=== PATIENT | male | born 1970 | race African-American/Black ===

== ENCOUNTER 2019-09-05 06:41 | Outpatient (CLI) | payer BC, SELFPAY ==
--- NOTE | 2019-09-05 | ECHO_ITS ---
Patient Info Name: Clifton Sanchez Age: 49 years : 1970 Gender: Male Ht: 70 in Wt: 343 lbs BSA: 2.86 m2 HR: 91 bpm BP: 179 / 98 mmHg Technical Quality: Good Exam Date: 09/05/2019 7:15 AM Exam Location: [facility] Patient Status: Outpatient Admit Date: 09/05/2019 Staff Ordering Physician: PHYSICIAN NOT ON STAFF, NONSTAFF Water Plant Maintenance Mechanic: Clint Hernandez RDCS, RT Attending Provider: PHYSICIAN NOT ON STAFF, NONSTAFF Exam Type: CA echo doppler color flow Study Info Indications R60.0 - Localized edema Complete two-dimensional, color flow and Doppler transthoracic echocardiogram is performed. Summary 1. Left ventricular chamber dimension is normal. 2. Left ventricular systolic function is normal, estimated at 55-60%. 3. There is mildly increased left ventricular wall thickness. 4. The left ventricular diastolic function is normal. 5. E/e' 9 is minimally elevated. 6. Dilated inferior vena cava with >50% collapse upon inspiration consistent with elevated right atrial pressure, 10 mmHg. Left Ventricle E/e' 9 is minimally elevated. Left ventricular chamber dimension is normal. Left ventricular systolic function is normal, estimated at 55-60%. There is mildly increased left ventricular wall thickness. The left ventricular diastolic function is normal. Right Ventricle Right ventricular chamber dimension is not well visualized. Left Atria Left atrial chamber dimension is normal. Right Atria Right atrial chamber dimension is normal. Aortic Valve The aortic valve is trileaflet. There is no aortic valve stenosis. There is no aortic valve regurgitation. Pulmonic Valve There is no pulmonic regurgitation. Mitral Valve There is no mitral valve stenosis. There is no mitral valve regurgitation. Tricuspid Valve There is no tricuspid valve regurgitation. Pericardium/Pleural There is no pericardial effusion. Inferior Vena Cava Dilated inferior vena cava with >50% collapse upon inspiration consistent with elevated right atrial pressure, 10 mmHg. Aorta The aortic root size at the sinus of Valsalva is normal. Left Ventricular Outflow Tract Name Value Normal LVOT 2D LVOT Diameter 2.1 cm LVOT Doppler LVOT Peak Gradient 3 mmHg LVOT Mean Gradient 2 mmHg LVOT VTI 19 cm LVOT VTI/AV VTI Ratio 0.9 LVOT Stroke Volume 65 ml LVOT CO 6.0 l/min LVOT CI 2.1 l/min/m2 Pulmonic Valve Name Value Normal PV Doppler PV Peak Gradient 3 mmHg Mitral Valve Name Value Normal
== END 2019-09-05 06:42 | disposition home or self-care (01) ==
LOC: ANHCARD 06:45
PROVIDERS: PCP Family Medicine
DX: R60.1 Generalized edema (principal)
CPT/HCPCS: 93306

== ENCOUNTER 2020-02-25 10:00 | Inpatient (IN) | payer BC, SELFPAY ==
[2020-02-25] VITALS (10 sets, daily range): BP systolic 116–136; BP diastolic 59–85; PULSE 99–118; RESP 16–25; TEMP 36.8–38.9; O2SAT 90–100; BMI 51.7
--- NOTE | ~2020-02-25 | XR_ITS ---
EXAMINATION: XR lumbar spine 2-3V EXAM DATE: 02/26/2020 17:11 INDICATION: Fall, left leg pain and tingling. Urinary retention. TECHNIQUE: Lumber spine frontal, lateral, lateral L5-S1 projections for interpretation. There is no prior study for comparison. FINDINGS: Mild to moderate loss of the L5-S1 disc height, mild disc disease at the other lumbar leve ls. The vertebral body heights are maintained. Mild to moderate lower lumbar spondylosis. There are n o acute fractures identified. There is no spondylolysis. Sacrum, sacroiliac joints, sacral arcuate li omar are intact. Calcifications in the pelvis are believed to be phleboliths. The vertebral bodies are aligned in the AP dimension. IMPRESSION: Mild to moderate lumbar spondylosis. Reviewed, dictated and finalized at location A.
--- NOTE | ~2020-02-25 | CT_ITS ---
EXAMINATION:CT chest wo con DATE: 02/29/2020 09:17 INDICATION: Fever. Atelectasis. TECHNIQUE: Computed tomography (CT) of the chest was performed without intravenous contrast. Automate d exposure control and iterative reconstruction technique were employed. The dose-length product (DLP ) was 1005.90 mGy-cm. COMPARISON: Chest CT 02/20/2008, chest single view 02/25/2020 FINDINGS: There is minimal atelectasis in the lungs. No pleural effusion. The heart size is normal. T here are coronary artery calcifications. No pericardial effusion. There are no pathologically enlarge d lymph nodes. There is diffuse hepatic steatosis. There are bridging endplate osteophytes at multipl e levels in the spine, consistent with diffuse idiopathic skeletal hyperostosis (DISH). There is mild thoracic spondylosis. IMPRESSION: 1. Minimal atelectasis in the lungs. Reviewed, dictated and finalized at location A.
--- NOTE | ~2020-02-25 | US_ITS ---
EXAMINATION: US knee asp inj w image LT DATE: 02/28/2020 16:03 INDICATION: Fever, sepsis and left knee pain and effusion. TECHNIQUE: A time-out was performed to verify the patient's name, date of , and procedure to be performed . The procedure and its benefits and risks were discussed with the patient. Risks specifically discus sed included bleeding and infection. The patient understood the risks and agreed to proceed. Shearing Machine Feeder im ages demonstrated a small amount of fluid in the medial and lateral gutters of the suprapatellar pouc h. An anterior approach targeting the lateral side of the suprapatellar pouch was chosen. The left kn ee was prepped and draped in the usual sterile manner. 3 mL 1% lidocaine was used for local anesthes ia. An 18-gauge trocar needle was advanced into the fluid collection with continuous sonographic guid ance. 9 mm of viscus relatively clear dark yellow-colored fluid was aspirated and sent to the lab for studies as ordered by the referring physician. The needle was removed and a sterile bandage was appl ied. There were no immediate complications. FINDINGS: Grayscale ultrasound images demonstrate the aspiration needle advanced into the small left knee joint effusion located at the lateral aspect of the suprapatellar pouch along side the patella. IMPRESSION: 1. Successful ultrasound-guided fine left knee arthrocentesis. Reviewed, dictated and finalized at location A.
--- NOTE | ~2020-02-25 | XR_ITS ---
EXAMINATION: XR hip LT min 3V w AP pelvis EXAM DATE: 02/26/2020 17:11 INDICATION: Initial encounter following injury, with pain of the pelvis, left hip. TECHNIQUE: Left hip frontal, crosstable lateral and 'frog-leg' projections for interpretation. Fronta l projection pelvis. There is no prior study for comparison. FINDINGS: There is mild to moderate symmetric bilateral hip primary osteoarthritis. There are no acut e pelvic or left hip fractures or dislocations identified. There is no subcutaneous gas. The soft t issue is unremarkable. There are no radiopaque foreign bodies. IMPRESSION: 1. Pelvis, left hip exam without acute osseous findings. Reviewed, dictated and finalized at location A.
--- NOTE | ~2020-02-25 | XR_ITS ---
EXAMINATION: XR chest 1V portable DATE: 02/25/2020 10:27 INDICATION: Fever. TECHNIQUE: A single frontal view of the chest was obtained. COMPARISON: Chest single view 01/27/2008, chest CT 02/20/2008 FINDINGS: Sensitivity and specificity are decreased by obesity. There are airspace opacities in the l ower lung zones. No pleural effusion or pneumothorax. The heart size is normal. IMPRESSION: 1. Airspace opacities in the lower lung zones, consistent with atelectasis versus pneumonia. Reviewed, dictated and finalized at location B. IMPRESSION: 1. Airspace opacities in the lower lung zones, consistent with atelectasis vers us pneumonia.
--- NOTE | ~2020-02-25 | CT_ITS ---
EXAMINATION: CT abdomen pelvis wo con DATE: 02/25/2020 11:41 INDICATION: Flank pain. Fever. TECHNIQUE: Computed tomography (CT) of the abdomen and pelvis was performed without intravenous contr ast. Automated exposure control and iterative reconstruction technique were employed. The dose-length product was 1589.92 mGy-cm. COMPARISON: None. FINDINGS: The visualized portions of the lung bases demonstrate mild atelectasis. No pleural effusion . The heart size is normal. No pericardial effusion. There is diffuse hepatic steatosis. The gallblad jorge, spleen, pancreas, adrenal glands, and kidneys are normal. There is no urolithiasis. The prostate is mildly enlarged. There are no dilated loops of bowel. The appendix is normal. There are no pathol ogically enlarged lymph nodes. There is no free intraperitoneal fluid. There is mild lumbar spondylos is. IMPRESSION: 1. No urolithiasis. Reviewed, dictated and finalized at location B. IMPRESSION: 1. No urolithiasis.
--- NOTE | ~2020-02-25 | US_ITS ---
EXAMINATION: US venous doppler [facility] DATE: 02/26/2020 08:59 INDICATION: Lower limb edema. TECHNIQUE: Grayscale ultrasound images without and with compression and Doppler ultrasound images of the bilateral lower extremity veins were obtained. COMPARISON: Ultrasound 05/26/2019 FINDINGS: The visualized portions of right common femoral vein, profunda (deep) femoral vein, femoral vein, pop liteal vein, peroneal veins, posterior tibial veins, and greater saphenous vein outflow are patent. The visualized portions of left common femoral vein, profunda femoral vein, femoral vein, popliteal v ein, peroneal veins, posterior tibial veins, and greater saphenous vein outflow are patent. IMPRESSION: 1. No deep venous thrombosis. Reviewed, dictated and finalized at location B.
--- NOTE | ~2020-02-25 | XR_ITS ---
EXAMINATION: XR knee LT 3V EXAM DATE: 02/26/2020 17:11 INDICATION: Initial encounter following injury, with pain of the left knee. TECHNIQUE: Three projections of the left knee. Comparison is made to prior examination from 9. FINDINGS: There are no acute left knee fractures or dislocations identified. There is no subcutaneou s gas. No sizable pleural effusion. There is mild edema in the fat pads. There are no radiopaque fo reign bodies. Along the left medial femoral condyle there is approximately 1 cm subchondral lucency which has devel oped. Given the moderate loss of joint space could be subchondral cyst from osteoarthritis. Also cons ider osteochondritis desiccans. There is also development of some bony hypertrophy at the joint space medially, and along the proximal medial tibial plateau. Findings have developed rather rapidly given that these were not evident in May. IMPRESSION: 1. No acute fracture. 2. Interval progression of degenerative changes medial tibiofemoral compartment. Reviewed, dictated and finalized at location A. IMPRESSION: 1. No acute fracture. 2. Interval progression of degenerative changes medial tibiofemoral compartmen t.
--- NOTE | 2020-02-25 10:03 | ECG_ITS ---
Measurements Intervals [place] Rate: 113 P: 51 NJ: 138 QRS: -7 QRSD: 94 T: 62 QT: 316 QTc: 434 Interpretive Statements SINUS TACHYCARDIA LOW QRS VOLTAGE IN PRECORDIAL LEADS BASELINE WANDER- V1 ABNORMAL ECG Electronically Signed On 02-25-2020 10:14:50 CDT by Mervin Ely D.O.
--- NOTE | 2020-02-25 10:03 | ED.FEVER ---
HPI - Fever General Chief Complaint: Fever Stated Complaint: FEVER/UTI Time Seen by Provider: 02/25/20 10:02 Source: patient Mode of arrival: EMS Limitations: no limitations History of Present Illness HPI Narrative: Patient is a 49-year-old diabetic male with chronic kidney disease who presents for evaluation of fever and dysuria. Patient has a history of urinary tract infection, has had urgency, urinary retention, and urinary frequency over the past 48 hours. Patient with a history of type 2 diabetes, glucose in route was 251. Patient states he has been febrile over the past 4 days, patient's states highest temperature was 103 Fahrenheit at home. Not much response with Tylenol. Patient denies any nausea or vomiting. No cough or shortness of breath. Patient and family have been quarantining at home, no COVID type exposures. Related Data Allergies Allergy/AdvReac Type Severity Reaction Status Date / Time NSAIDS (Non-Steroidal Allergy Mild Itching Verified 05/15/17 21:56 Anti-Inflamma cetirizine [From Zyrtec] Allergy Unknown Verified 02/25/20 10:05 levofloxacin [From Levaquin] Allergy Unknown Verified 02/25/20 10:30 Review of Systems Review of Systems: Narrative: CONSTITUTIONAL: Reports fever and chills CARDIOVASCULAR: Denies chest pain RESPIRATORY: Denies cough or dyspnea. GASTROINTESTINAL: Denies abdominal pain : Reports dysuria, hematuria, hesitancy SKIN: Denies rash MUSCULOSKELETAL: Denies back pain NEUROLOGIC: Denies headache PMFSH Past Medical History Medical History Closed right ankle fracture Hyperlipidemia Hypertension Osteomyelitis Sleep apnea Type 2 diabetes mellitus Surgical History Surgical History History of tonsillectomy Social History Social History (Updated 02/25/20 @ 10:07 by Christina Seo MD) Smoking status: Current some day smoker Tobacco type: pipe Alcohol intake: current Substance use: never Gender identity (if verbalized by the patient): Male Exam Narrative: Exam Narrative: GENERAL: Awake, alert, conversant HEAD: Normocephalic, atraumatic. EYES: PERRLA and EOMI. ENT: Nares clear, no rhinorrhea or epistaxis. Mucous membranes moist. NECK: Supple. CHEST: No respiratory distress, breathing even and non labored HEART: Tachycardic rate, sinus rhythm ABDOMEN: Obese, non distended, mild suprapubic tenderness EXTREMITIES: Normal range of motion. Bilateral pitting edema 1+ to the mid shins. SKIN: Warm, dry, no rash. NEURO:No focal deficits. Alert and oriented x3 Course Vital Signs Vital signs: Vital Signs Temperature 38.9 C H 02/25/20 09:58 Pulse Rate 118 H 02/25/20 09:58 Respiratory Rate 22 H 02/25/20 09:58 Blood Pressure 122/85 02/25/20 09:58 Pulse Oximetry 90 02/25/20 09:58 Temperature 38.9 C H 02/25/20 09:58 Pulse Rate 101 H 02/25/20 12:46 Respiratory Rate 20 02/25/20 12:46 Blood Pressure 116/59 L 02/25/20 12:46 Pulse Oximetry 97 02/25/20 12:46 MDM - Fever MDM Narrative Medical decision making narrative: Patient is a 49-year-old male with a history of chronic kidney disease, congestive heart failure, who presents for evaluation of fever and urinary type symptoms. At the time of initial assessment, ABCs are intact, vital signs are notable for tachycardia, tachypnea, patient is febrile. Borderline hypoxemic, patient is not on any home oxygen. Patient is not hypotensive. Given concern for sepsis, IV access was obtained and labs are drawn. Blood cultures were obtained. I initially withheld a 30 mL/kg fluid bolus based on the patient's weight that would be almost 5 L of fluid, given his history of CHF and pitting edema on physical exam I felt that that amount of fluids would be detrimental to the patient. He was given 2 L of fluids. Patient's laboratory results consistent with severe sepsis with elevated lactate, l
[2020-02-25 10:18] LABS: Basophils Percent Auto 0.2 % (0.2-1.2); Eosinophils Percent Auto 0.1 % (0-4.4); Hematocrit 26.5 % (42.0-52.0); Hemoglobin 8.4 g/dL (14.0-18.0); Immature Granulocyte Absolute 0.13 K/mm3 (0.00-0.031); Immature Granulocyte Percent A 0.8 % (0-0.5); Lymphocytes Absolute Auto 1.41 K/mm3 (0.9-3.2); Lymphocytes Percent Auto 8.3 % (18.3-44.2); Mean Corpuscular HGB Conc 31.7 g/dl (32-36); Mean Corpuscular Hemoglobin 28.8 pg (26-34); Mean Corpuscular Volume 90.8 fl (80-100); Mean Platelet Volume 11.8 fl (7.4-10.4); Monocytes Absolute Auto 2.1 K/mm3 (0.1-0.6); Monocytes Percent Auto 12.2 % (2.6-8.5); Neutrophils Absolute Auto 13.3 K/mm3 (1.3-6.7); Neutrophils Percent Auto 78.4 % (45.5-73.1); Platelet Count Result 204 k/mm3 (150-375); Red Blood Count 2.92 M/mm3 (4.6-6.20); Red Cell Distribution Width 15.4 % (11.5-14.5)
[2020-02-25 10:28] LABS: INR 1.2; Prothrombin Time 15.3 Seconds (11.1-14.7)
[2020-02-25 10:29] LABS: Partial Thromboplastin Time 31.8 SECONDS (22.3-36.8)
[2020-02-25 10:30] LABS: Lactic Acid Reflex 3.7 mmol/L (0.7-2.1)
[2020-02-25 10:38] LABS: Alanine Aminotransferase 24 U/L (4-50); Albumin Level 3.9 g/dL (3.5-5.1); Alkaline Phosphatase 100 U/L (38-126); Anion Gap 12 mmol/L (8-16); Aspartate Amino Transferase 28 U/L (17-59); Bilirubin,Total 0.9 mg/dL (0.2-1.3); Blood Urea Nitrogen 39 mg/dL (9-20); Calcium 8.6 mg/dL (8.4-10.2); Carbon Dioxide 25 mmol/L (22-30); Chloride 99 mmol/L (98-107); Estimated CRCL calculation 57 ml/min; Estimated Glomerular Filt Rate 39; Glucose 252 mg/dL (75-110); Potassium 4.2 mmol/L (3.4-5.0); Sodium 136 mmol/L (137-145)
--- NOTE | 2020-02-25 10:48 | PC.NURSE ---
per erp bertels pt to have 2L NS bolus, not the original order due to pt having hx of chf.
[2020-02-25 10:58] LABS: NT Pro B Type Natriuretic Pept 731 PG/ML (5-100)
[2020-02-25 11:00] LABS: Add Urine Microscopic? YES; Appearance Urine Cloudy (Clear); Bilirubin Urine Negative (Negative); Blood Urine Negative (Negative); Color Urine Yellow (Yellow); Glucose Urine UA Negative (Negative); Ketones Urine Negative (Negative); Leukocyte Esterase Ur 3+ LEU/UL (Negative); Mucus Urine Rare /lpf; Nitrate Urine Negative (Negative); Protein Urine 1+ mg/dL (Negative); Specific Grav Ur 1.012 (1.001-1.035); Squamous Epithelial Cell Urine Rare /hpf (Few); Urobilinogen Urine Negative mg/dL (<2.0); WBC Clumps Urine Present /HPF; WBC Urine >75 /hpf
--- NOTE | 2020-02-25 11:02 | PC.NURSE ---
bedside report to keren aponte at this time, she has assumed pt care.
[2020-02-25 11:18] LABS: CRP 21.6 mg/dL (<1.0)
[2020-02-25 13:16] LABS: Reflex Lactic Acid Yes or No Add Lactic
--- NOTE | 2020-02-25 13:27 | PC.NURSE ---
[address] Seo pt is only to receive 2L of NS on the sepsis protocol 2L have infused at this time
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
[2020-02-25] MEDS: SODIUM CHLORIDE 0.9% IV 1,000 ML 125 ML IV CONT (15:14)
--- NOTE | 2020-02-25 15:42 | ADMGEN ---
This patient, Clifton Valladares, was admitted to 2 Medical Room 249-01. Patient/family oriented to hospital policies and general routines including ID bracelet, bed and alarms, visiting hours, pain management, procedures, bathroom and other care routines, personal items, smoking policy, room service/diet, and visiting hours. Valuables list has been completed. Information on how to activate the Rapid Response Team has been discussed. Patient/Family are encouraged to report perceived risks to care and to ask questions if they do not understand what they are told or what they should do.
[2020-02-25 19:06] LABS: Glucose Point of Care 249 (65-105)
[2020-02-25 19:51] LABS: Lactic Acid 1.1 mmol/L (0.7-2.1)
[2020-02-25 20:33] LABS: Hemoglobin A1C 6.7 % (<5.7)
[2020-02-25] MEDS: [UNRECOGNIZED DRUG - OTHER] XX (21:14)
[2020-02-25] MEDS: hydrALAZINE HCL 50 MG TABLET 100 MG PO (21:14)
[2020-02-25] MEDS: ISOSORBIDE DINITRATE 20 MG TABLET PO (21:14)
[2020-02-25] MEDS: PREGABALIN 50 MG CAPSULE 100 MG PO (21:14)
[2020-02-25 21:34] LABS: Glucose Point of Care 220 (65-105)
[2020-02-26] VITALS (12 sets, daily range): BP systolic 111–132; BP diastolic 53–69; PULSE 101–111; RESP 16–22; TEMP 36.4–37.4; O2SAT 92–96; BMI 53.1
[2020-02-26] MEDS: ISOSORBIDE DINITRATE 20 MG TABLET PO ×3 (06:15→21:40)
[2020-02-26] MEDS: hydrALAZINE HCL 50 MG TABLET 100 MG PO ×3 (06:15→21:40)
[2020-02-26 06:29] LABS: Glucose Point of Care 137 (65-105)
[2020-02-26 07:58] LABS: Glucose Point of Care 143 (65-105)
[2020-02-26] MEDS: CHOLECALCIFEROL 1,000 UNIT TABLET 5000 UNITS PO (09:08)
[2020-02-26] MEDS: EZETIMIBE 10 MG TABLET PO (09:08)
[2020-02-26] MEDS: ENOXAPARIN 40 MG/0.4 ML SYRINGE SUB-Q (09:08)
[2020-02-26] MEDS: PREGABALIN 50 MG CAPSULE 100 MG PO ×4 (09:08→21:39)
[2020-02-26] MEDS: carvediloL 25 MG TABLET PO (09:09)
[2020-02-26] MEDS: TORSEMIDE 20 MG TABLET 40 MG PO ×2 (09:09→17:52)
[2020-02-26] MEDS: ATORVASTATIN 40 MG TABLET 80 MG PO (09:09)
[2020-02-26] MEDS: LORATADINE 10 MG TABLET PO (09:09)
[2020-02-26] MEDS: ACETAMINOPHEN 325 MG TABLET 650 MG PO (10:06)
[2020-02-26 11:46] LABS: Glucose Point of Care 223 (65-105)
[2020-02-26] MEDS: polyethylene glycoL 3350 17 GM POWD.PACK PO (12:34)
[2020-02-26] MEDS: ACIDOPHILUS/BULGARICUS CHEWABLE TABLET 1 TABLET PO (12:35)
[2020-02-26] MEDS: FAMOTIDINE 20 MG TABLET PO ×2 (13:18→21:40)
--- NOTE | 2020-02-26 16:15 | P.PNIM_ITS ---
Progress Note: A&P Assessment and Plan (1) UTI (urinary tract infection): Qualifiers: Hematuria presence: without hematuria Urinary tract infection type: acute cystitis Qualified Code(s): N30.00 - Acute cystitis without hematuria Code(s): N39.0 - Urinary tract infection, site not specified Status: Acute Assessment and Plan: * Patient presented due to fever and urinary hesitancy, urgency, and frequency. He noted he has seen urologist, Dr Jamil, in the past. * Urinary catheter was placed due to urinary retention. * Continue IV ceftriaxone with urine culture pending. Blood cultures pending with no growth to date. (2) Sepsis: Qualifiers: Sepsis acute organ dysfunction status: unspecified Sepsis type: sepsis due to unspecified organism Qualified Code(s): A41.9 - Sepsis, unspecified organism Code(s): A41.9 - Sepsis, unspecified organism Status: Acute Assessment and Plan: * Present on admission and supported by fever, tachycardia, leukocytosis, and elevated lactic acid level; suspected source is urinary. * Monitor urine output and vital signs. He is stable today. (3) Insulin dependent diabetes mellitus: Status: Acute Assessment and Plan: * Continue insulin pump; patient will be filling out an insulin pump agreement. * Initiate Accu-Cheks and hypoglycemic protocol. (4) Obstructive sleep apnea on CPAP: Code(s): G47.33 - Obstructive sleep apnea (adult) (pediatric); Z99.89 - Dependence on other enabling machines and devices Status: Acute Assessment and Plan: * CPAP. (5) Chronic obstructive pulmonary disease: Qualifiers: COPD type: unspecified COPD Qualified Code(s): J44.9 - Chronic obstructive pulmonary disease, unspecified Code(s): J44.9 - Chronic obstructive pulmonary disease, unspecified Status: Acute Assessment and Plan: * Continue inhalers. No respiratory distress. Will monitor. (6) Chronic kidney disease: Qualifiers: Chronic kidney disease stage: stage 3 (moderate) Qualified Code(s): N18.3 - Chronic kidney disease, stage 3 (moderate) Code(s): N18.9 - Chronic kidney disease, unspecified Status: Acute Assessment and Plan: * His creatinine varies as well as his fluid status. He received IV fluid rehydration emergency department due to lactic acidosis. * Discontinue further IV fluid and resume torsemide given significant swelling. * His looper operator is Dr Annette Loco at [facility]. (7) Congestive heart failure: Qualifiers: Heart failure type: unspecified Heart failure chronicity: unspecified Qualified Code(s): I50.9 - Heart failure, unspecified Code(s): I50.9 - Heart failure, unspecified Status: Chronic Assessment and Plan: * Chest x-ray showed atelectasis versus pneumonia, however the visualized portions of the lung bases demonstrated only mild atelectasis without pleural effusions. * Appears he was recently diagnosed and was hospitalized at [facility] December 2019 for acute CHF. Will review records from [facility] once available. * His credit card associate is at [facility]. * Continue to monitor volume status closely with I/ O and daily weights. Subjective Date/time seen: 02/26/20 1200 Interval history: Mr. Sanchez is a 49yo M admitted for UTI. He reports
--- NOTE | 2020-02-26 16:15 | PM.IMPN ---
Progress Note: A&P Assessment and Plan (1) UTI (urinary tract infection): Qualifiers: Hematuria presence: without hematuria Urinary tract infection type: acute cystitis Qualified Code(s): N30.00 - Acute cystitis without hematuria Code(s): N39.0 - Urinary tract infection, site not specified Status: Acute Assessment and Plan: Patient presented due to fever and urinary hesitancy, urgency, and frequency. He noted he has seen urologist, Dr Jamil, in the past. Urinary catheter was placed due to urinary retention. Continue IV ceftriaxone with urine culture pending. Blood cultures pending with no growth to date. (2) Sepsis: Qualifiers: Sepsis acute organ dysfunction status: unspecified Sepsis type: sepsis due to unspecified organism Qualified Code(s): A41.9 - Sepsis, unspecified organism Code(s): A41.9 - Sepsis, unspecified organism Status: Acute Assessment and Plan: Present on admission and supported by fever, tachycardia, leukocytosis, and elevated lactic acid level; suspected source is urinary. Monitor urine output and vital signs. He is stable today. (3) Insulin dependent diabetes mellitus: Status: Acute Assessment and Plan: Continue insulin pump; patient will be filling out an insulin pump agreement. Initiate Accu-Cheks and hypoglycemic protocol. (4) Obstructive sleep apnea on CPAP: Code(s): G47.33 - Obstructive sleep apnea (adult) (pediatric); Z99.89 - Dependence on other enabling machines and devices Status: Acute Assessment and Plan: CPAP. (5) Chronic obstructive pulmonary disease: Qualifiers: COPD type: unspecified COPD Qualified Code(s): J44.9 - Chronic obstructive pulmonary disease, unspecified Code(s): J44.9 - Chronic obstructive pulmonary disease, unspecified Status: Acute Assessment and Plan: Continue inhalers. No respiratory distress. Will monitor. (6) Chronic kidney disease: Qualifiers: Chronic kidney disease stage: stage 3 (moderate) Qualified Code(s): N18.3 - Chronic kidney disease, stage 3 (moderate) Code(s): N18.9 - Chronic kidney disease, unspecified Status: Acute Assessment and Plan: His creatinine varies as well as his fluid status. He received IV fluid rehydration emergency department due to lactic acidosis. Discontinue further IV fluid and resume torsemide given significant swelling. His crusher loader equipment operator is Dr Annette Loco at [facility]. (7) Congestive heart failure: Qualifiers: Heart failure type: unspecified Heart failure chronicity: unspecified Qualified Code(s): I50.9 - Heart failure, unspecified Code(s): I50.9 - Heart failure, unspecified Status: Chronic Assessment and Plan: Chest x-ray showed atelectasis versus pneumonia, however the visualized portions of the lung bases demonstrated only mild atelectasis without pleural effusions. Appears he was recently diagnosed and was hospitalized at [facility] December 2019 for acute CHF. Will review records from [facility] once available. His stonecutter is at [facility]. Continue to monitor volume status closely with I/ O and daily weights. Subjective Date/time seen: 02/26/20 1200 Interval history: Mr. Sanchez is a 49yo M admitted for UTI. He reports feeling pretty poorly overall. He mentions some stomach upset which he has a hard time describing but notes he is not nauseous or vomiting, more indigestion . Denies abdominal pain per se. No diarrhea. Tolerating oral intake. No chest pain or shortness of breath. He describes left knee pain which is acute on chronic as he has arthritis, but mentions numbness and tingling down his lef
[2020-02-26 17:11] LABS: Glucose Point of Care 187 (65-105)
[2020-02-26] MEDS: [UNRECOGNIZED DRUG - OTHER] XX (21:00)
[2020-02-26] MEDS: NEOMYCIN/POLYMYXIN/DEXAMETH OP SUSP 5 ML BTL 1 DROP EACH EYE (21:46)
[2020-02-27] VITALS (9 sets, daily range): BP systolic 118–120; BP diastolic 51–63; PULSE 98–112; RESP 20–23; TEMP 37.2–38.1; O2SAT 90–94
[2020-02-27] MEDS: NEOMYCIN/POLYMYXIN/DEXAMETH OP SUSP 5 ML BTL 1 DROP EACH EYE ×6 (01:28→20:47)
[2020-02-27] MEDS: ACETAMINOPHEN 325 MG TABLET 650 MG PO ×3 (02:56→18:37)
[2020-02-27 06:01] LABS: Basophils Percent Auto 0.1 % (0.2-1.2); Eosinophils Absolute Auto 0.1 K/mm3 (0-0.3); Eosinophils Percent Auto 0.9 % (0-4.4); Hematocrit 22.3 % (42.0-52.0); Hemoglobin 7.1 g/dL (14.0-18.0); Immature Granulocyte Absolute 0.04 K/mm3 (0.00-0.031); Immature Granulocyte Percent A 0.4 % (0-0.5); Lymphocytes Absolute Auto 1.48 K/mm3 (0.9-3.2); Mean Corpuscular HGB Conc 31.8 g/dl (32-36); Mean Corpuscular Hemoglobin 28.3 pg (26-34); Mean Corpuscular Volume 88.8 fl (80-100); Mean Platelet Volume 12.8 fl (7.4-10.4); Monocytes Absolute Auto 1.2 K/mm3 (0.1-0.6); Monocytes Percent Auto 10.3 % (2.6-8.5); Neutrophils Absolute Auto 8.6 K/mm3 (1.3-6.7); Neutrophils Percent Auto 75.3 % (45.5-73.1); Platelet Count Result 197 k/mm3 (150-375); Red Blood Count 2.51 M/mm3 (4.6-6.20); Red Cell Distribution Width 15.5 % (11.5-14.5); White Blood Count 11.4 K/mm3 (4.5-10.0)
[2020-02-27 06:07] LABS: Anion Gap 9 mmol/L (8-16); Blood Urea Nitrogen 43 mg/dL (9-20); Calcium 8.4 mg/dL (8.4-10.2); Carbon Dioxide 26 mmol/L (22-30); Chloride 101 mmol/L (98-107); Estimated CRCL calculation 70 ml/min; Estimated Glomerular Filt Rate 49; Glucose 134 mg/dL (75-110); Magnesium 1.5 mg/dL (1.6-2.3); Potassium 3.9 mmol/L (3.4-5.0); Sodium 136 mmol/L (137-145)
[2020-02-27] MEDS: ISOSORBIDE DINITRATE 20 MG TABLET PO ×3 (06:33→20:47)
[2020-02-27] MEDS: hydrALAZINE HCL 50 MG TABLET 100 MG PO ×3 (06:34→20:47)
[2020-02-27] MEDS: [UNRECOGNIZED DRUG - OTHER] XX ×2 (06:36→14:46)
[2020-02-27 07:34] LABS: Glucose Point of Care 134 (65-105)
[2020-02-27] MEDS: polyethylene glycoL 3350 17 GM POWD.PACK PO (08:37)
[2020-02-27] MEDS: ENOXAPARIN 40 MG/0.4 ML SYRINGE SUB-Q (08:37)
[2020-02-27] MEDS: PREGABALIN 50 MG CAPSULE 100 MG PO ×4 (08:38→20:50)
[2020-02-27] MEDS: LORATADINE 10 MG TABLET PO (08:38)
[2020-02-27] MEDS: MAGNESIUM SULF 2 GM/WATER 50ML 2 GM/50 ML BAG IVPB (08:38)
[2020-02-27] MEDS: ATORVASTATIN 40 MG TABLET 80 MG PO (08:38)
[2020-02-27] MEDS: TORSEMIDE 20 MG TABLET 40 MG PO ×2 (08:39→16:36)
[2020-02-27] MEDS: ACIDOPHILUS/BULGARICUS CHEWABLE TABLET 1 TABLET PO (08:39)
[2020-02-27] MEDS: TAMSULOSIN HCL 0.4 MG CAPSULE PO (08:39)
[2020-02-27] MEDS: CHOLECALCIFEROL 1,000 UNIT TABLET 5000 UNITS PO (08:39)
[2020-02-27] MEDS: FAMOTIDINE 20 MG TABLET PO ×2 (08:39→20:47)
[2020-02-27] MEDS: carvediloL 25 MG TABLET PO (08:39)
[2020-02-27] MEDS: EZETIMIBE 10 MG TABLET PO (08:39)
[2020-02-27] MEDS: ONDANSETRON INJ 4 MG/2 ML VIAL IV PUSH (10:36)
[2020-02-27 11:21] LABS: Glucose Point of Care 215 (65-105)
[2020-02-27] MEDS: [UNRECOGNIZED DRUG - OTHER] SUB-Q (11:22)
--- NOTE | 2020-02-27 12:47 | PM.IMPN ---
Progress Note: A&P Assessment and Plan (1) UTI (urinary tract infection): Qualifiers: Hematuria presence: without hematuria Urinary tract infection type: acute cystitis Qualified Code(s): N30.00 - Acute cystitis without hematuria Code(s): N39.0 - Urinary tract infection, site not specified Status: Acute Assessment and Plan: Patient presented due to fever and urinary hesitancy, urgency, and frequency. He noted he has seen urologist, Dr Jamil, in the past. Urinary catheter was placed due to urinary retention. Flomax started. Voiding trial this afternoon. Continue IV ceftriaxone (day 3); urine culture growing Klebsiella, blood cultures are pending with no growth to date. (2) Sepsis: Qualifiers: Sepsis acute organ dysfunction status: unspecified Sepsis type: sepsis due to unspecified organism Qualified Code(s): A41.9 - Sepsis, unspecified organism Code(s): A41.9 - Sepsis, unspecified organism Status: Acute Assessment and Plan: Present on admission and supported by fever, tachycardia, leukocytosis, and elevated lactic acid level; suspected source is urinary. Monitor urine output and vital signs. He is stable today. (3) Insulin dependent diabetes mellitus: Status: Chronic Assessment and Plan: Continue insulin pump; monitor with accu-cheks and adjust treatment as needed. (4) Obstructive sleep apnea on CPAP: Code(s): G47.33 - Obstructive sleep apnea (adult) (pediatric); Z99.89 - Dependence on other enabling machines and devices Status: Chronic Assessment and Plan: CPAP. (5) Chronic obstructive pulmonary disease: Qualifiers: COPD type: unspecified COPD Qualified Code(s): J44.9 - Chronic obstructive pulmonary disease, unspecified Code(s): J44.9 - Chronic obstructive pulmonary disease, unspecified Status: Chronic Assessment and Plan: Continue inhalers. No respiratory distress. Will monitor. (6) Chronic kidney disease: Qualifiers: Chronic kidney disease stage: stage 3 (moderate) Qualified Code(s): N18.3 - Chronic kidney disease, stage 3 (moderate) Code(s): N18.9 - Chronic kidney disease, unspecified Status: Chronic Assessment and Plan: His creatinine varies as well as his fluid status. He received IV fluid rehydration emergency department due to lactic acidosis. Discontinue further IV fluid and resume torsemide given significant swelling. His extension service agent is Dr Annette Loco at [facility]. (7) Congestive heart failure: Qualifiers: Heart failure type: unspecified Heart failure chronicity: unspecified Qualified Code(s): I50.9 - Heart failure, unspecified Code(s): I50.9 - Heart failure, unspecified Status: Chronic Assessment and Plan: Chest x-ray showed atelectasis versus pneumonia, however the visualized portions of the lung bases demonstrated only mild atelectasis without pleural effusions. Appears he was recently diagnosed and was hospitalized at [facility] December 2019 for acute CHF. Will review records from [facility] once available. His county extension agent is at [facility]. Continue to monitor volume status closely with I/ O and daily weights. (8) Degenerative joint disease: Code(s): M19.90 - Unspecified osteoarthritis, unspecified site Status: Chronic Assessment and Plan: Patient reports left knee pain. XR shows Interval progression of degenerative changes medial tibiofemoral compartment compared to imaging 05/2019. Patient notes he has seen Dr Reyna in the past. I suggested to patient and his that he will benefit from following up with Dr Lopez
[2020-02-27 16:35] LABS: Glucose Point of Care 155 (65-105)
[2020-02-27 21:01] LABS: Glucose Point of Care 141 (65-105)
[2020-02-28] VITALS (20 sets, daily range): BP systolic 117–178; BP diastolic 53–84; PULSE 87–110; RESP 18–22; TEMP 36.3–38.8; O2SAT 91–99
[2020-02-28] MEDS: ACETAMINOPHEN 325 MG TABLET 650 MG PO ×3 (04:01→17:11)
[2020-02-28] MEDS: NEOMYCIN/POLYMYXIN/DEXAMETH OP SUSP 5 ML BTL 1 DROP EACH EYE ×5 (04:02→21:14)
--- NOTE | 2020-02-28 04:03 | PC.NURSE ---
patient unable to void. dr. eng informed and orders recieved.
[2020-02-28] MEDS: hydrALAZINE HCL 50 MG TABLET 100 MG PO ×3 (06:06→21:14)
[2020-02-28] MEDS: ISOSORBIDE DINITRATE 20 MG TABLET PO ×3 (06:06→21:14)
[2020-02-28 06:32] LABS: Basophils Percent Auto 0.3 % (0.2-1.2); Eosinophils Absolute Auto 0.2 K/mm3 (0-0.3); Eosinophils Percent Auto 2.1 % (0-4.4); Hematocrit 21.4 % (42.0-52.0); Immature Granulocyte Absolute 0.06 K/mm3 (0.00-0.031); Immature Granulocyte Percent A 0.8 % (0-0.5); Lymphocytes Absolute Auto 1.26 K/mm3 (0.9-3.2); Lymphocytes Percent Auto 16.4 % (18.3-44.2); Mean Corpuscular HGB Conc 31.8 g/dl (32-36); Mean Corpuscular Hemoglobin 28.2 pg (26-34); Mean Corpuscular Volume 88.8 fl (80-100); Mean Platelet Volume 11.8 fl (7.4-10.4); Monocytes Absolute Auto 0.9 K/mm3 (0.1-0.6); Monocytes Percent Auto 12.2 % (2.6-8.5); Neutrophils Absolute Auto 5.2 K/mm3 (1.3-6.7); Neutrophils Percent Auto 68.2 % (45.5-73.1); Platelet Count Result 205 k/mm3 (150-375); Red Blood Count 2.41 M/mm3 (4.6-6.20); Red Cell Distribution Width 15.6 % (11.5-14.5); White Blood Count 7.7 K/mm3 (4.5-10.0)
[2020-02-28 06:36] LABS: Hemoglobin 6.8 g/dL (14.0-18.0)
[2020-02-28 07:01] LABS: Anion Gap 9 mmol/L (8-16); Blood Urea Nitrogen 49 mg/dL (9-20); Calcium 8.3 mg/dL (8.4-10.2); Carbon Dioxide 26 mmol/L (22-30); Chloride 99 mmol/L (98-107); Estimated CRCL calculation 90 ml/min; Estimated Glomerular Filt Rate 46; Glucose 100 mg/dL (75-110); Magnesium 1.7 mg/dL (1.6-2.3); Sodium 134 mmol/L (137-145)
[2020-02-28 07:03] LABS: Erythrocyte Sedimentation Rate > 140 mm/hr (0-20)
[2020-02-28 07:52] LABS: Glucose Point of Care 95 (65-105)
[2020-02-28] MEDS: ACIDOPHILUS/BULGARICUS CHEWABLE TABLET 1 TABLET PO (09:12)
[2020-02-28] MEDS: MAGNESIUM OXIDE 200 MG TABLET PO ×2 (09:12→21:13)
[2020-02-28] MEDS: ATORVASTATIN 40 MG TABLET 80 MG PO (09:13)
[2020-02-28] MEDS: carvediloL 25 MG TABLET PO (09:14)
[2020-02-28] MEDS: CHOLECALCIFEROL 1,000 UNIT TABLET 5000 UNITS PO (09:14)
[2020-02-28] MEDS: FAMOTIDINE 20 MG TABLET PO ×2 (09:15→21:13)
[2020-02-28] MEDS: EZETIMIBE 10 MG TABLET PO (09:15)
[2020-02-28] MEDS: LORATADINE 10 MG TABLET PO (09:15)
[2020-02-28] MEDS: TAMSULOSIN HCL 0.4 MG CAPSULE PO (09:16)
[2020-02-28] MEDS: polyethylene glycoL 3350 17 GM POWD.PACK PO (09:16)
[2020-02-28] MEDS: TORSEMIDE 20 MG TABLET 40 MG PO ×2 (09:16→21:14)
[2020-02-28] MEDS: PREGABALIN 50 MG CAPSULE 100 MG PO ×4 (09:28→21:16)
--- NOTE | 2020-02-28 11:00 | PM.IMPN ---
Progress Note: A&P Assessment and Plan (1) Anemia: Qualifiers: Anemia type: iron deficiency Iron deficiency anemia type: unspecified iron deficiency Qualified Code(s): D50.9 - Iron deficiency anemia, unspecified Code(s): D64.9 - Anemia, unspecified Status: Acute Assessment and Plan: Acute on chronic. May be related to acute infection in the setting of known chronic iron deficiency anemia. Iron panel and stool occult blood are pending. Hgb 6.8 this morning; plan to transfuse 2 units packed RBC and gentle diuresis following. No evidence of acute bleeding. Monitor H&H. (2) UTI (urinary tract infection): Qualifiers: Hematuria presence: without hematuria Urinary tract infection type: acute cystitis Qualified Code(s): N30.00 - Acute cystitis without hematuria Code(s): N39.0 - Urinary tract infection, site not specified Status: Acute Assessment and Plan: Patient presented due to fever and urinary hesitancy, urgency, and frequency. He noted he has seen urologist, Dr Jamil, in the past. Continue IV ceftriaxone (day 4); urine culture growing Klebsiella, blood cultures are pending with no growth to date. (3) Urinary retention: Code(s): R33.9 - Retention of urine, unspecified Status: Acute Assessment and Plan: May be related to acute UTI vs. BPH vs. both. Started flomax. Failed voiding trials. He has a urologist at [facility], Dr Jamil. I feel it is most appropriate to have him follow up with his established urologist after discharge with whom he has an appointment scheduled for 03/05. Likely will have to discharge with Reynolds catheter. (4) Sepsis: Qualifiers: Sepsis acute organ dysfunction status: unspecified Sepsis type: sepsis due to unspecified organism Qualified Code(s): A41.9 - Sepsis, unspecified organism Code(s): A41.9 - Sepsis, unspecified organism Status: Acute Assessment and Plan: Present on admission and supported by fever, tachycardia, leukocytosis, and elevated lactic acid level; suspected source is urinary. Chest XR showed airspace opacities in lower lungs/ abd ct shows visualized portions of lung bases with mild atelectasis. Dr Reyna ordered left knee aspiration this afternoon. Monitor urine output and vital signs. Febrile this morning. (5) Insulin dependent diabetes mellitus: Status: Chronic Assessment and Plan: Continue insulin pump; monitor with accu-cheks and adjust treatment as needed. (6) Chronic obstructive pulmonary disease: Qualifiers: COPD type: unspecified COPD Qualified Code(s): J44.9 - Chronic obstructive pulmonary disease, unspecified Code(s): J44.9 - Chronic obstructive pulmonary disease, unspecified Status: Chronic Assessment and Plan: Continue inhalers. No respiratory distress. Will monitor. Add incentive spirometer given the atelectasis. (7) Chronic kidney disease: Qualifiers: Chronic kidney disease stage: stage 3 (moderate) Qualified Code(s): N18.3 - Chronic kidney disease, stage 3 (moderate) Code(s): N18.9 - Chronic kidney disease, unspecified Status: Chronic Assessment and Plan: His creatinine varies as well as his fluid status. He received IV fluid rehydration emergency department due to lactic acidosis. His torsemide has been resumed given significant swelling. His field service analyst is Dr Annette Loco at [facility]. (8) Congestive heart failure: Qualifiers: Heart failure chronicity: unspecified Heart failure type: unspecified Qualified Code(s): I50.9 - Heart failure, unspecified Code(s): I50.9 - H
[2020-02-28 11:50] LABS: Glucose Point of Care 211 (65-105)
[2020-02-28] MEDS: oxyCODONE/ACETAMINOPHEN 5-325 MG TABLET 1 TABLET PO (12:18)
[2020-02-28] MEDS: FERROUS SULFATE 324 MG TABLET PO (12:23)
--- NOTE | 2020-02-28 13:10 | PCPTNOTE ---
Clifton Sanchez was evaluated for a bariatric wheeled walker on 02/28/2020 by this physical therapist (266.4 kg). The bariatric wheeled walker will resolve patient's mobility limitations and will be used for ADL's within the home. The patient can safely use the bariatric wheeled walker. ?The bariatric wheeled walker will resolve the patient?s mobility deficits, including impaired balance and endurance.
--- NOTE | 2020-02-28 15:14 | PM.CNOR ---
Assessment and Plan Additional Plan Patient is a 49-year-old gentleman who has severe medial compartment osteoarthritis in the left knee. His symptoms have been more severe during the past year. He has previously been evaluated and he had a cortisone shot in the knee approximately 1 year ago. He was told that he was too heavy to have knee replacement surgery and that he needed to lose weight. He has not lost weight. The chart says he weighs over 500 lb but that is an error in the bed has been recalcitrant braided. His weight had been running 368 lb consistently. He has become progressively more sedentary. He uses a cane at home but here is been using a walker. He had asked that we evaluate him for his knee arthritis in follow-up since he is here. He has noticed no change in his knee symptoms over the past 8-10 months. They have been severe and remains severe with weight-bearing is comfortable at rest. He is currently receiving ceftriaxone for antibiotics. His C-reactive protein was 22 and the sedimentation rate greater than 140. On admission he had evidence of severe UTI with greater than 75 white cells and white cell clumping and clean catch urine culture grew Klebsiella pneumonia. He had blood cultures drawn on 02/25/2020 which are negative so far. He has significant comorbidities including chronic anemia chronic kidney disease COPD congestive heart failure diabetic peripheral neuropathy hypertension hyperlipidemia. His hemoglobin dropped 1 g each day for the past 3 days was 6.8 this morning and he is being transfused. His source of blood loss is not clear. He was admitted to the hospital On 02/25/2020 and at that time his white count was 17 1000. His white count today is 7000. He has admitting diagnosis of sepsis which was thought to be of urinary origin. He has been running a fever intermittently. He has been getting up to walk around the room with his walker. Has a history of rash with nonsteroidal anti-inflammatory medications history of angioedema with levofloxacin. On exam today there is no erythema warmth or soft tissue swelling around the left knee. He has range of motion from 5? to 90? with mild soreness at full flexion. He has a mild effusion. There is no significant superficial tenderness about the left knee today. There is no instability. He was able to do a straight leg raise and had range of motion of the left hip passively without discomfort. X-rays of the left knee demonstrated [id number] medial compartment osteoarthritis. There is a 1 cm subchondral lucency medial aspect of medial femoral condyle there sclerotic changes and hypertrophic changes consistent with progressive medial compartment osteoarthritis severe. Of course, chronic septic arthritis with secondary osteomyelitis could have this appearance. Patient has chronic Severe osteoarthritis in his left knee and extreme morbid obesity. He has comorbidities in part related to his extreme obesity and he has been advised to lose weight before considering knee replacement. I have explained to him that he is going to have to do this by decreasing his daily Evens intake and I would recommend he seek the advice of a dietitian so that this is done carefully and appropriately and successfully. Bariatric surgery might be a consideration however is multiple comorbidities would put him at higher risk for bariatric surgery as well. I spoke with the patient as well as his who was on the phone on speaker phone. I would not recommend cortisone injections for this gentleman any longer because I think he is at too high risk for having complications such as infection from the cortisone shot itself. Currently with urosepsis that would be contraindicated. I have recommended aspirating the knee just to make sure that he does not have a septic arthritis currently. His clinical picture is not consistent with that but in a diabetic with neuropathy the inflammatory and pain manifestations respectively can
[2020-02-28 16:36] LABS: Glucose Point of Care 196 (65-105)
[2020-02-28] MEDS: SODIUM CHLORIDE 0.9% IV 250 ML 30 ML IV CONT (17:13)
[2020-02-28 17:51] LABS: Crystals Synovial Fluid None Seen (None Seen)
[2020-02-28 18:20] LABS: Source Synovial Fluid Synovial fluid
[2020-02-28 18:21] LABS: Appearance Synovial Fluid Hazy (Clear); Color Synovial Fluid Yellow (Colorless)
[2020-02-28 18:22] LABS: Lymphocytes Synovial Fluid 34 %; Macrophages Synovial Fluid 8 %; Monocytes Synovial Fluid 40 %; Neutrophils Synovial Fluid 18 % (0-25)
[2020-02-28 21:34] LABS: Hematocrit 27.2 % (42.0-52.0)
[2020-02-28 22:14] LABS: Iron 71 ug/dL (49-181)
[2020-02-28 22:23] LABS: Percent Iron Saturation 35 % (20-50)
[2020-02-28 23:45] LABS: Glucose Point of Care 188 (65-105)
[2020-02-29] VITALS (11 sets, daily range): BP systolic 122–141; BP diastolic 61–76; PULSE 90–104; RESP 18–21; TEMP 36.6–38.8; O2SAT 94–97
[2020-02-29] MEDS: ACETAMINOPHEN 325 MG TABLET 650 MG PO ×2 (01:12→05:24)
[2020-02-29] MEDS: NEOMYCIN/POLYMYXIN/DEXAMETH OP SUSP 5 ML BTL 1 DROP EACH EYE ×6 (01:13→20:56)
[2020-02-29] MEDS: hydrALAZINE HCL 50 MG TABLET 100 MG PO ×3 (05:26→21:00)
[2020-02-29] MEDS: ISOSORBIDE DINITRATE 20 MG TABLET PO ×3 (05:26→21:00)
[2020-02-29 06:16] LABS: Anion Gap 10 mmol/L (8-16); Blood Urea Nitrogen 45 mg/dL (9-20); Calcium 8.7 mg/dL (8.4-10.2); Carbon Dioxide 29 mmol/L (22-30); Chloride 98 mmol/L (98-107); Estimated CRCL calculation 74 ml/min; Estimated Glomerular Filt Rate 52; Glucose 82 mg/dL (75-110); Magnesium 1.7 mg/dL (1.6-2.3); Potassium 3.8 mmol/L (3.4-5.0); Sodium 137 mmol/L (137-145)
[2020-02-29 06:19] LABS: Basophils Percent Auto 0.4 % (0.2-1.2); Eosinophils Absolute Auto 0.3 K/mm3 (0-0.3); Hematocrit 26.6 % (42.0-52.0); Hemoglobin 8.7 g/dL (14.0-18.0); Immature Granulocyte Absolute 0.13 K/mm3 (0.00-0.031); Immature Granulocyte Percent A 1.5 % (0-0.5); Lymphocytes Absolute Auto 1.13 K/mm3 (0.9-3.2); Lymphocytes Percent Auto 13.3 % (18.3-44.2); Mean Corpuscular HGB Conc 32.7 g/dl (32-36); Mean Corpuscular Hemoglobin 28.5 pg (26-34); Mean Corpuscular Volume 87.2 fl (80-100); Mean Platelet Volume 11.8 fl (7.4-10.4); Monocytes Absolute Auto 1.1 K/mm3 (0.1-0.6); Monocytes Percent Auto 12.6 % (2.6-8.5); Neutrophils Absolute Auto 5.8 K/mm3 (1.3-6.7); Neutrophils Percent Auto 68.2 % (45.5-73.1); Nucleated Red Blood Cells Perc 0.2 % (0.0-0.2); Platelet Count Result 243 k/mm3 (150-375); Red Blood Count 3.05 M/mm3 (4.6-6.20); Red Cell Distribution Width 15.2 % (11.5-14.5); White Blood Count 8.5 K/mm3 (4.5-10.0)
[2020-02-29 07:32] LABS: Folic Acid 8.2 ng/mL (2.76->20)
[2020-02-29] MEDS: CHOLECALCIFEROL 1,000 UNIT TABLET 5000 UNITS PO (08:31)
[2020-02-29] MEDS: ATORVASTATIN 40 MG TABLET 80 MG PO (08:32)
[2020-02-29] MEDS: LORATADINE 10 MG TABLET PO (08:32)
[2020-02-29] MEDS: ACIDOPHILUS/BULGARICUS CHEWABLE TABLET 1 TABLET PO (08:32)
[2020-02-29] MEDS: FAMOTIDINE 20 MG TABLET PO ×2 (08:32→20:57)
[2020-02-29] MEDS: TORSEMIDE 20 MG TABLET 40 MG PO ×2 (08:32→18:05)
[2020-02-29] MEDS: MAGNESIUM OXIDE 200 MG TABLET PO ×2 (08:32→20:56)
[2020-02-29] MEDS: EZETIMIBE 10 MG TABLET PO (08:32)
[2020-02-29] MEDS: carvediloL 25 MG TABLET PO (08:33)
[2020-02-29] MEDS: TAMSULOSIN HCL 0.4 MG CAPSULE PO (08:33)
[2020-02-29] MEDS: FERROUS SULFATE 324 MG TABLET PO (08:33)
[2020-02-29] MEDS: ENOXAPARIN 40 MG/0.4 ML SYRINGE SUB-Q (08:33)
[2020-02-29] MEDS: polyethylene glycoL 3350 17 GM POWD.PACK PO (08:33)
[2020-02-29] MEDS: PREGABALIN 50 MG CAPSULE 100 MG PO ×2 (08:45→13:08)
[2020-02-29 08:59] LABS: Glucose Point of Care 77 (65-105)
--- NOTE | 2020-02-29 10:55 | PM.PNORT ---
Progress Note: A&P Additional Plan Unfortunately lab did not do cell with diff or cyrstals, cx have been done. knee is feeling much better today, overall pt is feeling better, will wait untill cx results are done on knee, will cont to follow Subjective Subjective Date/Time Seen: 02/29/20 10:55 Objective Data Vital Signs Vital Signs: Vital Signs - 24 hr 02/28/20 11:20 02/28/20 11:36 02/28/20 12:20 Temperature 38.1 C H 38.1 C H 36.9 C Pulse Rate 97 102 H Respiratory Rate 18 18 Blood Pressure 147/84 H 121/56 L Pulse Oximetry 96 95 02/28/20 12:36 02/28/20 12:45 02/28/20 17:09 Temperature 36.8 C 36.4 C L 37.0 C Pulse Rate 100 100 Respiratory Rate 20 20 Blood Pressure 144/64 H 117/53 L Pulse Oximetry 93 95 02/28/20 17:25 02/28/20 18:11 02/28/20 18:25 Temperature 36.5 C 36.5 C 36.3 C L Pulse Rate 94 92 Respiratory Rate 20 20 Blood Pressure 123/66 124/59 L Pulse Oximetry 94 95 02/28/20 19:25 02/28/20 20:25 02/28/20 22:00 Temperature 36.8 C 36.7 C 36.7 C Pulse Rate 87 90 90 Respiratory Rate 18 20 20 Blood Pressure 123/73 124/67 124/67 Pulse Oximetry 96 99 99 02/28/20 23:01 02/29/20 01:10 02/29/20 01:12 Temperature 38.8 C H 38.4 C H Pulse Rate 101 H Respiratory Rate 21 H Blood Pressure Pulse Oximetry 92 02/29/20 02:10 02/29/20 05:01 02/29/20 06:00 Temperature 37.9 C H 36.6 C Pulse Rate 104 H 99 Respiratory Rate 18 18 Blood Pressure 141/74 H Pulse Oximetry 94 96 02/29/20 08:33 02/29/20 10:00 Temperature 37.1 C Pulse Rate 99 Respiratory Rate Blood Pressure Pulse Oximetry Intake/Output Intake/Output: Intake & Output 02/26/20 02/27/20 02/28/20 02/29/20 23:59 23:59 23:59 23:59 Intake Total 2100 3040 3168 1310 Output Total 2049 7424 3056 2500 Balance 50 1090 109 -1190 Meds/Results Medications: Active Medications Generic Name Dose Route Start Last Admin Trade Name Freq PRN Reason Stop Dose Admin Acetaminophen 650 mg 02/25/20 11:59 02/29/20 05:24 Tylenol Tablet PO 650 mg Q4H PRN Administration Mild Pain (1-3) or Fever Atorvastatin Calcium 80 mg 02/26/20 09:00 02/29/20 08:32 Lipitor PO 80 mg DAILY VERONICA Administration Carvedilol 25 mg 02/26/20 09:00 02/29/20 08:33 Coreg PO 25 mg DAILY VERONICA Administration Dextrose 12.5 gm 02/25/20 18:42 Dextrose 50% Syringe IV PUSH PRN PRN Hypoglycemia Protocol Ezetimibe 10 mg 02/26/20 09:00 02/29/20 08:32 Zetia PO 10 mg DAILY VERONICA Administration Enoxaparin Sodium 40 mg 02/26/20 09:00 02/29/20 08:33 Lovenox SUB-Q 40 mg DAILY VERONICA Administration Famotidine 20 mg 02/26/20 11:40 02/29/20 08:32 Pepcid PO 20 mg Q12HR VERONICA Administration Ferrous Sulfate 324 mg 02/28/20 11:05 02/29/20 08:33 Ferrous Sulfate PO 324 mg DAILY VERONICA Administration Glucagon 1 mg 02/25/20 18:42 Glucagon For Inj IM PRN PRN Hypoglycemia Protocol Glucose 15 gm 02/25/20 18:42 Glutose 15 PO PRN PRN Hypoglycemia Protocol Hydralazine HCl 100 mg 02/25/20 22:00 02/29/20 05:26 Apresoline Tablet PO 100 mg Q8HR VERONICA Administration Hydralazine HCl 10 mg 02/28/20 07:39 Apresoline Hcl Inj IV PUSH Q8H PRN Blood Pressure - High Ceftriaxone Sodium/Dextrose 1 gm in 50 mls @ 100 mls/hr 02/25/20 12:00 02/28/20 12:59 Rocephin 1 Gm/D5w 50 Ml IVPB 100 mls/hr Q24H VERONICA Administration Dextrose 1,000 mls @ 100 mls/hr 02/25/20 18:42 Dextrose 5% 1,000 Ml IVPB PRN PRN Hypoglycemia Protocol Insulin Human Regular 0 each 02/25/20 16:33 02/27/20 11:22 Home Medication Insulin SUB-Q 1.2 each PRN PRN Administration per home instructions Insulin Human Regular 0 each 02/25/20 22:00 02/27/20 20:51 Home Medication Insulin XX Not Given Q8HR [facility] Isosorbide Dinitrate 20 mg 02/25/20 22:00 02/29/20 05:26 Isordil PO 20 mg Q8HR VERONICA A
--- NOTE | 2020-02-29 13:43 | PM.IMPN ---
Progress Note: A&P Assessment and Plan (1) Anemia: Qualifiers: Anemia type: iron deficiency Iron deficiency anemia type: unspecified iron deficiency Qualified Code(s): D50.9 - Iron deficiency anemia, unspecified Code(s): D64.9 - Anemia, unspecified Status: Acute Assessment and Plan: Acute on chronic. May be related to acute infection in the setting of known chronic iron deficiency anemia. Hgb 6.8 yesterday and received 2 units packed RBC; impved to 8.5 today. No evidence of acute bleeding. Monitor H&H. (2) UTI (urinary tract infection): Qualifiers: Hematuria presence: without hematuria Urinary tract infection type: acute cystitis Qualified Code(s): N30.00 - Acute cystitis without hematuria Code(s): N39.0 - Urinary tract infection, site not specified Status: Acute Assessment and Plan: Patient presented due to fever and urinary hesitancy, urgency, and frequency. He noted he has seen urologist, Dr Jamil, in the past. Continue IV ceftriaxone (day 5); urine culture growing Klebsiella, blood cultures are pending with no growth to date. (3) Urinary retention: Code(s): R33.9 - Retention of urine, unspecified Status: Acute Assessment and Plan: May be related to acute UTI vs. BPH vs. both. Started flomax. Failed voiding trials. He has a urologist at [place], Dr Jamil. I feel it is most appropriate to have him follow up with his established urologist after discharge with whom he has an appointment scheduled for 03/05. Anticipate discharge with Reynolds catheter. (4) Sepsis: Qualifiers: Sepsis acute organ dysfunction status: unspecified Sepsis type: sepsis due to unspecified organism Qualified Code(s): A41.9 - Sepsis, unspecified organism Code(s): A41.9 - Sepsis, unspecified organism Status: Acute Assessment and Plan: Present on admission and supported by fever, tachycardia, leukocytosis, and elevated lactic acid level; suspected source is urinary. Chest CT shows mild atelectasis. Dr Reyna has evaluated his left knee and it was aspirated yesterday; awaiting fluid culture prior to discharge. Monitor urine output and vital signs. Febrile this morning. (5) Insulin dependent diabetes mellitus: Status: Chronic Assessment and Plan: Continue insulin pump; monitor with accu-cheks and adjust treatment as needed. (6) Chronic obstructive pulmonary disease: Qualifiers: COPD type: unspecified COPD Qualified Code(s): J44.9 - Chronic obstructive pulmonary disease, unspecified Code(s): J44.9 - Chronic obstructive pulmonary disease, unspecified Status: Chronic Assessment and Plan: Continue inhalers. No respiratory distress. Will monitor. Add incentive spirometer given the atelectasis. (7) Chronic kidney disease: Qualifiers: Chronic kidney disease stage: stage 3 (moderate) Qualified Code(s): N18.3 - Chronic kidney disease, stage 3 (moderate) Code(s): N18.9 - Chronic kidney disease, unspecified Status: Chronic Assessment and Plan: His creatinine varies as well as his fluid status. He received IV fluid rehydration emergency department due to lactic acidosis. His torsemide has been resumed given significant swelling. His benefits sales consultant is Dr Annette Loco at [facility]. (8) Congestive heart failure: Qualifiers: Heart failure type: unspecified Heart failure chronicity: unspecified Qualified Code(s): I50.9 - Heart failure, unspecified Code(s): I50.9 - Heart failure, unspecified Status: Chronic Assessment and Plan: Chest x-ray showed ate
[2020-02-29] MEDS: oxyCODONE/ACETAMINOPHEN 5-325 MG TABLET 1 TABLET PO ×2 (14:43→23:24)
--- NOTE | 2020-02-29 15:28 | PCPTNOTE ---
RN notified of patient experiencing pain this AM during Physical Therapy.
[2020-02-29 16:26] LABS: Glucose Point of Care 178 (65-105)
[2020-02-29 16:38] LABS: Glucose Point of Care 114 (65-105)
--- NOTE | 2020-02-29 19:19 | PC.NURSE ---
Patient managed own blood sugar via his personal insulin pump. Patient monitors own blood sugar with home monitor and we also check his blood sugar with our meter. Patient has signed the agreement and fills out the patient insulin pump worksheet.
[2020-02-29] MEDS: PREGABALIN 50 MG CAPSULE 200 MG PO (20:57)
[2020-02-29 21:35] LABS: Glucose Point of Care 162 (65-105)
[2020-03-01] MEDS: NEOMYCIN/POLYMYXIN/DEXAMETH OP SUSP 5 ML BTL 1 DROP EACH EYE ×4 (00:28→12:23)
[2020-03-01 04:35] VITALS: PULSE 87; RESP 14; O2SAT 95
[2020-03-01] MEDS: ISOSORBIDE DINITRATE 20 MG TABLET PO ×2 (05:40→13:43)
[2020-03-01] MEDS: hydrALAZINE HCL 50 MG TABLET 100 MG PO ×2 (05:40→13:43)
[2020-03-01 05:42] LABS: Hematocrit 26.8 % (42.0-52.0); Hemoglobin 8.8 g/dL (14.0-18.0); Mean Corpuscular HGB Conc 32.8 g/dl (32-36); Mean Corpuscular Hemoglobin 28.9 pg (26-34); Mean Corpuscular Volume 88.2 fl (80-100); Mean Platelet Volume 11.4 fl (7.4-10.4); Platelet Count Result 267 k/mm3 (150-375); Red Blood Count 3.04 M/mm3 (4.6-6.20); Red Cell Distribution Width 15.7 % (11.5-14.5); White Blood Count 8.7 K/mm3 (4.5-10.0)
[2020-03-01 06:00] VITALS: BP 117/69; PULSE 87; RESP 20; TEMP 36.2; O2SAT 98
[2020-03-01 06:07] LABS: Anion Gap 8 mmol/L (8-16); Blood Urea Nitrogen 44 mg/dL (9-20); Calcium 8.7 mg/dL (8.4-10.2); Carbon Dioxide 31 mmol/L (22-30); Chloride 99 mmol/L (98-107); Estimated CRCL calculation 78 ml/min; Estimated Glomerular Filt Rate 56; Glucose 80 mg/dL (75-110); Magnesium 1.9 mg/dL (1.6-2.3); Potassium 3.6 mmol/L (3.4-5.0); Sodium 138 mmol/L (137-145)
[2020-03-01] MEDS: MAGNESIUM OXIDE 200 MG TABLET PO (08:01)
[2020-03-01] MEDS: EZETIMIBE 10 MG TABLET PO (08:01)
[2020-03-01] MEDS: FAMOTIDINE 20 MG TABLET PO (08:01)
[2020-03-01] MEDS: TORSEMIDE 20 MG TABLET 40 MG PO (08:02)
[2020-03-01] MEDS: ACIDOPHILUS/BULGARICUS CHEWABLE TABLET 1 TABLET PO (08:02)
[2020-03-01] MEDS: CHOLECALCIFEROL 1,000 UNIT TABLET 5000 UNITS PO (08:02)
[2020-03-01 08:03] VITALS: PULSE 87
[2020-03-01] MEDS: LORATADINE 10 MG TABLET PO (08:03)
[2020-03-01] MEDS: TAMSULOSIN HCL 0.4 MG CAPSULE PO (08:03)
[2020-03-01] MEDS: polyethylene glycoL 3350 17 GM POWD.PACK PO (08:03)
[2020-03-01] MEDS: FERROUS SULFATE 324 MG TABLET PO (08:03)
[2020-03-01] MEDS: ENOXAPARIN 40 MG/0.4 ML SYRINGE SUB-Q (08:03)
[2020-03-01] MEDS: carvediloL 25 MG TABLET PO (08:03)
[2020-03-01] MEDS: ATORVASTATIN 40 MG TABLET 80 MG PO (08:03)
[2020-03-01] MEDS: PREGABALIN 50 MG CAPSULE 100 MG PO ×2 (08:19→12:29)
[2020-03-01 09:40] LABS: Glucose Point of Care 81 (65-105)
--- NOTE | 2020-03-01 10:11 | PM.PNORT ---
Progress Note: A&P Additional Plan Cultures No Growth thus far. Subjective Subjective Date/Time Seen: 03/01/20 10:11 Objective Data Vital Signs Vital Signs: Vital Signs - 24 hr 02/29/20 13:07 02/29/20 14:00 02/29/20 22:00 Temperature 37.1 C 37.0 C Pulse Rate 95 93 94 Respiratory Rate 18 18 Blood Pressure 125/76 131/76 122/61 Pulse Oximetry 97 97 96 02/29/20 23:08 03/01/20 04:35 03/01/20 06:00 Temperature 36.2 C L Pulse Rate 90 87 87 Respiratory Rate 21 H 14 20 Blood Pressure 117/69 Pulse Oximetry 97 95 98 03/01/20 08:03 Temperature Pulse Rate 87 Respiratory Rate Blood Pressure Pulse Oximetry Intake/Output Intake/Output: Intake & Output 02/27/20 02/28/20 02/29/20 03/01/20 23:59 23:59 23:59 23:59 Intake Total 3040 3568 2240 1090 Output Total 1950 3059 4500 1400 Balance 1090 225 -2260 -310 Meds/Results Medications: Active Medications Generic Name Dose Route Start Last Admin Trade Name Freq PRN Reason Stop Dose Admin Acetaminophen 650 mg 02/25/20 11:59 02/29/20 05:24 Tylenol Tablet PO 650 mg Q4H PRN Administration Mild Pain (1-3) or Fever Atorvastatin Calcium 80 mg 02/26/20 09:00 03/01/20 08:03 Lipitor PO 80 mg DAILY VERONICA Administration Carvedilol 25 mg 02/26/20 09:00 03/01/20 08:03 Coreg PO 25 mg DAILY VERONICA Administration Dextrose 12.5 gm 02/25/20 18:42 Dextrose 50% Syringe IV PUSH PRN PRN Hypoglycemia Protocol Ezetimibe 10 mg 02/26/20 09:00 03/01/20 08:01 Zetia PO 10 mg DAILY VERONICA Administration Enoxaparin Sodium 40 mg 02/26/20 09:00 03/01/20 08:03 Lovenox SUB-Q 40 mg DAILY VERONICA Administration Famotidine 20 mg 02/26/20 11:40 03/01/20 08:01 Pepcid PO 20 mg Q12HR VERONICA Administration Ferrous Sulfate 324 mg 02/28/20 11:05 03/01/20 08:03 Ferrous Sulfate PO 324 mg DAILY VERONICA Administration Glucagon 1 mg 02/25/20 18:42 Glucagon For Inj IM PRN PRN Hypoglycemia Protocol Glucose 15 gm 02/25/20 18:42 Glutose 15 PO PRN PRN Hypoglycemia Protocol Hydralazine HCl 100 mg 02/25/20 22:00 03/01/20 05:40 Apresoline Tablet PO 100 mg Q8HR VERONICA Administration Hydralazine HCl 10 mg 02/28/20 07:39 Apresoline Hcl Inj IV PUSH Q8H PRN Blood Pressure - High Ceftriaxone Sodium/Dextrose 1 gm in 50 mls @ 100 mls/hr 02/25/20 12:00 02/29/20 12:48 Rocephin 1 Gm/D5w 50 Ml IVPB Infused Q24H VERONICA Infusion Dextrose 1,000 mls @ 100 mls/hr 02/25/20 18:42 Dextrose 5% 1,000 Ml IVPB PRN PRN Hypoglycemia Protocol Insulin Human Regular 0 each 02/25/20 16:33 02/27/20 11:22 Home Medication Insulin SUB-Q 1.2 each PRN PRN Administration per home instructions Isosorbide Dinitrate 20 mg 02/25/20 22:00 03/01/20 05:40 Isordil PO 20 mg Q8HR VERONICA Administration Lactobacillus Acidophilus 1 tablet 02/26/20 09:00 03/01/20 08:02 Lactinex Chewable Tablet PO 1 tablet DAILY VERONICA Administration Loratadine 10 mg 02/26/20 09:00 03/01/20 08:03 Claritin PO 10 mg DAILY VERONICA Administration Magnesium Oxide 200 mg 02/28/20 09:00 03/01/20 08:01 Mag-Ox PO 200 mg Q12HR VERONICA Administration Neomycin/Polymyxin/Dexamethasone 1 drop 02/26/20 18:30 03/01/20 08:03 Maxitrol EACH EYE 1 drop Q4HR VERONICA Administration Ondansetron HCl 4 mg 02/25/20 11:59 02/27/20 10:36 Zofran Inj IV PUSH 4 mg Q4H PRN Administration Nausea Oxycodone/Acetaminophen 1 tablet 02/27/20 18:44 02/29/20 23:24 Percocet 5-325 Mg PO 1 tablet Q6H PRN Administration Pain Rated 6 or Greater Polyethylene Glycol 17 gm 02/26/20 11:45 03/01/20 08:03 Miralax PO 17 gm QAM VERONICA Administration Pregabalin 100 mg 03/01/20 08:00 03/01/20 08:19 Lyrica PO 100 mg 0800,1200 VERONICA Administration Pregabalin 200 mg 02/29/20 21:00 02/29/20 20:57 Lyrica PO 200 mg
[2020-03-01 11:50] LABS: Glucose Point of Care 221 (65-105)
[2020-03-01 13:45] VITALS: BP 147/75; PULSE 95
[2020-03-01 14:00] VITALS: BP 108/68; PULSE 95; RESP 16; TEMP 36.4; O2SAT 99
--- NOTE | 2020-03-01 14:33 | PM.DS ---
DS: Admitting Diagnosis Admitting Diagnosis Admitting Diagnosis: Fever, urinary symptoms. DS: Discharge Diagnosis Discharge Diagnosis (1) Anemia: Qualifiers: Anemia type: iron deficiency Iron deficiency anemia type: unspecified iron deficiency Qualified Code(s): D50.9 - Iron deficiency anemia, unspecified Code(s): D64.9 - Anemia, unspecified Status: Acute Assessment and Plan: Date of Service 03/01/20: Mr. Sanchez is a pleasant 49yo M with history of hypertension, insulin-dependent type 2 diabetes mellitus, combined systolic and diastolic congestive heart failure, chronic kidney disease, COPD, obesity and obstructive sleep apnea who presented to the ER from home for evaluation of fever and urinary symptoms that included retention, hesitancy, and frequency. He noted having a history of urinary tract infections. Urine retention was noted and Reynolds catheter was placed. Urine culture grew Klebsiella pneumoniae and he was treated with IV ceftriaxone, discharged with oral cefdinir to complete the course based on sensitivity report and allergies. He was noted to have acute on chronic iron deficiency anemia in the setting of acute infection. Hgb was as low as 6.8 on 02/27 at which time he received 2 units packed RBC transfusion. Hgb was low but stable at 8.8 on day of discharge. No evidence of acute bleeding. He was instructed to continue taking his oral iron supplementation and repeat blood work in 1 week. He was noted to have lower extremity swelling. He was recently diagnosed with CHF during a hospitalization at [place] December 2019 and has been dealing with swelling since then. He was maintained on his oral torsemide; some days during this admission his dose was doubled due to swelling and he tolerated this well. His fluid status is labile and difficult to control given his concomitant renal failure. Cr was 2.2 on arrival and 1.6 day of discharge. His airplane electrical repairer and quality assurance advisor are at [place]. Voiding trial was attempted prior to discharge and he continued to experience retention, thus he was discharged with Reynolds catheter intact. His urologist is also at [place] and his has scheduled him a follow up appointment with him 03/05 for follow up of UTI and retention. He was started on Flomax here. Prostate mildly enlarged by evidence of CT. He is noted to have degenerative joint disease of PETE knees for which he has seen Dr Reyna in the past. Mr Sanchez was experiencing left knee pain during this stay. XR showed severe arthritic changes of left knee. Dr Reyna was able to see him while hospitalized and he underwent aspiration of small effusion of this left knee. Preliminary culture of this aspirated fluid shows no organisms, no crystals. He has been educated that he will benefit from weight loss. He worked with PT/OT and walked 80' contact guard assist on day of discharge; home health was arranged to continue therapy. He uses an insulin pump. Blood sugars were stable here aside from one low blood sugar in the morning before breakfast which corrected after he ate. He was hemodynamically stable for discharge 03/01/20 with instructions to follow up with his PCP, and his specialists at [place] to include his airplane electrical repairer, quality assurance advisor, and urologist; as well as Dr Reyna. (2) UTI (urinary tract infection): Qualifiers: Hematuria presence: without hematuria Urinary tract infection type: acute cystitis Qualified Code(s): N30.00 - Acute cystitis without hematuria Code(s): N39.0 - Urinary tract infection, site not specified Status: Acute Assessment and Plan: Treated with IV ceftriaxone, discharged with oral cefdinir. Follow up with his established urologist. (3) Urinary retention: Code(s): R33.9 - Retention of urine, unspecified Status: Acute Assessment and Plan: May be related to acute UTI vs. BPH
--- NOTE | 2020-03-17 10:54 | PC.NURSE ---
Knee culture with no growth.
== END 2020-03-01 15:48 | disposition home health service (06) | DRG 872 ==
LOC: ANHED 12:03 → ANH2MED 13:51
PROVIDERS: Physician Assistant; Physician Assistant Surgical; Admitting Provider Family Medicine; Emergency Provider Emergency Medicine; PCP Family Medicine; Visit Provider Physician Assistant
DX: A41.9 Sepsis, unspecified organism (principal); N39.0 Urinary tract infection, site not specified; I13.0 Hypertensive heart and chronic kidney disease with heart failure and stage 1 through stage 4 chronic kidney disease, or unspecified chronic kidney disease; I50.42 Chronic combined systolic (congestive) and diastolic (congestive) heart failure; Z68.43 Body mass index [BMI] 50.0-59.9, adult; D50.8 Other iron deficiency anemias; N18.3 Chronic kidney disease, stage 3 (moderate); B96.1 Klebsiella pneumoniae [K. pneumoniae] as the cause of diseases classified elsewhere; M17.12 Unilateral primary osteoarthritis, left knee; J44.9 Chronic obstructive pulmonary disease, unspecified; G47.33 Obstructive sleep apnea (adult) (pediatric); E11.22 Type 2 diabetes mellitus with diabetic chronic kidney disease; M17.0 Bilateral primary osteoarthritis of knee; N40.1 Benign prostatic hyperplasia with lower urinary tract symptoms; R33.9 Retention of urine, unspecified; E66.01 Morbid (severe) obesity due to excess calories; E78.5 Hyperlipidemia, unspecified; E11.42 Type 2 diabetes mellitus with diabetic polyneuropathy; D50.9 Iron deficiency anemia, unspecified
CPT/HCPCS: 20611; 36415; 36430; 51701; 71045; 71250; 72100; 73502; 73562; 74176; 80048; 80053; 81001; 82607; 82728; 82746; 83036; 83540; 83550; 83605; 83735; 83880; 85014; 85018; 85025; 85027; 85610; 85652; 85730; 86140; 86850; 86900; 86901; 86923; 87040; 87070; 87075; 87077; 87086; 87088; 87186; 87205; 89051; 89060; 93005; 93970; 96365; 96375; 97110; 97116; 97161; 97165; 97530; 99285; A9270; J0131; J0692; J0696; J1650; J2405; J3370; J3475; J7030; J7050; P9016

== ENCOUNTER 2020-05-18 07:44 | Outpatient (CLI) | payer BC, SELFPAY ==
--- NOTE | ~2020-05-18 | NM_ITS ---
EXAM: NM gastric emptying study DATE: 05/18/2020 13:29 INDICATION: Gastrointestinal pain. Belching. TECHNIQUE: A gastric emptying study was performed using the methodology of David LEYVA, et al. J Nucl Med 2007; 48:568-572. The patient was given a meal consisting of 2 scrambled eggs labeled with 1 mCi Tc-99m sulfur colloid, 2 slices of toast, two packages of jam, and approximately 120 mL of water. Si multaneous anterior and posterior 1-min images of the abdomen were obtained with the patient supine a t multiple time points over a total period of 4 hours. The geometric mean of anterior and posterior v iews was determined, and the percentage retention was calculated for each time point. COMPARISON: None. FINDINGS: Gastric retention of the radiotracer-labeled meal was 46%, 35%, and 4% at the 1-hour, 2-hour, and 4-h our time points, respectively. With this technique, apparent rapid gastric emptying is suggested by < 30% gastric retention at 1 hour. Delayed gastric emptying is defined by gastric retention of >90% at 1 hour, >60% retention at 2 hours, or >10% retention at 4 hours. IMPRESSION: 1. Normal gastric emptying. Reviewed, dictated and finalized at location A. ING SUPERVISOR IMPRESSION: 1. Normal gastric emptying.
== END 2020-05-18 07:45 | disposition home or self-care (01) ==
PROVIDERS: PCP Family Medicine; Visit Provider Internal Medicine Gastroenterology
DX: R14.2 Eructation (principal)
CPT/HCPCS: 78264; A9541

== ENCOUNTER 2020-06-01 02:25 | Outpatient (CLI) | payer BC, SELFPAY ==
[2020-06-01 21:22] LABS: SARS-CoV-2 RNA PCR Positive
== END 2020-06-01 02:26 | disposition home or self-care (01) ==
LOC: ANHCOVIDDT 02:26
PROVIDERS: PCP Family Medicine; Visit Provider Internal Medicine Gastroenterology
DX: U07.1 COVID-19 (principal)
CPT/HCPCS: 87635; C9803; U0003

== ENCOUNTER 2020-06-20 00:52 | Outpatient (CLI) | payer BC, SELFPAY ==
[2020-06-20 19:14] LABS: SARS-CoV-2 RNA PCR Positive
== END 2020-06-20 00:53 | disposition home or self-care (01) ==
LOC: ANHCOVIDDT 00:52
PROVIDERS: PCP Family Medicine; Visit Provider Internal Medicine Gastroenterology
DX: U07.1 COVID-19 (principal)
CPT/HCPCS: 87635; C9803; U0003

== ENCOUNTER 2020-06-24 00:52 | Day surgery (SDC) | payer BC, SELFPAY ==
[2020-05-28 12:09] VITALS: BMI 51.2
--- NOTE | 2020-06-03 07:07 | SUR.PREOP ---
0705 Spoke with patient's Tegan regarding patient's Covid test. Tegan called and left a message on my phone last night regarding several family members in his house testing positive and them wanting to know what Clifton's Covid test result was. Discussed with Tegan Lazo's Covid test results which were positive. An attempt was made to reach Clifton on his cell, unable to reach him due to him still being asleep per his . Discussed with spouse to have Clifton call me if he had any questions. Discussed the patient following up with his primary landcare officer if symptoms persisted or worsened. stated he just has a cough and they thought it was his bronchitis that he gets this time of year. Also discussed him following up with Dr. Vasques's office in a couple of weeks when he was symptom free to get his procedure rescheduled. Spouse voiced understanding. I enforced the spouse to have the patient call if he had any further questions.
--- NOTE | 2020-06-16 09:21 | PC.NURSE ---
TESTED POSITIVE FOR COVID ON 06/02/2020. STATES NOW NOT HAVING ANY SYMPTOMS. SOLANGE SANTOS
[2020-06-24 09:57] VITALS: BP 159/76; PULSE 88; RESP 18; TEMP 36.3; O2SAT 100
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
[2020-06-24 10:29] LABS: Glucose Point of Care 82 (65-105)
[2020-06-24] MEDS: LACTATED RINGERS 1,000 ML 150 ML IV CONT (10:38)
[2020-06-24] MEDS: BENZOCAINE (*SP) 60 ML SPRAY CAN (HURRICAINE) 1 SPRAY MUCOUS MEM (10:49)
[2020-06-24 11:15] VITALS: BP 134/79; PULSE 86; RESP 21; O2SAT 100
[2020-06-24 11:25] VITALS: BP 155/99; PULSE 87; RESP 20; O2SAT 100
[2020-06-24 11:25] LABS: Glucose Point of Care 85 (65-105)
[2020-06-24 11:35] VITALS: BP 155/74; PULSE 86; RESP 17; O2SAT 100
== END 2020-06-24 12:03 | disposition home or self-care (01) ==
PROVIDERS: PCP Family Medicine; Visit Provider Internal Medicine Gastroenterology
PROC: 0DJ08ZZ Inspection of Upper Intestinal Tract, Via Natural or Artificial Opening Endoscopic (ICD-10-PCS; CPT 43235; principal; 2020-06-24 11:30)
DX: Z12.11 Encounter for screening for malignant neoplasm of colon (principal); K64.8 Other hemorrhoids; Z83.71 Family history of colonic polyps; R14.2 Eructation; J44.9 Chronic obstructive pulmonary disease, unspecified; I13.0 Hypertensive heart and chronic kidney disease with heart failure and stage 1 through stage 4 chronic kidney disease, or unspecified chronic kidney disease; I50.9 Heart failure, unspecified; N18.30 Chronic kidney disease, stage 3 unspecified; E11.22 Type 2 diabetes mellitus with diabetic chronic kidney disease; E78.5 Hyperlipidemia, unspecified; E11.42 Type 2 diabetes mellitus with diabetic polyneuropathy; E66.01 Morbid (severe) obesity due to excess calories; Z68.43 Body mass index [BMI] 50.0-59.9, adult; Z79.4 Long term (current) use of insulin; G47.33 Obstructive sleep apnea (adult) (pediatric)
CPT/HCPCS: 45378; 43235; J2704; J7120

== ENCOUNTER → 2021-02-23 02:33 | Outpatient (CLI) | payer BC, SELFPAY ==
[2021-02-24 15:33] LABS: SARS-CoV-2 RNA PCR Negative
== END ==
PROVIDERS: PCP Family Medicine; Visit Provider Nurse Practitioner Adult Health
DX: R09.81 Nasal congestion (principal)
CPT/HCPCS: C9803; U0003; U0005

== ENCOUNTER → 2021-04-26 04:16 | Outpatient (CLI) | payer BC, SELFPAY ==
[2021-04-26 20:20] LABS: SARS-CoV-2 RNA PCR Negative
== END ==
PROVIDERS: PCP Family Medicine; Visit Provider Family Medicine
DX: R68.89 Other general symptoms and signs (principal); Z20.822 Contact with and (suspected) exposure to COVID-19
CPT/HCPCS: C9803; U0003; U0005

== ENCOUNTER → 2021-06-28 03:04 | Outpatient (CLI) | payer BC, SELFPAY ==
[2021-06-28 19:25] LABS: SARS-CoV-2 RNA PCR Negative
== END ==
PROVIDERS: PCP Family Medicine; Visit Provider Family Medicine
DX: Z01.89 Encounter for other specified special examinations (principal); Z20.822 Contact with and (suspected) exposure to COVID-19
CPT/HCPCS: C9803; U0003; U0005

== ENCOUNTER 2021-12-08 09:56 | Emergency (ER) | payer BC, SELFPAY ==
[2021-12-08] VITALS (17 sets, daily range): BP systolic 109–194; BP diastolic 85–100; PULSE 84–97; RESP 13–31; TEMP 35.7–36.6; O2SAT 97–100
[2021-12-08 10:06] LABS: Glucose Point of Care 142 mg/dl (65-105)
[2021-12-08 10:38] LABS: Basophils Percent Auto 0.2 % (0.2-1.2); Eosinophils Absolute Auto 0.1 K/mm3 (0-0.3); Eosinophils Percent Auto 0.9 % (0-4.4); Hematocrit 34.7 % (42.0-52.0); Hemoglobin 10.6 g/dL (14.0-18.0); Immature Granulocyte Absolute 0.05 K/mm3 (0.00-0.031); Immature Granulocyte Percent A 0.4 % (0-0.5); Lymphocytes Absolute Auto 1.51 K/mm3 (0.9-3.2); Lymphocytes Percent Auto 12.5 % (18.3-44.2); Mean Corpuscular HGB Conc 30.5 g/dl (32-36); Mean Corpuscular Hemoglobin 28.7 pg (26-34); Mean Platelet Volume 10.9 fl (7.4-10.4); Monocytes Absolute Auto 0.6 K/mm3 (0.1-0.6); Neutrophils Absolute Auto 9.8 K/mm3 (1.3-6.7); Platelet Count Result 301 k/mm3 (150-375); Red Blood Count 3.69 M/mm3 (4.6-6.20); Red Cell Distribution Width 17.2 % (11.5-14.5); White Blood Count 12.1 K/mm3 (4.5-10.0)
--- NOTE | 2021-12-08 10:39 | ED.RECABL ---
HPI - Recheck/Abnormal Lab/Rx General Chief Complaint: Recheck/Abnormal Lab/Rx Stated Complaint: low blood sugar Time Seen by Provider: 12/08/21 10:09 Source: patient Mode of arrival: ambulatory History of Present Illness HPI narrative: 51-year-old male with history of diabetes who is insulin dependent and on Ozempic presents today from home with blood sugar in the 30s. Patient states he set his alarm for 6 AM and never woke up. Patient states he had supper last night which consisted of fried chicken and mashed potatoes took 12 units of insulin and did not eat after that. His aunt was at his house and tried to wake him up at 730 but just assumed he was tired. Now looking back she realized that sugar was low then. 911 was called blood sugar 38 at the time. Patient given glucagon and D10 hanging. Upon arrival blood sugar 142. Patient does have an insulin pump which is on a 2-hour hold. Patient states she ate supper last night which was fried chicken and mashed potatoes gave himself a bolus of 12 units of insulin and did not eat after that. Patient is not on any oral medications. Patient does see endocrinology and had a kidney panel done last week. Patient currently alert and oriented x4 sitting up and eating in bed without difficulty. Related Data Home Medications Medication Instructions Recorded Confirmed atorvastatin 80 mg tablet 80 mg PO DAILY 02/25/20 06/16/20 cholecalciferol (vitamin D3) 125 5,000 unit PO DAILY 02/25/20 06/16/20 mcg (5,000 unit) tablet (Vitamin D3) ezetimibe 10 mg tablet (Zetia) 10 mg PO DAILY 02/25/20 06/16/20 hydralazine 100 mg tablet 100 mg PO TID 02/25/20 06/16/20 insulin regular hum U-500 conc 500 See Rx Instructions .Route .COMPLEX 02/25/20 06/16/20 unit/mL subcutaneous soln (Humulin R U-500 (Concentrated) Insulin) lactobacillus combination no.8 3 3,000 mmu cells PO DAILY 02/25/20 06/16/20 billion cell capsule (Adult Probiotic) loratadine 10 mg tablet (Claritin) 10 mg PO DAILY 02/25/20 06/16/20 oxycodone-acetaminophen 5 mg-325 1 tablet PO Q6H PRN Pain 02/25/20 06/16/20 mg tablet pregabalin 100 mg capsule 100 mg PO QID 02/25/20 06/16/20 torsemide 20 mg tablet 40 mg PO DAILY 02/25/20 06/16/20 Glucosamine 1,875 mg PO DAILY 02/28/20 06/16/20 alpha lipoic acid 600 mg capsule 600 mg PO BID 02/28/20 06/16/20 carvedilol 25 mg tablet (Coreg) 25 mg PO DAILY 02/28/20 06/16/20 coQ10 (ubiquinol) 200 mg capsule 400 mg PO DAILY 02/28/20 06/16/20 ferrous sulfate 325 mg (65 mg 325 mg PO DAILY 02/28/20 06/16/20 iron) tablet isosorbide dinitrate 20 mg tablet 20 mg PO TID 02/28/20 06/16/20 polyethylene glycol 3350 17 17 g PO BID 05/28/20 06/16/20 gram/dose oral powder (Miralax) tamsulosin 0.4 mg capsule 0.8 mg PO HS 05/28/20 06/16/20 Allergies Allergy/AdvReac Type Severity Reaction Status Date / Time cetirizine [From Zyrtec] Allergy Mild Rash Verified 12/08/21 10:02 levofloxacin [From Levaquin] Allergy Mild Swelling Verified 12/08/21 10:02 of Lip/Tongue/Throat lisinopril Allergy Mild Cough Verified 12/08/21 10:02 NSAIDS (Non-Steroidal Allergy Mild Rash Verified 12/08/21 10:02 Anti-Inflamma Review of Systems Review of Systems: CONSTITUTIONAL: Low blood sugar at house. Denies fever, chills, or sweats. EYES: Denies visual changes, redness, or discharge. ENT: Denies rhinorrhea, congestion, sore throat, or otalgia. CARDIOVASCULAR: Denies chest pain, palpitations, or edema. RESPIRATORY: Denies cough or dyspnea. GASTROINTESTINAL: Denies abdominal pain, nausea, vomiting, or diarrhea. GENITOURINARY: Denies dysuria or hematuria. SKIN: Denies rash or itching. MUSCULOSKELETAL: Denies back pain, joint pain, or myalgia. NEUROLOGIC: Denies headache, numbness, dizziness, or weakness. PSYCHIATRIC: Denies anxiety or depression. [facility] Past Medical History Medical History (Updated 12/08/21 @ 12:09 by Sophie Wisdom APRN) Chronic anemia Chronic kidney disease Chronic knee pain On Percoc
[2021-12-08 10:55] LABS: Alanine Aminotransferase 20 U/L (6-50); Albumin Level 4.4 g/dL (3.5-5.1); Alkaline Phosphatase 110 U/L (38-126); Anion Gap 6 mmol/L (8-16); Aspartate Amino Transferase 27 U/L (17-59); Bilirubin,Total 0.4 mg/dL (0.2-1.3); Blood Urea Nitrogen 23 mg/dL (9-20); Calcium 8.7 mg/dL (8.4-10.2); Carbon Dioxide 32 mmol/L (22-30); Chloride 101 mmol/L (98-107); Estimated CRCL calculation 104 ml/min; Estimated Glomerular Filt Rate > 60; Glucose 110 mg/dL (65-110); Sodium 139 mmol/L (137-145)
[2021-12-08 11:51] LABS: Glucose Point of Care 170 mg/dl (65-105)
== END 2021-12-08 12:33 | disposition home or self-care (01) ==
PROVIDERS: Emergency Provider Nurse Practitioner Family; PCP Family Medicine
DX: E11.649 Type 2 diabetes mellitus with hypoglycemia without coma (principal); E11.22 Type 2 diabetes mellitus with diabetic chronic kidney disease; I13.0 Hypertensive heart and chronic kidney disease with heart failure and stage 1 through stage 4 chronic kidney disease, or unspecified chronic kidney disease; N18.9 Chronic kidney disease, unspecified; I50.9 Heart failure, unspecified; J44.9 Chronic obstructive pulmonary disease, unspecified; D64.9 Anemia, unspecified; E11.42 Type 2 diabetes mellitus with diabetic polyneuropathy; E11.69 Type 2 diabetes mellitus with other specified complication; M86.9 Osteomyelitis, unspecified; E78.5 Hyperlipidemia, unspecified; G47.33 Obstructive sleep apnea (adult) (pediatric); Z79.4 Long term (current) use of insulin; Z79.899 Other long term (current) drug therapy; Z96.41 Presence of insulin pump (external) (internal); Z87.891 Personal history of nicotine dependence
CPT/HCPCS: 36415; 80053; 82948; 85025; 99283

== ENCOUNTER 2025-04-14 14:07 | Outpatient (CLI) | payer MEDICARE, SELFPAY ==
--- NOTE | ~2025-04-14 | XR_ITS ---
EXAMINATION: XR finger 4th RT min 2V, 04/14/2025 14:35 CDT HISTORY: S69.90XA - Unspecified injury of unspecified wrist, hand ... COMPARISON: No comparisons available. Findings: No acute fracture or malalignment. No significant degenerative changes. Soft tissues unremarkable. Impression: No acute fracture or malalignment. Reviewed, dictated and finalized at location P. Impression: No acute fracture or malalignment.
--- OUTSIDE RECORDS SUMMARY | 2025-04-14 14:58 | XMS_ITS | Encounter Summary ---
Author Organization [employer] Address [address] [place] [address] Care Team Providers Care Fruit Buyer Name Role Phone Magdy Guzman MD Primary Care Provider [phone] Encounter Details Date Type Department Care Team (Late st Contact Info) Description 09/18/2005 Outpatient [facility] [address] 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
--- OUTSIDE RECORDS SUMMARY | 2025-04-14 14:58 | XMS_ITS | Encounter Summary ---
Author Organization [facility] Address [address] [place] [address] Care Team Providers Care Fisheries Officer Name Role Phone Derrick Saeed MD Unavailable [phone] Partha Miles MD Unavailable Danna Rollins Primary Care Provider Unavailabl e Magdy Guzman MD Primary Care Provider [phone] Encounter Details Date Type Department Care Team (Late st Contact Info) Description 11/23/2020 Lab Requisition [facility] [address] [place] [id number] Leno Smith Jr., MD [address] [place] [address] Social History Tobacco Use Types Packs/Day Years Used Date Smoking Tobacco: Former Pipe Q uit: 02/14/2015 Smokeless Tobacco: Never Comments:smoked pipe 2-3 garry es per year Alcohol Use Standard Drinks/Week Comments Yes 15 (1 standard drink = 0.6 oz pu re alcohol) Sex and Gender Information Value Date Recorded Sex Assigned at Not on file Legal Sex Male 6:21 AM DEFENSE ANALYST Gender Identity Not on file Sexual Orientation Not on file 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 - Endocrinology [address] [place] [address] Michael Membreno MD [address] [place] [address] documented as of this encounter Procedures Procedure Name Priority Date/Time Associated Diagnosis Comments DERMATOPATHOLOGY Routine 11/20/2020 12:0 0 AM CDT documented in this encounter Results * DERMATOPATHOLOGY (11/20/2020 12:00 AM CDT) Case Report Dermatopathology Report Case: [id number] Authorizing Provider: Leno Smith Jr., MD Collected: 11/20/2020 12:00 AM Ordering Location: [facility] Received: 11/23/2020 12:56 PM Pathologist: Adela Brandt MD Specimen: Skin, left central eyebrow 5:26 PM CDT DERMATOPATHOLOGY LABORATORY Final Diagnosis Specimen A. SKIN, left central eyebrow: VERRUCA VULGARIS, INFLAMED (B07.8) 5:26 PM CDT DERMATOPATHOLOGY LABORATORY at 1726 CDT Clinical History Wart vs irritated seborrheic keratosis. 5:26 PM CDT DERMATOPATHOLOGY LABORATORY Gross Description Specimen A: Received is one formalin filled container labeled with the patient's name and designated left central eyebrow. The specimen consists of a shave biopsy measuring [id number]. Jar 0. 1 5:26 PM CDT DERMATOPATHOLOGY LABORATORY Microscopic Description Specimen A. SKIN, left central eyebrow: Sections show papillomatosis. Some of the cells within the granular layer show coarsened keratohyalin granules. Within the dermis, dilated vessels and a patchy lymphocytic infiltrate are present. 05/11/202 1 5:26 PM CDT DERMATOPATHOLOGY LABORATORY Disclaimer An external and internal positive and negative controls are appropriate for the histochemical, immunohistochemical and immunofluorescence stain(s) in this case (if any), except where stated explicitly. The performance characteristics of the stain(s) cited in this report were developed and its performance characteristic determined by the Dermatopathology Laboratory at [facility], directed by Dr. Leonarda Brandt. These tests need not be, and therefore are not, approved by the [place] Food and Drug Administration. The tests are used for clinical purposes. Billing Codes Specimen Charges Stain Charges 82994 1 1 5:26 PM CDT DERMATOPATHOLOGY LABORATORY Embedded Images 1 5:26 PM CDT DERMATOPATHOLOGY LABORATORY Pathology/Cytolog y TISSUE SPECIMEN FROM SKIN / Unknown 11/20/2020 11/23/2020 12:56 PM CDT Leno Smith Jr., MD LAB - PATHOLOGY/CYTOLOG Y ORDERABLES Final Result DERMATOPATHOLOGY LABORATORY [facility] - Department of Dermatology [facility] [address] [place] [address], [address] [phone] documented in this encounter Visit Diagnoses Not on filedocumented in this encounter Care Teams Fisheries Officer Relationship Specialty Start Date End Date Danna Rollins Update Information PCP - General 11/23/20 03/16/[address] [facility] [place] [address] PCP - General Family Medicine 03/17/21 Derrick Saeed MD Referring Physician Plastic and Reconstructive Surgery 05/26/15 Partha Miles MD Radiation Oncologist Radiation Oncology 05/26/15 documented as of this encounter
--- OUTSIDE RECORDS SUMMARY | 2025-04-14 14:58 | XMS_ITS | Data Portability ---
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 Available metformin 1,000 mg tablet 06/04 completed Not Available Not Available Not Available neomycin-po lymyxin-dex ameth 3.5 mg/mL-10,00 0 unit/mL-0.1 % eye drops INSTILL 1 DROP INTO AFFECTED EYE(S) BY OPHTHALMI C ROUTE EVERY 3-4 HOURS active Not Available Not Available No t Available triamcinolo ne acetonide 0.1 % topical ointment APPLY TO RED INFLAMED OR SYMPTOMAT IC SKIN ON LEGS TWICE DAILY WHEN NEEDED active Not Available Not Available No t Available Viagra 25 mg tablet Take 1 tablet every day by oral route. active Not Available Not Available No t Available lisinopril 10 mg tablet TAKE ONE TABLET BY MOUTH ONCE DAILY active Not Available Not Available No t Available valsartan 320 mg tablet TAKE 1 TABLET BY MOUTH ONCE DAILY active Not Available Not Available No t Available losartan 25 mg tablet TAKE 1/2 (ONE-HALF ) TABLET BY MOUTH ONCE DAILY active Not Available Not Available No t Available isosorbide dinitrate 40 mg tablet TAKE 1 TABLET BY MOUTH THREE TIMES DAILY 04/23 completed Not Available Not Available Not Available betamethaso ne, augmented 0.05 % topical ointment APPLY OINTMENT TOPICALLY ONCE DAILY FOR 30 DAYS active Not Available Not Available No t Available aspirin 81 mg chewable tablet active Not Available Not Available Not Available diclofenac sodium 75 mg tablet,zhao yed release TAKE 1 TABLET BY MOUTH TWICE DAILY 04/24 completed Not Available Not Available Not Available insulin syringe U-100 with needle 1 mL 31 gauge x 11/29 completed Not Available Not Available Not Available montelukast 10 mg tablet TAKE 1 TABLET BY MOUTH ONCE DAILY active Not Available Not Available No t Available hydroxyzine HCl 25 mg tablet TAKE ONE TABLET BY MOUTH EVERY 6 HOURS NEEDED active Not Available Not Available No t Available ammonium lactate 12 % topical cream APPLY CREAM TOPICALLY TWICE DAILY TO THICK ROUGH SKIN ON LEGS, NECK AND ARM PITS. 04/23 completed Not Available Not Available Not Available mupirocin 2 % topical ointment active Not Available Not Available Not Available furosemide 20 mg tablet TAKE 1 TABLET BY MOUTH ONCE DAILY 09/16 completed Not Available Not Available Not Available clobetasol 0.05 % topical ointment active Not Available Not Available Not Available Viagra 100 mg tablet 04/24 completed Not Available Not Available Not Available Cheratussin AC 10 mg-100 mg/5 mL oral liquid 05/15 completed Not Available Not Available Not Available ibuprofen 600 mg tablet active Not Available Not Available Not Available levofloxaci n 500 mg tablet Take 1 tablet every 24 hours by oral route. active Not Available Not Available No t Available oxycodone-a cetaminophe n 7.5 mg-325 mg tablet TAKE 1 TABLET BY MOUTH EVERY 6 HOURS NEEDED 04/23 completed Not Available Not Available Not Available methylpredn isolone 4 mg tablets in a dose pack Use as directed 06/04 completed Not Available Not Available Not Available albuterol sulfate HFA 90 mcg/actuati on aerosol inhaler 2 puffs 4 times a day as needed active Not Available Not Available No t Available ketoconazol e 2 % topical cream Apply in between toes daily until resolutio n active Not Available Not Available No t Available hydroxyzine HCl 10 mg tablet 05/15 completed Not Available Not Available Not Available lisinopril 40 mg tablet 04/14 completed Not Available Not Available Not Available cefdinir 300 mg capsule TAKE 1 CAPSULE BY MOUTH EVERY 12 HOURS active Not Available Not Available No t Available doxycycline hyclate 100 mg tablet Take 1 tablet twice a day by oral route. active Not Available Not Available No t Available amoxicillin 875 mg-potassiu m clavulanate 125 mg tablet Take 1 tablet every 12 hours by oral route for 10 days. 04/23 completed Not Available Not Available Not Available ezetimibe 10 mg tablet TAKE 1 TABLET BY MOUTH ONCE DAILY active Not Available Not Available No t Available Ciprodex 0.3 %-0.1 % ear drops,suspe nsion active Not Available Not Available Not Available Cialis 5 mg tablet Take 1 tablet every day by oral route. active Not Available Not Available No t Available Cialis 20 mg tablet Take 1 tablet as needed by oral route. active Not Available Not Available No t Available No Sting Skin Prep Wipes active Not Available Not Available Not Available metformin ER 1,000 mg tablet,exte nded release 24hr (osmotic) active Not Available Not Available No t Available pregabalin 100 mg capsule 1 cap 4 times a day 12/11 completed Not Available Not Available Not Available pregabalin 200 mg capsule Take 1 capsule by mouth 4 times daily active Not Available Not Available No t Available Fish Oil 04/14 completed Not Available Not Available Not Available glucosamin- chond-msm-c al-115HC 04/14 completed Not Available Not Available Not Available lidocaine (PF) 10 mg/mL (1 %) injection solution In office injection administe red by the provider 08/28 completed [facility]: [phone] Not Available Not Available Not Available Apidra U-100 Insulin 100 unit/mL subcutaneou s solution INJECT 3.5 UNITS SUBCUTANE OUSLY EVERY HOUR AND 20 UNITS WITH EACH MEAL VIA POD active Not Available Not Available No t Available FreeStyle Lite Strips USE 1 STRIP TO CHECK GLUCOSE THREE TIMES DAILY 04/23 completed Not Available Not Available Not Available FeroSul 325 mg (65 mg iron) tablet TAKE 1 TABLET BY MOUTH ONCE DAILY active Not Available Not Available No t Available Cialis 2.5 mg tablet TAKE ONE TABLET BY MOUTH ONCE DAILY 06/04 completed Not Available Not Available Not Available Omnipod Classic Pods (Gen 3) subcutaneou s cartridge active Not Available Not Available Not Available Omnipod Classic PDM Kit(Gen 3) 05/01 completed Not Available Not Available Not Available Suprep Bowel Prep Kit 17.5 gram-3.13 gram-1.6 gram oral solution active Not Available Not Available Not Available Vascepa 1 gram capsule Take 2 capsules twice a day by oral route after meal(s) for 30 days, for high triglycer ides. 03/19 completed Not Available Not Available Not Available Humalog KwikPen U-200 Insulin 200 unit/mL (3 mL) subcutaneou s active Not Available Not Available Not Available Fluvirin 3974-5791 (PF) 45 mcg (15 mcg x 3)/0.5 mL IM syringe active Not Available Not Available N ot Available Sernivo 0.05 % topical spray with pump 05/01 completed Not Available Not Available Not Available TRUEplus Glucose 3.75 gram chewable tablet active Not Available Not Available Not Available Ozempic 0.25 mg or 0.5 mg (2 mg/1.5 mL) subcutaneou s pen injector INJECT 0.25 (ONE-QUAR TER) MG SUB-Q EVERY 7 DAYS 04/23 completed Not Available Not Available Not Available Dexcom G6 Sensor device active Not Available Not Available Not Available FreeStyle Johanny 14 Day [place] 04/14 completed Not Available Not Available Not Available FreeStyle Johanny 14 Day Sensor kit 04/24 completed Not Available Not Available Not Available Gvoke HypoPen 2-Pack 0.5 mg/0.1 mL subcutaneou s auto-inject or INJECT 0.1ML SUBCUTANE OUSLY DIRECTED 04/23 completed Not Available Not Available Not Available Ozempic 1 mg/dose (4 mg/3 mL) subcutaneou s pen injector INJECT 1MG SUBCUTANE OUSLY ONCE EVERY 7 DAYS 04/24 completed Not Available Not Available Not Available Ozempic 2 mg/dose (8 mg/3 mL) subcutaneou s pen injector active Not Available Not Available Not Available Ozempic 0.25 mg or 0.5 mg (2 mg/3 mL) subcutaneou s pen injector 04/24 completed Not Available Not Available Not Available Vitals Date Recorded Body height Body mass index (BMI) Body weight Body temperature Heart rate Oxygen saturation Oxygen saturation in Arterial blood by Pulse oximetry Systolic And Diastolic Provider Name and Address Organization Details Last Updated DateTime 5 177.8 cm 52 kg/m2 060161. 59 g 97.5 [degF] 100 /min 96 % 96 % 134/88 mm[Hg] Amanda Cobian RN [facility] [employer] [facility] 5 10:13:14 Date Recorded Body height Body mass index (BMI) Body weight Body temperature Heart rate Oxygen saturation Oxygen saturation in Arterial blood by Pulse oximetry Systolic And Diastolic Provider Name and Address Organization Details Last Updated DateTime 5 177.8 cm 37.6 kg/m2 209090. 2 g 98.4 [degF] 106 /min 97 % 97 % 168/78 mm[Hg] Becki Yi [facility] [employer] [facility] 5 15:54:48 Date Recorded Body height Body mass index (BMI) Body weight Body temperature Heart rate Oxygen saturation Oxygen saturation in Arterial blood by Pulse oximetry Systolic And Diastolic Provider Name and Address Organization Details Last Updated DateTime 5 177.8 cm 51.2 kg/m2 028594. 48 g 97.2 [degF] 106 /min 94 % 94 % 162/76 mm[Hg] Becki Yi [facility] [employer] [facility] 5 11:37:48 Date Recorded Body height Body mass index (BMI) Body weight Provider Name and Address Organization Details Last Updated DateTime 04/24/2024 177.8 cm 50.2 kg/m2 642474.33 g Carla Barrientos [employer] [facility] [employer] [facility] 04/24/2024 09:24:29 Date Recorded Body mass index (BMI) Body height Oxygen saturation Oxygen saturation in Arterial blood by Pulse oximetry Heart rate Body temperature Body weight Systolic And Diastolic Provider Name and Address Organization Details Last Updated DateTime 2 48.2 kg/m2 177.8 cm 95 % 95 % 104 /min 97.5 [degF] 546765. 04 g 160/70 mm[Hg] Not Available [facility] 3 06:03:15 Social History Question Answer Notes LastModified by Organizat ion Details LastModified Time Tobacco Smoking Status Former Smoker stop in november of last yr Not Available [facility] 09/14/2022 05:56:46 What Is Your Level Of Caffeine Consumption? Moderate Information not available 09/12/2024 How Much Tobacco Do You Chew? None [id number] Information not available 09/14/2022 In The 14 Days Before Symptom Onset, Have You Had Close Contact With A Laboratory-confir med COVID-19 While That Case Was Ill? No [id number] Information not available 09/14/2022 In The 14 Days Before Symptom Onset, Have You Had Close Contact With A Person Who Is Under Investigation For COVID-19 While That Person Was Ill? No [id number] Information not available 09/14/2022 Are You Passively Exposed To Smoke? No [id number] Information not available 09/14/2022 Sex: Unknown Functional Status Question Answer Note LastModified by Organization D etails LastModified Time What is your level of alcohol consumption? None [email or web address] Information not available 04/24/2024 Mental Status None recorded. Family History Relationship Description Onset Age of this Age Resolved Age Notes LastModified by Organization Details LastModified Time Mother Heart disease [email or web address] Not available 2023 09:26:25 Mother Hypertensive disorder [email or web address] Not available 2023 09:26:37 Mother Diabetes mellitus [email or web address] Not available 2023 09:26:49 Maternal Grandmother Heart disease [email or web address] Not available 2023 09:26:25 Father Hypertensive disorder [email or web address] Not available 2023 09:26:37 Father Diabetes mellitus [email or web address] Not available 2023 09:26:49 Notes:no family history of m icroscopic hematuria, urolithiasis or prostate cancer. Medical History Condition Response ARTHRITIS Y VASCULAR DISEASE Y HEART DISEASE/HEART PROBLEMS Y SKIN PROBLEMS Y DIABETES, TYPE Y OBESITY Y ANEMIA/BLOOD DISORDER Y URINARY/BLADDER/KIDNEY PROBLEMS Y FOOT PROBLEM Y Immunizations Vaccine Type Date Status Note Provider Nam e and Address Organization Details Recorded Time Influenza, recombinant, trivalent, PF 4 completed Margo villalba [facility] [employer] 04/19/2024 08:43:18 COVID-19, mRNA, LNP-S, PF, zahida-sucrose, 30 mcg/0.3 mL 4 completed Margo villalba [facility] [employer] 04/19/2024 08:43:55 influenza, unspecified formulation 5 completed NADEEM Foote null, [place] - [facility] 03/19/2025 11:42:05 COVID-19 vaccine, vector-nr, rS-Ad26, PF, 0.5 mL 1 completed Not Available [facility] 09/14/2022 06:17:46 Influenza, split virus, quadrivalent, PF 0 completed Not Available [facility] 09/14/2022 06:17:47 Past Encounters Encounter ID Performer Location Encounter Start Date Encounter Closed Date Diagnosis/Indication Diagnosis SNOMED-CT Code Diagnosis ICD10 Code Diagnosis IMO Codes Diagnosis Note [id number] Magdy Guzman MD [facility] [place] [address] [place] [address] [place] [address] 09/23/2020 00:00:00 09/24/2020 06:28:40 [id number] Magdy Guzman MD [facility] Don [place] [address] [place] [address] [place] [address] 11/20/2020 00:00:00 11/20/2020 10:30:41 [id number] Magdy Guzman MD [facility] [place] [address] [place] [address] [place] [address] 01/07/2021 00:00:00 02/09/2021 15:08:50 [id number] Magdy Guzman MD [facility] [place] [address] [place] [address] [place] [address] 02/05/2021 00:00:00 02/07/2021 10:55:41 [id number] Magdy Guzman MD [facility] [place] [address] [place] [address] [place] [address] 03/01/2021 00:00:00 03/01/2021 22:21:02 [id number] Clint Leung DPM [facility] [address] [place] [address] 04/07/2021 00:00:00 04/07/2021 11:11:28 [id number] [facility] [place] [address] [place] [address] 05/10/2021 00:00:00 05/11/2021 20:44:30 [id number] [facility] [place] [address] [place] [address] 11/08/2021 00:00:00 11/08/2021 11:10:02 [id number] Magdy Guzman MD [address] [place] [address] 01/20/2022 00:00:00 01/20/2022 19:44:56 [id number] Magdy Guzman MD [address] [place] [address] 05/26/2022 00:00:00 05/27/2022 05:55:25 [id number] Matt Horner MD [facility] [place] [address] [place] [address] 04/24/2024 09:08:16 04/24/2024 10:11:18 Pain of bilateral hands 2671522071 4901293 M79.641 M79.642 Carpal karen bebo syndrome of right wrist 3633744446 65153 G56.01 [id number] Nkio Arrieta MD [address] [address] 09/12/2024 10:02:15 09/12/2024 15:02:32 Screening for malignant neoplasm of prostate 234830796 Z12.5 Hyperlipidemia 34708341 E78.5 Ankylosing spondylitis 0716170 M45.9 Benign pro static hyperplasia 480286199 N40.1 Diabetes mellitus 145820 09 E11.40 Z86.31 L60.0 Z74.1 Diabetic p eripheral neuropathy 011601818 E11.40 Hidradenit is suppurativa 72720755 L73.2 Low back pain 602174068 M54.50 Osteoarthritis 673499288 M19.90 Venous ins ufficiency of leg 555845560 I87.2 [id number] Niko Arrieta MD [facility] [address] 11/11/2024 15:42:55 11/11/2024 16:29:22 Acute urticaria 944053929 L50.9 Pruritic disorder 763916 002 L29.9 Paronychia 82673085 L03. 032 Anemia 105180114 D64.9 Diabetes mellitus 784270 09 E11.40 Z86.31 L60.0 Z74.1 [id number] Niko Arrieta MD [address] [address] 03/19/2025 10:50:17 03/19/2025 12:50:39 Bilateral carpal tunnel syndrome 6709817485 2977037 G56.03 [id number] Painful, completed OT without reliefCurr ently wearing wrist supports Coffee roya und vomiting 86705757 K92.0 982597 regurgitat ion that he describes as coffee groundsNot es a fullness in his abdomen, not eating much now Hypertensive disorder 38 592430 I10 Elevated the last few weeks, he will notify his cardiologi st Hyperlipidemia 56025722 E78.5 Labs managed by cardiology . Last lipid panel within normal range Diabetes mellitus 562822 09 E11.40 Z86.31 L60.0 Z74.1 Well controlled , sees endo this Health Concerns Section Related Observation LastModified by Organization Detai ls LastModified Time None Recorded Concern Status LastModified by Organization Details LastModified Time None Recorded Advance Directives Directive None Recorded Payers Insurance Date Sequence Insurance Name Policy Number Policy Brady Covered Member ID Brady Member ID Guarantor Name 08/06/2024 [facility] Vickie Sanchez SELF SELF Vickie Sanchez 11/11/2024 1 [place] [id number] Vickie Sanchez [id number] Vickie Sanchez 03/21/2025 2 [facility] (MEDICARE REPLACEMENT/A DVANTAGE - PPO) [id number] Vickie Sanchez [id number] Vickie Sanchez 03/21/2025 1 [place] Vickie Sanchez [id number] Vickie Sanchez 04/09/2025 2 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 itchy rash KAIN Batista [address], [place], [address], [employer] 11/17/2024 15:22:02 03/19/2025 text/html Vickie Sanchez is a 54 year old male patient here today to establish care. He was previously under the care of [place] Spivey. He has concerns today with numbness and tingling in PETE hands, worse in the AM. 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 He states his pain has worsened since retiring.He is doing OT for this with minimal improvement He has been coughing up coffee ground mucous for the past week. He notes a decreased appetite x 2 weeks with abdominal fullnessHe notes this is more like regurgitation following food or drink History of hypertension. This is well controlled. Patient does check BP readings at home. These average 150s/90s.BP on arrival today is 162/76.Patient declines headaches, tinnitus, light headedness, fatigue.He is seeing cardiology, he will FU with them about elevated BP Type 2 diabetes mellitus. This is well controlled. Last A1C 5.8 on 11/11/24. He sees endo next The patient does check their blood glucose at home, this averages 150s.They are currently taking humalog, Ozempic.Patient denies confusion, excessive urination and thirst, neuropathy, foot wounds. He does have SOB on exertion, he utilizes albuterol PRN Hyperlipidemia. This is controlled by cardio.They are currently taking atorvastatin 80 mg. Denies muscle cramping.Advised to limit fatty/greasy foods and increase cardiovascular exercise Rheumatoid arthritis Flu shot: 03/14/25COVID vaccines: x2Tdap: [id number] 03/14/25PSA 0.82, 11/15/24Colonoscopy: will do with EGD this year [facility] [address] [facility], [facility] [address], [place], [address], [facility] 03/19/2025 14:21:21
--- OUTSIDE RECORDS SUMMARY | 2025-04-14 14:58 | XMS_ITS | Clinical Summary ---
Author Organization [facility] Address [address] [place] [address] Care Team Providers Care Server Developer Name Role Phone Derrick Saeed MD Unavailable [phone] Partha Miles MD Unavailable [phone] Magdy Guzman MD Primary Care Provider [phone] Source Comments [facility],non-owned Affiliates and Associated Physician Practices is amultiple site organization consisting of ambulatory clinics and hospital sitesin [place], [place], [place] and [place]. This disclosure is being madepursuant to the Care Everywhere program and may not contain all information available regarding this patient. Last updated 18.[facility] Allergies Active Allergy Reactions Criticality Noted Date Comments Fexofenadine 10/31/2016 Ibuprofen Rash,Unknown Medium 10/31/2016 Lisinopril Cough Low 10/31/2019 Cough Cough Cough Cough Cough Cough Cough Cough Cough Naproxen Rash,Unknown Medium 10/31/2016 Nsaids Rash Medium 08/12/2019 Cetirizine 10/31/2016 Medications * Be aware that medications may not be up to date on this document. Alwaysverify current medications with the patient. RELION INSULIN SYRINGE 1ML/31G 31G X /16 1 ML syringe 1 (one) Each 3 times daily before meals Reported on 08/02/2016 11/09/19 16 Active PROAIR HFA 108 (90 BASE) MCG/ACT inhaler 90 mcg as needed 09/01/19 19 Active isosorbide dinitrate (ISORDIL) 20 MG tablet 3 times daily 02/12/20 20 Active torsemide (DEMADEX) 20 MG tablet Take 1 (one) tablet by mouth 2 times daily 01/06/20 20 Active hydrALAZINE (APRESOLINE) 100 MG tablet 3 times daily 12/25/19 20 Active pregabalin (LYRICA) 200 MG capsule Take 1 (one) capsule by mouth 4 times daily 01/28/20 20 Active carvedilol (COREG) 25 MG tablet carvedilol 25 mg tablet TAKE 1 TABLET BY MOUTH TWICE DAILY WITH MEALS 02/12/20 20 Active tamsulosin (FLOMAX) 0.4 MG capsule 08/16/19 21 Active Bowie-3 Fatty Acids (RA FISH OIL) 1000 MG Fish Oil 08/28/19 20 Active montelukast (SINGULAIR) 10 MG tablet montelukast 10 mg tablet TAKE 1 TABLET BY MOUTH ONCE DAILY Active traMADol (ULTRAM) 50 MG tablet Take 2 (two) tablets by mouth Active GVOKE HYPOPEN 2-PACK 0.5 MG/0.1ML SOAJ INJECT 0.1 ML SUB-Q DIRECTED 2 mL 12/10/19 22 Active ezetimibe (ZETIA) 10 MG tablet Take 1 tablet by mouth once daily 90 tablet 02/15/20 22 Active Insulin Disposable Pump (Omnipod Classic Pods, Gen 3,) MISC Inject 1 Each subcutaneously every 2 days 30 Each 5 05/04/20 22 Active atorvastatin (Lipitor) 80 MG tablet TAKE 1 TABLET BY MOUTH ONCE DAILY AT BEDTIME 90 tablet 05/27/20 22 Active HumaLOG KWIKPEN 200 UNIT/ML 07/13/20 23 Active Ozempic, 2 MG/DOSE, 8 MG/3ML pen 12/19/19 24 Active aspirin (Aspirin) 81 MG chew tablet Take 1 (one) tablet by mouth 05/03/20 24 Active cyclobenzaprin e (Flexeril) 10 MG tablet Take 1 (one) tablet by mouth at bedtime Active FeroSul 325 (65 Fe) MG tablet 08/07/19 24 Active fluticasone propionate (Flonase) 50 MCG/ACT nasal spray INSTILL 2 SPRAYS IN NOSTRIL(S) ONCE A DAY FOR RHINITIS (MUST BE USED DIRECTED FOR MINIMUM OF 21 DAYS TO PROVIDE ADEQUATE BENEFITS) 05/03/20 24 Active hydrOXYzine HCl (Atarax) 25 MG tablet Take 1 (one) tablet by mouth every 6 hours as needed Active leflunomide (Arava) 20 MG tablet Take 1 (one) tablet by mouth once daily 02/06/20 24 Active Multiple Vitamin (Multi-Vitamin ) TABS Take 1 (one) tablet by mouth Active omeprazole (PriLOSEC) 40 MG capsule TAKE 1 CAPSULE BY MOUTH ONCE DAILY TO PREVENT NSAID SE 05/03/20 24 Active tadalafil (Cialis) 20 MG tablet Take 1 tablet as needed by oral route. Active Blood Glucose Monitoring Suppl (Accu-Chek Guide) w/Device KITIndications :Controlled type 2 diabetes mellitus without complication, with long-term current use of insulin (HCC) Use 1 Each once daily 1 Each 01/01/20 25 Active blood glucose (Accu-Chek Guide) test stripIndicatio ns:Controlled type 2 diabetes mellitus without complication, with long-term current use of insulin (HCC) Use 1 (one) strip once daily 100 strip 01/01/20 25 Active losartan (Cozaar) 25 MG tablet Take 0.5 (one-half) tablet by mouth once daily Active Blood Glucose Monitoring Suppl (Accu-Chek Guide) w/Device KITIndications :Diabetes mellitus type 2, insulin dependent (HCC) Use 1 Each as directed 1 Each 03/31/20 25 Active blood glucose (Accu-Chek Guide) test stripIndicatio ns:Diabetes mellitus type 2, insulin dependent (HCC) Use 1 (one) strip once daily as needed for Other (as calibration with continous glucose monitor) 100 strip 3 03/31/20 25 Active Accu-Chek FastClix LancetsIndicat ions:Diabetes mellitus type 2, insulin dependent (HCC) Use once daily as needed (as calibration with continuous glucose monitor) 100 Each 3 03/31/20 25 Active Semaglutide, 1 MG/DOSE, (Ozempic) 4 MG/3ML pen Inject 1 (one) mg subcutaneously every 7 days 3 mL 2 08/25/19 23 025 Discontin ued(List Clean-Up) azaTHIOprine (Imuran) 50 MG tablet Take 3 (three) tablets by mouth once daily 07/11/20 025 Discontin ued(List Clean-Up) FREESTYLE LITE STRIPS test stripIndicatio ns:Controlled type 2 diabetes mellitus without complication, with long-term current use of insulin ([facility]) Use 1 (one) strip as directed 100 strip 3 12/25/19 25 025 Discontin ued(Dose Adjustmen t) SOFTCLIX LANCETS MISCIndication s:Controlled type 2 diabetes mellitus without complication, with long-term current use of insulin ([facility]) Use 1 Each once daily 100 Each 01/01/20 025 Discontin ued(Dose Adjustmen t) Active Problems Problem Noted Date Diagnosed Date Dyslipidemia 11/06/2017 Insulin pump status, using U500 in pump 11/01/19 Essential hypertension 01/26/2016 Diabetes mellitus type II, c ontrolled, with no complications 10/27/2015 Mixed hyperlipidemia 10/27/2015 Hypertension with goal blood pressure less than 140/90 10/27/2015 Morbid obesity 10/27/2015 ANMOL (obstructive sleep apnea) 10/27/2015 Encounters Date Type Department Care Team Description 03/31/2025 Telephone [facility] - Endocrinology [address] [place] [address], [address] [address] Michael Membreno MD MEDICATION REFILL 03/27/2025 10:40 AM CDT Office Visit [facility] - Endocrinology [address] [place] [address], [address] [address] Michael Membreno MD Diabetes mellitus type 2, insulin dependent (HCC) (Primary Dx); Insulin pump status; Mixed hyperlipidemia; Essential hypertension from Last 3 Months Immunizations Immunization Administration Dates Next Due INFLUENZA VACCINE, TRIV. (AF LURIA, FLUZONE TRIVALENT; 6MO+) (IIV3) 05/13/2015 INFLUENZA VACCINE, QUADR. (F LUZONE; FLULAVAL; FLUARIX; AFLURIA QUADRIVALENT; 6MO+), 0.5 ML (IIV4) 05/07/2020 TDAP (7yrs+) 05/15/2017 Family History Medical History Relation Name Comments Diabetes Father Diabetes Mother Relation Name Status Comments Brother 1 Alive Brother 2 Alive Brother 3 Alive Father (Age 44) Diabetes c omplications Mother Alive 67 Sister 1 Alive Sister 2 Alive Sister 3 Alive Social History Tobacco Use Types Packs/Day Years Used Date Smoking Tobacco: Former Pipe Q uit: 02/14/2015 Smokeless Tobacco: Never Tobacco Cessation:Counseling Given: Not Answered Comments:smoked pipe 2-3 times per year Alcohol Use Standard Drinks/Week Comments Yes 15 (1 standard drink = 0.6 oz pu re alcohol) Sex and Gender Information Value Date Recorded Sex Assigned at Not on file Legal Sex Male 6:21 AM UTILITY PIPE LAYER Gender Identity Not on file Sexual Orientation Not on file 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 Not on file Not on file Not on file Last Filed Vital Signs Vital Sign Reading Time Taken Comments Blood Pressure 144/76 05/22/2024 10:24 AM UTILITY PIPE LAYER Pulse 84 05/27/2015 10:57 AM UTILITY PIPE LAYER Temperature 37.2 C (99 F) 05/27/2015 10:57 AM UTILITY PIPE LAYER Respiratory Rate 16 05/27/2015 10:57 AM UTILITY PIPE LAYER Oxygen Saturation - - Inhaled Oxygen Concentration - - Weight 167.8 kg (370 lb) 05/22/2024 10:24 AM UTILITY PIPE LAYER Height 177.8 cm (5' 10) 05/22/2024 10:24 AM UTILITY PIPE LAYER Body Mass Index 53.09 05/22/2024 10:24 AM UTILITY PIPE LAYER Plan of Treatment Upcoming Encounters Date Type Department Care Team (Late st Contact Info) Description 08/18/2025 11:20 AM UTILITY PIPE LAYER Office Visit [facility] - Endocrinology [address], [address] [place] [address] Michael Membreno MD [address] [place] [address] Health Maintenance Due Date Last Done Comments COLOGUARD (AGES 45-75) - COLON CA SCREENING 1969 COLON MONITORING 1969 COLONOSCOPY - COLON CA SCREENING 1969 CT COLONOGRAPHY - COLON CA SCREENING 1969 Colorectal Cancer Screening 1969 FIT - COLON CA SCREENING 1969 FLEX SIG - COLON CA SCREENING 1969 MEDICARE AWV 12 MONTHS 1969 HIV SCREENING 1984 HEPATITIS B VACCINE (1 of 3 - 19+ 3-dose series) 1988 PNEUMOCOCCAL VACCINE 50+ (1 of 2 - PCV) 1988 ZOSTER VACCINE (1 of 2) 2019 DEPRESSION SCREENING 07/17/2024 DIABETES - URINE PROTEIN SCREENING 07/17/2024 05/22/2024, 08/25/2022, 09/24/2021, Additional history exists COVID-19 VACCINE ( season) 2025 05/20/2021, 10/21/2020 INFLUENZA VACCINE (#1) 2025 , 04/21/2023, 05/17/2022, Additional history exists DIABETES RETINOPATHY SCREENING 04/03/2025 04/03/2023 (Done Outside Per Patient), 01/26/2016 DIABETES-SERUM CREATININE 05/22/20252023, 09/05/2022, 08/25/2022, Additional history exists DIABETES-HGB A1C 09/24/2025 03/27/2025, 12/2023, 05/03/2023, Additional history exists DIABETES-FOOT EXAM WITH MONOFILAMENT 03/27/2026 03/27/2025, 07/28/2015 DTAP/TDAP/TD VACCINES (2 - Td or Tdap) 05/15/2027 05/15/2017 HEPATITIS C SCREENING Completed 04/08/2021 HIB VACCINE Aged Out No longer eligi ble based on patient's age to complete this topic HPV VACCINE Aged Out No longer eligi ble based on patient's age to complete this topic MENINGOCOCCAL (Group B) VACCINE SHARED DECISION-MAKING Aged Out No longer eligible based on patient's age to complete this topic MENINGOCOCCAL GROUPS A/C/Y/W VACCINE Aged Out No longer eligible based on patient's age to complete this topic Procedures Procedure Name Priority Date/Time Associated Diagnosis Comments HEMOGLOBIN A1C - POINT OF CARE (AMB) Routine 03/27/2025 10:40 AM CDT Diabetes mellitus type 2, insulin dependent (HCC) MICROALB/CREAT RATIO URINE RANDOM PANEL Routine 05/22/2024 11:19 AM UTILITY PIPE LAYER Diabetes mellitus type 2, insulin dependent COMPREHENSIVE METABOLIC PANEL Routine 05/22/2024 11:19 AM UTILITY PIPE LAYER Diabetes mellitus type 2, insulin dependent DIABETES EYE EXAM Routine 01/26/2016 from Last 3 Months or Most Recently Relevant to Health Maintenance Results * HEMOGLOBIN A1C - POINT OF CARE (AMB) (03/27/2025 10:40 AM CDT) Pathologist [facility] Hemoglobin A1c POCT 6.3 % [facility] Expiration Date [facility] Lot # [id number] [facility] QC Verified Yes Yes [facility] Blood BLOOD SPECIMEN / Unknown 03/27/2025 10:40 AM CDT Michael Membreno MD LAB - POINT OF CARE ORDERAB LES Final Result Performing Organization Address City/State/[facility] de Phone Number [facility] [address], [facility] [address] [place] [address], [facility] [phone] * (ABNORMAL) MICROALB/CREAT RATIO URINE RANDOM PANEL (05/22/2024 11:19 AM UTILITY PIPE LAYER) Creatinine Urine 114.35 mg/dL [facility] ACCOUNT BILL Microalbumin Urine 4.0 mg/dL [facility] ACCOUNT BILL Microalbumin/Crea tinine Ratio 34(H) <30 mg/g [facility] ACCOUNT BILL Urine URINE SPECIMEN OBTAINED BY CLEAN CATCH PROCEDURE / Unknown 05/22/2024 11:19 AM UTILITY PIPE LAYER 05/22/2024 Narrative [facility] ACCOUNT BILL - 05/22/2024 4:09 PM UTILITY PIPE LAYER Performed at: [address] [place] [address] [place] [id number] Administrative Services Manager: Geovanny Garza MD, Phone: [phone] Michael Membreno MD LAB - URINE CHEMISTRY ORDER RONALD Final Result [facility] ACCOUNT BILL [address] [place] [address] * (ABNORMAL) COMPREHENSIVE METABOLIC PANEL (05/22/2024 11:19 AM UTILITY PIPE LAYER) Glucose 165(H) 70 - 99 mg/dL [facility] ACCOUNT BILL BUN 19 7 - 26 mg/dL [facility] ACCOUNT BILL Creatinine 1.34(H) 0.72 - 1.25 mg/dL [facility] ACCOUNT BILL eGFR by CKD-EPI 63(L) >=90 mL/min/1.7 3 m2 [facility] ACCOUNT BILL Sodium 142 136 - 145 mmol/L [facility] ACCOUNT BILL Potassium 4.0 3.5 - 5.1 mmol/L [facility] ACCOUNT BILL Chloride 105 98 - 107 mmol/L [facility] ACCOUNT BILL CO2 32(H) 22 - 29 mmol/L [facility] ACCOUNT BILL Calcium 9.0 8.4 - 10.4 mg/dL [facility] ACCOUNT BILL Protein Total 7.8 6.4 - 8.3 gm/dL [facility] ACCOUNT BILL Albumin 3.6 3.4 - 5.0 gm/dL [facility] ACCOUNT BILL Bilirubin Total 0.5 0.2 - 1.2 mg/dL [facility] ACCOUNT BILL Alkaline Phosphatase 98 40 - 150 U/L [facility] ACCOUNT BILL AST 19 5 - 34 U/L [facility] ACCOUNT BILL ALT 18 0 - 55 U/L [facility] ACCOUNT BILL Blood BLOOD SPECIMEN / Unknown 05/22/2024 11:19 AM UTILITY PIPE LAYER 05/22/2024 Narrative [facility] ACCOUNT BILL - 05/22/2024 4:09 PM UTILITY PIPE LAYER Performed at: [address] [place] [id number] Administrative Services Manager: Geovanny Garza MD, Phone: [phone] us Michael Membreno MD LAB - CHEMISTRY ORDERABLES Final Result [facility] ACCOUNT BILL [address] [place] [address] * [facility] DIABETES EYE EXAM (01/26/2016) us Provider Unknown HEALTH MAINTENANCE Final Result from Last 3 Months or Most Recently Relevant to Health Maintenance Insurance [facility]IC[facility] Care Teams Server Developer Relationship Specialty Start Date End Date Magdy Guzman MD [address] [place] [address] [address] [place] [id number] PCP - General Family Medicine 03/17/21 Derrick Saeed MD Referring Physician Plastic and Reconstructive Surgery 05/26/15 Partha Miles MD Radiation Oncologist Radiation Oncology 05/26/15
--- OUTSIDE RECORDS SUMMARY | 2025-04-14 14:58 | XMS_ITS | Clinical Summary ---
Author Organization [facility] Address [address] [place] [address] Phone Care Team Providers Care Fishing Vessel Deckhand Name Role Phone Magdy Guzman MD Primary Care Provider [phone] Allergies Active Allergy Reactions Criticality Noted Date Comments Ibuprofen Rash Low 10/31/2016 Lisinopril Cough Low 10/31/2019 Cough Cough Naproxen Rash Low 10/31/2016 Nsaids (Non-Steroidal Anti-Inflammatory Drug) Rash Medium 08/12/2019 Medications blood sugar diagnostic (FreeStyle Lite Strips) Strip FreeStyle Lite Strips USE 1 STRIP TO CHECK GLUCOSE 4 TIMES DAILY Active amitriptyline (ELAVIL) 25 mg tablet amitriptyline 25 mg tablet TAKE 1 TABLET BY MOUTH ONCE DAILY Active atorvastatin (LIPITOR) 80 mg tablet Take 80 mg by mouth daily at bedtime. 05/08/20 20 Active benzonatate (TESSALON) 100 mg capsule as needed Active blood sugar diagnostic Strip 06/18/20 18 Active carvediloL (COREG) 25 mg tablet carvedilol 25 mg tablet 02/12/20 20 Active cefdinir (OMNICEF) 300 mg capsule TAKE 1 CAPSULE BY MOUTH EVERY 12 HOURS 03/01/20 20 Active cholecalciferol , Vitamin D3, 125 mcg (5,000 unit) Capsule Take 5,000 Units by mouth. Active ciprofloxacin-d examethasone (CIPRODEX) 0.3-0.1 % Drops, Suspension Ciprodex 0.3 %-0.1 % ear drops,suspension Acti ve clobetasoL (TEMOVATE) 0.05 % Cream clobetasol 0.05 % topical cream Active doxycycline hyclate (VIBRAMYCIN) 100 mg tablet doxycycline hyclate 100 mg tablet Active ezetimibe (ZETIA) 10 mg tablet ezetimibe 10 mg tablet TAKE 1 TABLET BY MOUTH ONCE DAILY 06/18/20 18 Active ferrous sulfate 325 mg (65 mg iron) tablet ferrous sulfate 325 mg (65 mg iron) tablet Active flash glucose sensor Kit 02/16/20 20 Active gentamicin (GARAMYCIN) 0.3 % (3 mg/gram) ointment Gentak 0.3 % (3 mg/gram) eye ointment Active glucagon 0.5 mg/0.1 mL Auto-Injector Gvoke HypoPen 2-Pack 0.5 mg/0.1 mL subcutaneous auto-injector 02/13/20 20 Active hydrALAZINE (APRESOLINE) 100 mg Tablet tablet hydralazine 100 mg tablet TAKE 1 TABLET BY MOUTH THREE TIMES DAILY 12/25/19 20 Active hydrOXYzine HCL (ATARAX) 10 mg tablet Take 10 mg by mouth. Active insulin glulisine U-100 (APIDRA) 100 unit/mL vial Apidra U-100 Insulin 100 unit/mL subcutaneous solution Active ibuprofen (MOTRIN) 600 mg tablet ibuprofen 600 mg tablet Active Insulin Pump Cartridge Cartridge Inject 1 Patch by subcutaneous injection every other day. 02/13/20 20 Active insulin regular U-500 CONCENTRATED (HUMULIN R U-500) 500 unit/mL vial Humulin R U-500 (Concentrated) Insulin 500 unit/mL subcutaneous soln 12/19/19 18 Active isosorbide dinitrate (ISORDIL) 20 mg tablet isosorbide dinitrate 20 mg tablet TAKE 1 TABLET BY MOUTH THREE TIMES DAILY 02/12/20 20 Active ketoconazole (NIZORAL) 2 % Cream APPLY IN BETWEEN TOES ONCE DAILY UNTIL RESOLUTION 04/20/20 20 Active loratadine (CLARITIN) 10 mg tablet Take 10 mg by mouth. Active metFORMIN (GLUCOPHAGE XR) 500 mg Extended Release 24 hour tablet Take 1,000 mg by mouth. 02/28/20 19 Active methocarbamoL (ROBAXIN) 500 mg tablet methocarbamol 500 mg tablet Active neomycin-polymy jonah-dexamethaso ne (MAXITROL) 3.5mg/mL-10,000 unit/mL-0.1 % suspension ncedbiyo-ckvahjwol-i exameth 3.5 mg/mL-10,000 unit/mL-0.1% eye drops Active nutritional supplements (PEPTAMEN) Liquid Take by mouth. Activ e oxyCODONE-aceta minophen (PERCOCET) 5-325 mg tablet oxycodone-acetaminop hen 5 mg-325 mg tablet TAKE 1 TO 2 TABLETS BY MOUTH EVERY 6 HOURS NEEDED 01/28/20 20 Active polyethylene glycol 3350 (MIRALAX) 17 gram/dose Powder Take 17 Grams by mouth. Active predniSONE (DELTASONE) 20 mg tablet as needed Active pregabalin (LYRICA) 200 mg Capsule pregabalin 200 mg capsule 01/28/20 20 Active sildenafiL (VIAGRA) 25 mg tablet Viagra 25 mg tablet Active simvastatin (ZOCOR) 40 mg tablet simvastatin 40 mg tablet Active sulfamethoxazol e-trimethoprim (BACTRIM DS) 800-160 mg tablet sulfamethoxazole 800 mg-trimethoprim 160 mg tablet Active Insulin Syringe-Needle U-100 1 mL 31 gauge x 5/16 Syringe insulin syringe U-100 with needle 1 mL 31 gauge x 5/16 Activ e Tadalafil 2.5 mg Tablet Cialis 2.5 mg tablet Active tamsulosin (FLOMAX) 0.4 mg capsule tamsulosin 0.4 mg capsule TAKE 1 CAPSULE BY MOUTH ONCE DAILY 03/04/20 20 Active torsemide (DEMADEX) 20 mg tablet torsemide 20 mg tablet TAKE 2 TABLETS BY MOUTH IN THE SHIPPING ASSISTANT BEFORE BREAKFAST. MAY ALSO TAKE 1 TABLET BY MOUTH NEEDED (IN THE EVENING FOR FLUID RETENTION 01/06/20 20 Active triamcinolone acetonide (KENALOG-40) 40 mg/mL Suspension Kenalog 40 mg/mL suspension for injection Active Coenzyme Q10 400 mg Capsule daily Activ e valsartan (DIOVAN) 320 mg tablet Take 320 mg by mouth. 12/18/19 20 Active Active Problems No known active problems Social History Tobacco Use Types Packs/Day Years Used Date Smoking Tobacco: Former Sex and Gender Information Value Date Recorded Sex Assigned at Not on file Legal Sex Male 2:42 AM DIVE MASTER Gender Identity Not on file Sexual Orientation Not on file Last Filed Vital Signs Vital Sign Reading Time Taken Comments Blood Pressure - - Pulse - - Temperature - - Respiratory Rate - - Oxygen Saturation - - Inhaled Oxygen Concentration - - Weight 161.5 kg (356 lb) 05/13/2020 10:07 AM CDT Height 177.8 cm (5' 10) 05/13/2020 10:07 AM CDT Body Mass Index 51.08 05/13/2020 10:07 AM CDT Plan of Treatment Health Maintenance Due Date Last Done Comments HEPATITIS B VACCINES (1 of 3 - 19+ 3-dose series) 1988 DIABETES MICROALBUMIN ANNUAL SCREEN 04/13/2006 04/13/2005 LDL CHOLESTEROL ANNUAL 04/13/2006 04/13/2005 COLORECTAL SCREENING 2014 Colorectal Cancer Screening 2014 FIT-DNA Q 3 years 2014 FIT/FOBT Q 1 year 2014 Flex Sig/CT Colonography Q 5 years 2014 ZOSTER VACCINE (1 of 2) 2019 DIABETES ANNUAL RETINAL EXAM 04/03/2024 04/03/2023 INFLUENZA VACCINE (#1) 2025 , 05/07/2020, 05/13/2015 DIABETES HBA1C Q 6 MONTHS 09/24/20252024, 05/22/2024, 05/03/2023, Additional history exists DIABETES ANNUAL FOOT EXAM 03/27/2026 03/27/2025 DTAP/TDAP/TD VACCINES (2 - T d or Tdap) 05/15/2027 05/15/2017 Insurance Care Teams Fishing Vessel Deckhand Relationship Specialty Start Date End Date Magdy Guzman MD PCP - General Family Practice 05/13/20
--- OUTSIDE RECORDS SUMMARY | 2025-04-14 14:58 | XMS_ITS | Encounter Summary ---
Author Organization [facility] Address [address] [place] [address] Phone Care Team Providers Care Public Affairs Manager Name Role Phone Wendy Hernandez MD Unavailable [phone] Shahzad Nair MD Primary Care Provider [phone] Joana Christopher RN Unavailable Unavailable Fabian Duran MD Unavailable Nilda Henley RN Unavailable [phone] Joana Christopher RN Unavailable Unavailable Joana Christopher RN Unavailable Unavailable [facility], [facility] Primary Care Pro vider Poonam Collins RN Unavailable Unavailab Maisha Crandall Unavailable Unavailable Encounter Details Date Type Department Care Team (Latest Contact Info) Description 04/25/2022 Orders Only [facility] Scanning, Provider Social History Tobacco Use Types Packs/Day Years Used Date Smoking Tobacco: Former Smokeless Tobacco: Never Alcohol Use Standard Drinks/Week Comments Yes 0 (1 standard drink = 0.6 oz pur e alcohol) Occasionally AUDIT-C Answer Date Recorded Q1: How often do you have a drink containing alc ohol? Monthly or less 10/29/2021 Q2: How many drinks containi ng alcohol do you have on a typical day when you are drinking? 1 or 2 10/29/2021 Frequency of Binge Drinking Not on file 10/15 Sex and Gender Information Value Date Recorded Sex Assigned at Not on file Legal Sex Male 11:58 PM PERSONAL PROTECTION SPECIALIST Gender Identity Not on file Sexual Orientation Straight 07/23/2020 6: 40 AM PERSONAL PROTECTION SPECIALIST documented as of this encounter Plan of Treatment Not on file documented as of this encounter Procedures Procedure Name Priority Date/Time Associated Diagnosis Comments SCAN - LABS 04/25/2022 documented in this encounter Results * SCAN - LABS (04/25/2022) us Provider Scanning Final Result documented in this encounter Visit Diagnoses Not on filedocumented in this encounter Care Teams Public Affairs Manager Relationship Specialty Start Date End Date Shahzad Nair MD [address] [place] [address] [place] [address] PCP - General 10/29/21 04/10/24 [facility], Kashif Carter [address] [place] [address] PCP - General Genetics 04/11/24 [place] [address] [address] Surgeon Orthopedic Surgery 05/01/21 Joana Christopher, pizza delivery driverDedicated Regional Driver Cardiology 03/28/22 08/16/23 Fabian Duran MD Referring Physician Cardiology 03/28/22 Nilda Henley, RN [address] [facility] [address] [place] [id number] Dedicated Regional Driver Cardiology 03/28/22 Joana Christopher, advertisement distributor Failure Coordinator 08/03/23 4 Joana Christopher, advertisement distributor Failure Coordinator Transplant 08/16/23 Poonam Collins RN Heart Failure Coordinator Cardiology 06/20/24 Maisha Lee Primary Associate Professor Of Economics 04/03/25 documented as of this encounter
--- OUTSIDE RECORDS SUMMARY | 2025-04-14 14:58 | XMS_ITS | Encounter Summary ---
Author Organization [employer] Address [address] [place] [address] Care Team Providers Care Steam Hammer Operator Name Role Phone Magdy Guzman MD Primary Care Provider [phone] Encounter Details Date Type Department Care Team (Late st Contact Info) Description 05/27/2005 [facility] [address] [place] [address] [address]. [place], [place] [id number] Rafa Grimaldo MD Social History Tobacco Use Types Packs/Day Years Used Date Smoking Tobacco: Never Assessed Sex and Gender Information Value Date Recorded Sex Assigned at Not on file Legal Sex Male 2:42 AM SIX SIGMA BLACK BELT ENGINEER Gender Identity Not on file Sexual Orientation Not on file documented as of this encounter Plan of Treatment Not on file documented as of this encounter Visit Diagnoses Not on filedocumented in this encounter Care Teams Steam Hammer Operator Relationship Specialty Start Date End Date Magdy Guzman MD PCP - General Family Practice 05/13/20 documented as of this encounter
--- OUTSIDE RECORDS SUMMARY | 2025-04-14 14:58 | XMS_ITS | Encounter Summary ---
Author Organization [facility] Address [address] [place] [address] Phone Care Team Providers Care Plugman Name Role Phone Shahzad Nair MD Primary Care Provider [phone] Magdy Guzman MD Primary Care Provider [phone] Shahzad Nair MD Primary Care Provider [phone] Wendy Hernandez MD Unavailable [phone] Shahzad Nair MD Primary Care Provider [phone] Joana Christopher RN Unavailable Unavailable Fabian Duran MD Unavailable [phone] Nilda Henley RN Unavailable [phone] Joana Christopher RN Unavailable Unavailable Joana Christopher RN Unavailable Unavailable [facility] Primary Care Pro vider Poonam Collins RN Unavailable Unavailab Maisha Crandall Unavailable Unavailable Encounter Details Date Type Department Care Team (Late st Contact Info) Description 05/15/2019 Telephone [facility] Cardiology [address] 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 Gender Identity Not on file Sexual Orientation Straight 07/23/2020 6: 40 AM LAND LAW EXAMINER documented as of this encounter Plan of Treatment Not on file documented as of this encounter Visit Diagnoses Not on filedocumented in this encounter Care Teams Plugman Relationship Specialty Start Date End Date Shahzad Nair MD [address] [place] [address] [place] [address] PCP - General 12/06/17 12/18/19 Magdy Guzman MD [address] [place] [address] [place] [address] PCP - General Family Medicine 12/19/19 12/24/19 Shahzad Nair MD [address] [place] [address] [place] [address] PCP - General 12/25/19 10/28/21 Shahzad Nair MD [address] [place] [address] [place] [address] PCP - General 10/29/21 [facility] [place] [address] PCP - General Genetics 04/11/24 [place] [address] [place] [address] Surgeon Orthopedic Surgery 05/01/21 Joana Christopher, fountain helperData Warehousing Manager Cardiology 03/28/22 08/16/23 Fabian Duran MD Referring Physician Cardiology 03/28/22 Nilda Henley, RN [address] [place] [address] Data Warehousing Manager Cardiology 03/28/22 Joana Christopher, public speaking coach Failure Coordinator 08/03/23 4 Joana Christopher, public speaking coach Failure Coordinator Transplant 08/16/23 Poonam Collins, public speaking coach Failure Coordinator Cardiology 06/20/24 Maisha Lee Primary Environmental Field Services Technician 04/03/25 documented as of this encounter
--- OUTSIDE RECORDS SUMMARY | 2025-04-14 14:58 | XMS_ITS | Encounter Summary ---
Author Organization [employer] Address [address] [place] [address] Care Team Providers Care Electrician Apprentice Name Role Phone Magdy Guzman MD Primary Care Provider [phone] Encounter Details Date Type Department Care Team (Late st Contact Info) Description 04/13/2005 Outpatient Historical [facility] Endocrinology & Diabetes Management 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
--- OUTSIDE RECORDS SUMMARY | 2025-04-14 14:58 | XMS_ITS | Encounter Summary ---
Author Organization [facility] Address [address] [place] [address] Phone Care Team Providers Care Band Attacher Name Role Phone Wendy Hernandez MD Unavailable [phone] Shahzad Nair MD Primary Care Provider [phone] Joana Christopher RN Unavailable Unavailable Fabian Duran MD Unavailable [phone] Nilda Henley RN Unavailable Joana Christopher RN Unavailable Unavailable Joana Christopher RN Unavailable Unavailable [facility] Primary Care Pro vider Poonam Collins RN Unavailable Unavailab Maisha Crandall Unavailable Unavailable Encounter Details Date Type Department Care Team (Late st Contact Info) Description 06/26/2023 Telephone [facility] Medicine Cardiology [address] [facility] 8th [place] [address] [place] [address] Fabian Duran MD [address] [facility] [address] [place] [address] Social History Tobacco Use Types Packs/Day Years [...] of Binge Drinking Not on file 10/15 Personal Safety Answer Date Recorded Have you ever been in or are you currently in a harmful physical or emotional relationship or is someone making you feel afraid or unsafe? Denies 01/26/2023 Sex and Gender Information Value Date Recorded Sex Assigned at Not on file Legal Sex Male 11:58 PM RESPIRATORY THERAPY AIDE Gender Identity Not on file Sexual Orientation Straight 07/23/2020 6: 40 AM RESPIRATORY THERAPY AIDE documented as of this encounter Plan of Treatment Not on file documented as of this encounter Visit Diagnoses Not on filedocumented in this encounter Care Teams Band Attacher Relationship Specialty Start Date End Date Shahzad Nair MD [address] [place] [address] [place] [address] PCP - General 10/29/21 04/10/24 [facility] Kashif Carter [address] [place] [address] PCP - General Genetics 04/11/24 [place] [address] [address] Surgeon Orthopedic Surgery 05/01/21 Joana Christopher, roll over press operatorElectrophysiologist Cardiology 03/28/22 08/16/23 Fabian Duran MD Referring Physician Cardiology 03/28/22 Nilda Henley, DANIELLE [address] [address] Electrophysiologist Cardiology 03/28/22 Joana Christopher, service writer advisor Failure Coordinator 08/03/23 4 Joana Christopher, service writer advisor Failure Coordinator Transplant 08/16/23 Poonam Collins, service writer advisor Failure Coordinator Cardiology 06/20/24 Maisha Lee Primary Concrete Stone Fabricating Supervisor 04/03/25 documented as of this encounter
--- OUTSIDE RECORDS SUMMARY | 2025-04-14 14:58 | XMS_ITS | Encounter Summary ---
Author Organization [employer] Address [address] [place] [address] Care Team Providers Care Fixed Route Bus Operator Name Role Phone Magdy Guzman MD Primary Care Provider [phone] Encounter Details Date Type Department Care Team (Late st Contact Info) Description 10/18/2005 [facility]patient [facility] [address] 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
--- OUTSIDE RECORDS SUMMARY | 2025-04-14 14:58 | XMS_ITS | Clinical Summary ---
Author Organization [facility] Address [address] [place] [address] Phone Care Team Providers Care Pt Sitter Name Role Phone Magdy Guzman MD Primary Care Provider Social History Tobacco Use Types Packs/Day Years Used Date Smoking Tobacco: Never Assessed Sex and Gender Information Value Date Recorded Sex Assigned at Not on file Legal Sex Male 7:38 AM EDUCATIONAL DIAGNOSTICIAN Gender Identity Not on file Sexual Orientation Not on file Plan of Treatment Health Maintenance Due Date Last Done Comments Hepatitis C Virus (HCV) Screening 1969 Hepatitis B Immunization (1 of 3 - 19+ 3-dose series) 1988 Cologuard 2014 Colonoscopy 2014 Colorectal Cancer Screening 2014 Immunochemical Fecal Occult Blood 2014 Pneumococcal Immunization (5 0+ years) (1 of 1 - PCV) 2019 Zoster Immunization (1 of 2) 2019 Influenza Immunization (#1) 03/17/202504/17, 05/13/2015 SARS-COV-2 Immunization ( season) 2025 05/20/2021, 10/21/2020 Respiratory Syncytial Virus (RSV) Immunization (Adult) (1 - 1-dose 75+ series) 2044 DTaP/Tdap/Td Immunization Discontinued 05/15/2017 TdaP Immunization Completed 05/15/2017 Human Papillomavirus (HPV) Immunization Aged Out No longer eligible based on patient's age to complete this topic Meningococcal Immunization (ACWY) Aged Out No longer eligible based on patient's age to complete this topic Rotavirus Immunization Aged Out No lo nger eligible based on patient's age to complete this topic Insurance [employer] Care Teams Pt Sitter Relationship Specialty Start Date End Date Magdy Guzman MD [facility] [place] [address] PCP - General Director Financial Analysis 07/28/20
--- OUTSIDE RECORDS SUMMARY | 2025-04-14 14:58 | XMS_ITS | Encounter Summary ---
Author Organization [facility] Address [address] [place] [address] Phone Care Team Providers Care Printer Apprentice Name Role Phone Wendy Hernandez MD Unavailable [phone] Shahzad Nair MD Primary Care Provider [phone] Joana Christopher RN Unavailable Unavailable Fabian Duran MD Unavailable [phone] Nilda Henley RN Unavailable [phone] Joana Christopher RN Unavailable Unavailable Joana Christopher RN Unavailable Unavailable [facility] Primary Care Pro vider Poonam Collins RN Unavailable Unavailab Maisha Crandall Unavailable Unavailable Encounter Details Date Type Department Care Team (Latest Contact Info) Description 06/20/2022 Orders Only [facility] Scanning, Provider [...] on file Legal Sex Male 11:58 PM PESTICIDE APPLICATOR Gender Identity Not on file Sexual Orientation Straight 07/23/2020 6: 40 AM PESTICIDE APPLICATOR documented as of this encounter Plan of Treatment Not on file documented as of this encounter Procedures Procedure Name Priority Date/Time Associated Diagnosis Comments SCAN - LABS 06/20/2022 documented in this encounter Results * SCAN - LABS (06/20/2022) us Provider Scanning Edited Result - Final documented in this encounter Visit Diagnoses Not on filedocumented in this encounter Care Teams Printer Apprentice Relationship Specialty Start Date End Date Shahzad Nair MD [address] [place] [address] [place] [address] PCP - General 10/29/21 04/10/24 [facility], Kashif Poseyran [address] [place] [address] PCP - General Genetics 04/11/24 [place] [address] [address] Surgeon Orthopedic Surgery 05/01/21 Joana Christopher, banking supervisorApple Sorter Cardiology 03/28/22 08/16/23 Fabian Duran MD Referring Physician Cardiology 03/28/22 Nilda Henley, RN [address] [facility] [address] [place] [address] Apple Sorter Cardiology 03/28/22 Joana Christopher, rides attendant Failure Coordinator 08/03/23 4 Joana Christopher, rides attendant Failure Coordinator Transplant 08/16/23 Poonam Collins rides attendant Failure Coordinator Cardiology 06/20/24 Maisha Lee Primary Metal Stud Framer 04/03/25 documented as of this encounter
--- OUTSIDE RECORDS SUMMARY | 2025-04-14 14:58 | XMS_ITS | Encounter Summary ---
Author Organization [employer] Address [address] [place] [address] Care Team Providers Care Metal Stamper Name Role Phone Magdy Guzman MD Primary Care Provider [phone] Encounter Details Date Type Department Care Team (Late st Contact Info) Description 07/25/2005 Outpatient [facility] [address] 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
--- OUTSIDE RECORDS SUMMARY | 2025-04-14 14:58 | XMS_ITS | Encounter Summary ---
Author Organization [employer] Address [address] [place] [address] Care Team Providers Care Lockstitch Back Maker Name Role Phone Magdy Guzman MD Primary Care Provider [phone] Encounter Details Date Type Department Care Team (Late st Contact Info) Description 11/24/2004 Outpatient Historical [facility] Endocrinology & Diabetes Management 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
--- OUTSIDE RECORDS SUMMARY | 2025-04-14 14:58 | XMS_ITS | Clinical Summary ---
Author Organization [facility] Address [address] [place] [id number] Care Team Providers Care Drawer Maker Name Role Phone Wendy Hernandez MD Unavailable [phone] Fabian Duran MD Unavailable [phone] Joana Christopher RN Unavailable Unavailable [facility] Primary Care Pro vider Poonam Collins RN Unavailable Unavailab Maisha Crandall Unavailable Unavailable Allergies Active Allergy Reactions Criticality Noted Date Comments Cetirizine Unknown,Hives,Other (See comments) Medium 10/31/2016 Ibuprofen Unknown,Rash Medium 10/31/2016 Levofloxacin Rash,Anaphylaxis High 07/28/2022 Lisinopril Cough Low 10/31/2019 Naproxen Unknown,Rash Medium 10/31/2016 Nsaids (Non-Steroidal Anti-Inflammatory Drug) Rash,Unknown,Hives Medium 12/06/2017 Omeprazole Itching Low 01/31/2022 Medications atorvastatin (LIPITOR) 80 mg tablet TAKE 1 TABLET BY MOUTH AT BEDTIME 05/28/20 18 Active FREESTYLE LITE STRIPS strip 06/18/20 18 Active ezetimibe (ZETIA) 10 mg tablet Take by mouth daily 06/18/20 18 Active insulin regular U-500 (HumuLIN R) 500 unit/mL CONCENTRATED vial for injectionIndica tions:Diabetes Mellitus with Severe Insulin Resistance USE 300 UNITS VIA PUMP DAILY 12/19/19 18 Active clobetasoL (TEMOVATE) 0.05 % cream Apply 1 application topically 2 (two) times a day as needed Active ferrous sulfate 325 mg (65 mg of elemental iron) tablet Take by mouth daily with breakfast Active cholecalciferol (VITAMIN D-3) 5,000 unit capsule Take 1 capsule (5,000 Units total) by mouth daily Active alpha lipoic acid 300 mg capsule 2 capsules (600 mg total) daily Active FreeStyle Johanny 14 Day Sensor kit 02/16/20 20 Active Omnipod Insulin Refill cartridge 02/13/20 20 Active pregabalin (LYRICA) 200 mg capsule Take 1 capsule (200 mg total) by mouth 3 (three) times a day 200mg in AM, 200mg NOON, 400mg HS 02/24/20 20 Active amitriptyline (ELAVIL) 25 mg tablet Take 1 tablet (25 mg total) by mouth nightly as needed Active coenzyme Q10 400 mg capsule daily Activ e polyethylene glycol (MIRALAX) 17 gram packetIndicatio ns:constipation Take 1 packet (17 g total) by mouth 2 (two) times a day as needed Active ammonium lactate (AMLACTIN) 12 % cream APPLY TO THICK ROUGH SKIN ON THE LEGS NECK AND ARM PITS 10/16/19 21 Active traMADoL (ULTRAM) 50 mg tablet Take 2 tablets (100 mg total) by mouth 3 (three) times a day Active HYDROcodone-ling taminophen (NORCO) 7.5-325 mg per tablet as needed 04/29/20 21 Active montelukast (SINGULAIR) 10 mg tablet montelukast 10 mg tablet TAKE 1 TABLET BY MOUTH ONCE DAILY Active isosorbide dinitrate (ISORDIL) 20 mg tablet Take 1 tablet (20 mg total) by mouth 3 (three) times a day 270 tablet 3 04/18/20 22 Active cyclobenzaprine (FLEXERIL) 10 mg tablet cyclobenzaprine 10 mg tablet TAKE 1 TABLET BY MOUTH AT BEDTIME Active omeprazole (PriLOSEC) 40 mg capsule Take 1 capsule (40 mg total) by mouth daily 08/31/19 23 Active TRUEplus Glucose 4 gram chewable tablet 12/26/19 23 Active BD Insulin Syringe U-500 1/2 mL 31 gauge x 15/64 syringe 11/04/19 23 Active torsemide (DEMADEX) 20 mg tablet Take 1 tablet (20 mg total) by mouth 2 (two) times a day Take three times daily on Monday and Fridays. 204 tablet 3 06/27/20 23 Active azaTHIOprine (IMURAN) 50 mg tablet TAKE 2 TO 3 TABLETS BY MOUTH ONCE DAILY 07/11/20 23 Active insulin lispro (HumaLOG) 200 unit/mL (3 mL) pen for injection INJECT BASAL/BOLUS INSULIN UNDER THE SKIN VIA CONTINUOUS INFUSION BY PUMP FOR DIABETES * DISCARD 28 DAYS AFTER OPENING* 07/13/20 23 Active semaglutide (Ozempic) 0.25 mg or 0.5 mg (2 mg/3 mL) pen injector injection Inject 2 mg under the skin every 7 days Active carvediloL (COREG) 25 mg tablet TAKE 2 TABLETS BY MOUTH TWICE DAILY WITH MEALS 360 tablet 01/29/20 24 Active leflunomide (ARAVA) 20 mg tablet Take 1 tablet (20 mg total) by mouth daily 02/06/20 24 Active multivitamin tabletIndicatio ns:Vitamin Deficiency Prevention Take 1 tablet by mouth Active Dexcom G6 Sensor device 03/04/20 24 Active losartan (COZAAR) 25 mg tablet Take 0.5 tablets (12.5 mg total) by mouth daily 15 tablet 11 02/05/20 25 026 Active hydrALAZINE (APRESOLINE) 100 mg tablet Take 1 tablet (100 mg total) by mouth 3 (three) times a day 90 tablet 1 04/02/20 25 025 Active hydrALAZINE (APRESOLINE) 100 mg tablet Take 1 tablet (100 mg total) by mouth 3 (three) times a day 270 tablet 3 04/18/20 22 025 Discontin ued(Reord er) Active Problems Problem Noted Date Diagnosed Date Vitreous hemorrhage of right eye 01/25/2023 CKD (chronic kidney disease) stage 2, GFR 60-89 ml/min 09/13/2022 Preop testing 04/30/2021 Stage 3a chronic kidney disease 07/02/2020 Tinea pedis due to trichophyton 04/20/2020 Pressure injury of deep tissue 04/20/2020 Acute cystitis without hematuria 03/12/2020 Acute otitis externa 02/28/2020 Biceps tendinitis 02/28/2020 Cardiomyopathy, ischemic 01/16/2020 RITIKA (acute kidney injury) 12/17/2019 Assessment & Plan (12/25/2019 12:04 PM CDT): Creatinine stable at 1.6 Chronic kidney disease (CKD) and acute kidney injury (RITIKA) are independent risk factors for hypoglycemia, and augments the risk of low blood glucose in patients with diabetes Follow on renal function as outpatient Type 2 diabetes mellitus wit h chronic kidney disease, with long-term current use of insulin 12/15/[address] 12/14/2019 Assessment & Plan (12/15/2019 10:09 PM CDT): Insulin pumps may be associated with adverse events, please consider the followin) Use must comply with appropriate institutional policies and procedures 2) Patient must sign insulin pump agreement and staff must provide pump log to document timing and amount of insulin administered 3) Patient must have physical and mental capacity for pump self-management 4) Primary Team must place initial pump orders in Epic 5) Consult Endocrinology for pump settings, parameter adjustments, and management 6) Confirm final pump settings with Endocrinology before discharging patient home on pump If above stipulations cannot be met; disallow pump, convert to basal-bolus SQ regimen Assessment & Plan (12/14/2019 2:55 PM CDT): Insulin pumps may be associated with adverse events, please consider the followin) Use must comply with appropriate institutional policies and procedures 2) Patient must sign insulin pump agreement and staff must provide pump log to document timing and amount of insulin administered 3) Patient must have physical and mental capacity for pump self-management 4) Primary Team must place initial pump orders in Epic 5) Consult Endocrinology for pump settings, parameter adjustments, and management 6) Confirm final pump settings with Endocrinology before discharging patient home on pump If above stipulations cannot be met; disallow pump, convert to basal-bolus SQ regimen High risk medication use 12/14/2019 Assessment & Plan (12/15/2019 10:09 PM CDT): This patent has high risk medication use. He requires an intensive, high risk insulin regimen, with intensive glycemic monitoring. He has an increased risk of hypoglycemia due to his multifactorial illness & variable PO intake. Management per above. Assessment & Plan (12/14/2019 3:00 PM CDT): This patent has high risk medication use U500 concentrated insulin with continuous insulin pump. He requires an intensive, high risk insulin regimen, with intensive glycemic monitoring. He has an increased risk of hypoglycemia due to his multifactorial illness & variable PO intake. Management per above. CrCl: 80 ml/min with serum Cr 1.14 (baseline) - monitor in setting loop diuretics Neuropathy 12/13/2019 Assessment & Plan (12/14/2019 2:59 PM CDT): Diabetic neuropathy treated with Lyrica Chronic systolic heart failure 12/13/2019 Assessment & Plan (12/25/2019 12:05 PM CDT): Managed by cardiology S/p Diuresis and cardiac cath Anasarca 12/13/2019 Overview (12/23/2019): Added automatically from request for surgery [id number] Acanthosis nigricans 09/23/2019 Acute urticaria 09/23/2019 Enlarged prostate with urinary retention 020 Granuloma annulare 09/23/2019 Hidradenitis suppurativa 09/23/2019 Low back pain 09/23/2019 Microscopic hematuria 09/23/2019 Osteoarthritis 09/23/2019 Pruritic disorder 09/23/2019 Upper respiratory infection 09/23/2019 Diabetes mellitus 09/23/2019 Hypertension 09/23/2019 Anemia in stage 3a chronic kidney disease 2019 Persistent proteinuria 11/13/2018 Localized edema 11/13/2018 Dyslipidemia 11/06/2017 Insulin pump status 10/31/2016 Organic impotence 11/17/2015 Hypertension, essential 10/27/2015 Hypercholesterolemia 10/27/2015 Morbid obesity 10/27/2015 Assessment & Plan (12/20/2019 7:42 PM CDT): Obesity complicates the management of type 2 diabetes by increasing insulin resistance and glucose intolerance Class 3 BMI >40 kg/m2 with related comorbidities: ANMOL (CPAP adherent), asthma, hypertension, hyperlipidemia, diabetes, NAFLD, GERD, OA ANMOL (obstructive sleep apnea) 10/27/2015 Diabetes mellitus type II, c ontrolled, with no complications 10/27/2015 Diabetes mellitus type 2 with complications, unc ontrolled 02/24/2015 Assessment & Plan (12/25/2019 12:01 PM CDT): 49 y.o. male with type 2 diabetes mellitus, 20 years, poorly controlled, hemoglobin A1c 8.7%, on insulin pump and concentrated U500 insulin, complicated by diabetic retinopathy, peripheral neuropathy, nephropathy, peripheral vascular disease, hypertension, hyperlipidemia, and morbid obesity (BMI 50), was admitted for shortness of breath and lower extremity edema. HgbA1C = 8.8% this admission Carbohydrate consistent diet S/p diuresis and cardiac cath. Insulin pump adjusted due to cellars supervisor hypoglycemia when NPO for cath. Patient will be discharged home today Recommendations: Resumehome Metformin on discharge Insulin Pump ON and FUNCTIONING Patient is mentally and physically capable of operating insulin pump Continue pump and basal-bolus dosing as shown below: Pump model: Omnipod with [employer] Johanny CGM Insulin type: Humalog U500 concentrated 24 hr total basal: 24.4 units (122 units U100) Basal Rate Settings: 0000 - 0800: 0.60 units/hr (3.00 units/hr U100) reduced from initial dose of 0.75 units/hr (3.75 units/hr U100) 0800 - 1200: 1.2 units/hr (6 units/hr U100) 1200 - 0000: 1.2 units/hr (6 units/hr U100) Bolus: 10 units per meal ( 50 units U100). Discharge Planning No diabetes education (CDE) referral needed prior to discharge Anticipate discharge on home insulin pump at current settings, can restart Metformin after discharge Patient will require outpatient Endocrinology follow-up upon discharge; Dr. Michael Membreno (patient state he has appointment next month) Assessment & Plan (12/14/2019 2:56 PM CDT): 49 y.o. male with type 2 diabetes mellitus, 20 years, poorly controlled, hemoglobin A1c 8.7%, on insulin pump and concentrated U500 insulin, complicated by diabetic retinopathy, peripheral neuropathy, nephropathy, peripheral vascular disease, hypertension, hyperlipidemia, and morbid obesity (BMI 50), was admitted for shortness of breath and lower extremity edema. HgbA1C = 8.8% this admission BG last 24 hrs in-hospital: 250-300 mg/dl No episodes of hypoglycemia Carbohydrate consistent diet Recommendations: HOLD home Metformin while inpatient Insulin Pump ON and FUNCTIONING Patient is mentally and physically capable of operating insulin pump Continue with home basal settings: Pump model: Omnipod with Freestyle Johanny CGM Insulin type: Humalog U500 concentrated 24 hr total basal: 23.2 units (116 units U100) Basal Rate Settings: 0000 - 8000: 0.8 units/hr (4 units/hr U100) 0800 - 1200: 1.2 units/hr (6 units/hr U100) 1200 - 0000: 1.0 units/hr (5 units/hr U100) Bolus: 7 units per meal (35 units/hr U100) Discharge Planning No diabetes education (CDE) referral needed prior to discharge Anticipate discharge on home insulin pump at current settings Patient will require outpatient Endocrinology follow-up upon discharge; Dr. Michael Membreno Encounters Date Type Department Care Team Description 04/02/2025 Telephone [facility] Cardiology [address] [place] [address] [place] [address] Fabian Duran MD 04/02/2025 Telephone [facility] Cardiology [address] [place] [address] [place] [address] Fabian Duran MD 01/22/2025 3:40 PM CDT Office Visit [facility] Nephrology [facility] [facility] [address] [place] [address] [place] [address] Annette Loco MD CKD (chronic kidney disease) stage 2, GFR 60-89 ml/min (Primary Dx); Stage 2 chronic kidney disease; Persistent proteinuria; Hypertension, essential from Last 3 Months Immunizations Immunization Administration Dates Next Due Influenza, Quadrivalent, Spl it, Preservative Free, Intramuscular 05/02/2021 Influenza, Trivalent, IM (MDV) 05/13/2015 Inhibitex (J&J) SARS-CoV-2 Vaccination 10/21/2020 Tdap 05/15/2017 Surgical History Surgery Date Site/Laterality Comments MI BIOPSY BONE TROCAR/NEEDLE SUPERFICIAL Biopsy Bone - (Added by TW Conv) MI TONSILLECTOMY PRIMARY/SEC ONDARY <AGE 12 Tonsillectomy - (Added by TW Conv) FRACTURE SURGERY Left leg KELOID EXCISION JOINT REPLACEMENT Left knee Medical History Medical History Date Comments Hyperlipidemia Hyperlipidemia Personal history of diseases of skin or subcutaneous tissue History of keloid of skin - (Added by Conv) Osteomyelitis Osteomyelitis of arm - (Added by Conv) Heart failure Poor circulation Hypertension Peripheral neuropathy Osteoarthritis Type 2 diabetes mellitus BPH (benign prostatic hyperplasia) Sleep apnea Hard to intubate CHF (congestive heart failure) (HCC) COPD (chronic obstructive pu lmonary disease) Family History Medical History Relation Name Comments Asthma Brother Family history of asthma - (Added by TW Conv) Diabetes Father Family history of diabetes mellitus - (Added by Conv) Diabetes type II Father Diabetes me llitus type 2; Cause of : Diabetes mellitus type 2 Diabetes Mother Family history of diabetes mellitus - (Added by Conv) Diabetes type II Mother Diabetes me llitus type 2; Arthritis Other Heart disease Other Hypertension Other Hyperthyroidism Sister Family histo ry of hyperthyroidism - (Added by Conv) Relation Name Status Comments Brother Father Mother Other Sister Social History Tobacco Use Types Packs/Day Years Used Date Smoking Tobacco: Former Smokeless Tobacco: Never Tobacco Cessation:Counseling Given: Not Answered Alcohol Use Standard Drinks/Week Comments Yes 0 [...] on file Legal Sex Male 11:58 PM UX LEAD Gender Identity Not on file Sexual Orientation Straight 07/23/2020 6: 40 AM UX LEAD Obstetrics History Last Filed Vital Signs Vital Sign Reading Time Taken Comments Blood Pressure 142/71 01/22/2025 3:56 PM CDT Pulse 102 01/22/2025 3:56 PM CDT Temperature 36.8 C (98.3 F) 01/22/2025 3:56 PM CDT Respiratory Rate 14 01/26/2023 3:00 PM CDT Oxygen Saturation 96% 04/11/2024 1:33 PM CDT Inhaled Oxygen Concentration - - Weight 160.8 kg (354 lb 9.6 oz) 01/22/2025 3:56 PM CDT Height 177.8 cm (5' 10) 01/22/2025 3:56 PM CDT Body Mass Index 50.88 01/22/2025 3:56 PM CDT Plan of Treatment Health Maintenance Due Date Last Done Comments Albumin Creatinine Ratio, Urine 1969 Colon Cancer Screening-Colonoscopy 1969 Depression Screening 1969 Prostate Cancer Screening-PSA 1969 Dilated Eye Exam 1969 Foot Exam 1969 Hepatitis B Screening 1987 Regular Well Visit/Exam 18-64 1987 Pneumococcal vaccine <65 (1 of 2 - PCV) 1988 Hemoglobin A1C 02/22/2023 08/25/2022, 09/15, 06/16/2021, Additional history exists Covid-19 Vaccine (3 - 2024-2 6 season) 2025 05/20/2021, 10/21/2020 Lipid Panel 05/22/2025 05/22/2024, 02/0 03/2023, 09/24/2021, Additional history exists eGFR 01/20/2026 01/20/2025, 03/18, 04/11/2024, Additional history exists DTaP/Tdap/Td Vaccine (3 - Td or Tdap) 05/02/2034 05/02/2024, 05/15/2017 Hepatitis C Screening Completed 07/12/2018 Zoster Vaccine Completed 05/02/2024, 11/06/2023 Influenza Vaccine Completed 03/14/2025, , 04/21/2023, Additional history exists Medical Devices Implanted Type Area Grinder Set Up Operator Thread Tool Device Identifier Shelf Expiration Date Model / Serial / Lot [employer] Inc [id number] Palacos R+G High Viscosity Cement Bone Gentamicin Arthroplasty - [id number] Implanted:Qty: 1 on 04/30/2021 by Wendy Hernandez MD at [facility] Left: Knee [employer] 09/14/2023 [id number] / / [id number] [employer] [id number] Palacos R+G High Viscosity Cement Bone Gentamicin Arthroplasty - [id number] Implanted:Qty: 1 on 04/30/2021 by Wendy Hernandez MD at [facility] Left: Knee [employer] 09/14/2023 [id number] / / [id number] [employer] [id number] Vanguard 67.5mm Cruciate Retaining Cemented Primary Knee Left - [id number] Implanted:Qty: 1 on 04/30/2021 by Wendy Hernandez MD at [facility] Left: Knee [employer] [id number] 01/07/2029 [id number] / / [id number] [employer] [id number] 79mm I Beam Knee Tray Tibial Cocr - [id number] Implanted:Qty: 1 on 04/30/2021 by Wendy Hernandez MD at [facility] Left: Knee [employer] 11/04/2030 [id number] / / [id number] [employer] [id number] Ascent 34mm 1 Peg Wire Knee Anterior Posterior Component Patellar - [id number] Implanted:Qty: 1 on 04/30/2021 by Wenyd Hernandez MD at [facility] Left: Knee [employer] [id number] 03/29/2026 [id number] / / [id number] [employer] [id number] Vanguard [id number] Anterior Stabilize Inlay Knee 0d Bearing - [id number] Implanted:Qty: 1 on 04/30/2021 by Wendy Hernandez MD at [facility] Left: Knee [employer] [id number] 12/23/2025 [id number] / / [id number] [employer] 79mm I Beam Knee Tray Tibial Cocr [id number] - [id number] Implanted:Qty: 1 on 10/29/2021 by Wendy Hernandez MD at [facility] Right: Knee [employer] 03/15/2031 [id number] / / [id number] [employer] Vanguard 70mm Cruciate Retaining Cemented Primary Knee Right [id number] - [id number] Implanted:Qty: 1 on 10/29/2021 by Wendy Hernandez MD at [facility] Right: Knee [employer] [id number] 01/26/2031 [id number] / / [id number] [employer] [id number] Anterior Stabilize Inlay Knee 0d Bearing - [id number] Implanted:Qty: 1 on 10/29/2021 by Wnedy Hernandez MD at [facility] Right: Knee [employer] [id number] 06/23/2026 [id number] / / [id number] [employer] [id number] Palacos R High Viscosity Cement 40gm Bone Green - [id number] Implanted:Qty: 1 on 10/29/2021 by Wendy Hernandez MD at [facility] Right: Knee [employer] 11/13/2024 [id number] / / [id number] [employer] [id number] Palacos R High Viscosity Cement 40gm Bone Green - [id number] Implanted:Qty: 1 on 10/29/2021 by Wendy Hernandez MD at [facility] Right: Knee [employer] 11/13/2024 [id number] / / [id number] [employer] Ascent 37mm 1 Peg Wire Knee Anterior Posterior Component Patellar [id number] - [id number] Implanted:Qty: 1 on 10/29/2021 by Wendy Hernandez MD at [facility] Right: Knee [employer] [id number] 12/04/2025 [id number] / / [id number] Procedures Procedure Name Priority Date/Time Associated Diagnosis Comments MICROSCOPIC EXAMINATION Routine 01/20/2025 11:51 AM CDT URINALYSIS AND REFLEX TO MICROSCOPIC Routine 01/20/2025 11:51 AM CDT Stage 3a chronic kidney disease (HCC) Hypertension, essential Persistent proteinuria Localized edema RITIKA (acute kidney injury) High risk medication use Acute cystitis without hematuria Microscopic hematuria Anemia in stage 3a chronic kidney disease (HCC) Encounter for routine adult health examination with abnormal findings Vitamin D deficiency, unspecified PTH Routine 01/20/2025 11:51 AM CDT Stage 3a chronic kidney disease (HCC) Hypertension, essential Persistent proteinuria Localized edema RITIKA (acute kidney injury) High risk medication use Acute cystitis without hematuria Microscopic hematuria Anemia in stage 3a chronic kidney disease (HCC) Encounter for routine adult health examination with abnormal findings Vitamin D deficiency, unspecified PROTEIN / CREATININE RATIO, URINE, RANDOM Routine 01/20/2025 11:51 AM CDT Stage 3a chronic kidney disease (HCC) Hypertension, essential Persistent proteinuria Localized edema RITIKA (acute kidney injury) High risk medication use Acute cystitis without hematuria Microscopic hematuria Anemia in stage 3a chronic kidney disease (HCC) Encounter for routine adult health examination with abnormal findings Vitamin D deficiency, unspecified CBC WITH AUTO DIFFERENTIAL Routine 01/20/2025 11:51 AM CDT Stage 3a chronic kidney disease (HCC) Hypertension, essential Persistent proteinuria Localized edema RITIKA (acute kidney injury) High risk medication use Acute cystitis without hematuria Microscopic hematuria Anemia in stage 3a chronic kidney disease (HCC) Encounter for routine adult health examination with abnormal findings Vitamin D deficiency, unspecified VITAMIN D 25 HYDROXY Routine 01/20/2025 11:51 AM CDT Stage 3a chronic kidney disease (HCC) Hypertension, essential Persistent proteinuria Localized edema RITIKA (acute kidney injury) High risk medication use Acute cystitis without hematuria Microscopic hematuria Anemia in stage 3a chronic kidney disease (HCC) Encounter for routine adult health examination with abnormal findings Vitamin D deficiency, unspecified IRON PROFILE W/ IBC Routine 01/20/2025 1 1:51 AM CDT Stage 3a chronic kidney disease (HCC) Hypertension, essential Persistent proteinuria Localized edema RITIKA (acute kidney injury) High risk medication use Acute cystitis without hematuria Microscopic hematuria Anemia in stage 3a chronic kidney disease (HCC) Encounter for routine adult health examination with abnormal findings Vitamin D deficiency, unspecified FERRITIN Routine 01/20/2025 11:51 AM CDT Stage 3a chronic kidney disease (HCC) Hypertension, essential Persistent proteinuria Localized edema RITIKA (acute kidney injury) High risk medication use Acute cystitis without hematuria Microscopic hematuria Anemia in stage 3a chronic kidney disease (HCC) Encounter for routine adult health examination with abnormal findings Vitamin D deficiency, unspecified RENAL FUNCTION PANEL Routine 01/20/2025 11:51 AM CDT Stage 3a chronic kidney disease (HCC) Hypertension, essential Persistent proteinuria Localized edema RITIKA (acute kidney injury) High risk medication use Acute cystitis without hematuria Microscopic hematuria Anemia in stage 3a chronic kidney disease (HCC) Encounter for routine adult health examination with abnormal findings Vitamin D deficiency, unspecified HEMOGLOBIN A1C Routine 10/11/2021 2:22 PM CDT Preop testing LIPID PANEL Routine 05/01/2021 2:07 AM CDT HEPATITIS PANEL, ACUTE Routine 07/12/2018 10:41 AM UX LEAD Proteinuria, unspecified type from Last 3 Months or Most Recently Relevant to Health Maintenance Results * Microscopic Examination (01/20/2025 11:51 AM CDT) WBC, ur None seen 0 - 5 /hpf [facility] - 01 RBC, ur 0-2 0 - 2 /hpf [facility] - 01 Epithelial cells, non-renal, ur None seen 0 - 10 /hpf [facility] - 01 Casts None seen None seen /lpf [facility] - 01 Bacteria, ur None seen None seen/Few [facility] - 01 01/20/2025 11:5 1 AM CDT 01/20/2025 Narrative [facility] - 01/21/2025 7:09 AM CDT Performed at: - [facility] [id number] Payroll Benefits Administrator: Karan Ray PhD, Phone: [phone] us Annette Loco MD LAB BLOOD ORDERABLES Final Resul t [facility] - 01 * (ABNORMAL) Iron profile w/ IBC (01/20/2025 11:51 AM CDT) Iron Bind.Cap.(TIBC) 195(L) 250 - 450 ug/dL [facility] - 01 UIBC 133 111 - 343 ug/dL [facility] - 01 Iron 62 38 - 169 ug/dL [facility] - 01 Iron saturation 32 15 - 55 % [facility] - 01 Blood 01/20/2025 11:5 1 AM CDT 01/20/2025 Narrative [facility] - 01/21/2025 8:11 AM CDT Performed at: [address] [place] [id number] Payroll Benefits Administrator: Karan Ray PhD, Phone: [phone] us Annette Loco MD LAB BLOOD ORDERABLES Final Resul t [facility] - 01 * (ABNORMAL) Urinalysis reflex to microscopic (01/20/2025 11:51 AM CDT) [facility] Signature Specific [place] 1.016 1.005 - 1.030 [facility] - 01 pH, ur 6.0 5.0 - 7.5 [facility] - 01 Color, ur Yellow Yellow [facility] - 01 Appearance, ur Clear Clear [facility] - 01 Leukocyte esterase, ur Negative Negative [facility] - 01 Protein, ur 1+(A) Negative/Tra ce [facility] - 01 Glucose, ur Negative Negative [facility] - 01 Ketones, ur Negative Negative [facility] - 01 Blood, ur Negative Negative [facility] - 01 Bilirubin, ur Negative Negative [facility] - 01 Urobilinogen, quant, ur 0.2 0.2 - 1.0 mg/dL [facility] - 01 Nitrites, ur Negative Negative [facility] - 01 Urinalysis, microscopic exam See below: [facility] - 01 Comment:Microscopic was kaykay cated and was performed. Urine 01/20/2025 11:5 1 AM CDT 01/20/2025 Narrative [facility] - 01/21/2025 7:09 AM CDT Performed at: [address] [place] [address] [id number] Payroll Benefits Administrator: Karan Ray PhD, Phone: [phone] us Annette Loco MD LAB URINE ORDERABLES Final Resul t [facility] - 01 * (ABNORMAL) CBC with auto differential (01/20/2025 11:51 AM CDT) WBC 6.5 3.4 - 10.8 x10E3/uL [facility] - 01 RBC 3.38(L) 4.14 - 5.80 x10E6/uL [facility] - 01 Hgb 10.3(L) 13.0 - 17.7 g/dL [facility] - 01 Hct 33.3(L) 37.5 - 51.0 % [facility] - 01 MCV 99(H) 79 - 97 fL [facility] - 01 MCH 30.5 26.6 - 33.0 pg [facility] - 01 MCHC 30.9(L) 31.5 - 35.7 g/dL [facility] - 01 Rdw 13.2 11.6 - 15.4 % [facility] - 01 Platelets 234 150 - 450 x10E3/uL [facility] - 01 Neutrophils pct 47 Not Estab. % [facility] - 01 Lymphs pct 30 Not Estab. % [facility] - 01 Monocytes pct 8 Not Estab. % [facility] - 01 Eosinophils pct 14 Not Estab. % [facility] - 01 Basophil pct 1 Not Estab. % [facility] - 01 Neutrophil abs 3.1 1.4 - 7.0 x10E3/uL [facility] - 01 Lymphs (Absolute) 2.0 0.7 - 3.1 x10E3/uL [facility] - 01 Monocyte abs 0.5 0.1 - 0.9 x10E3/uL [facility] - 01 Eosinophils, abs 0.9(H) 0.0 - 0.4 x10E3/uL [facility] - 01 Basophils, abs 0.0 0.0 - 0.2 x10E3/uL [facility] - 01 Immature Granulocytes 0 Not Estab. % [facility] - 01 Immature Grans (Abs) 0.0 0.0 - 0.1 x10E3/uL [facility] - 01 Blood 01/20/2025 11:5 1 AM CDT 01/20/2025 Narrative [facility] - 01/21/2025 9:10 AM CDT Performed at: [address] [place] [address] [id number] Payroll Benefits Administrator: Karan Ray PhD, Phone: [phone] us Annette Loco MD LAB BLOOD ORDERABLES Final Resul t Performing Organization Address [facility] de Phone Number [facility] - * (ABNORMAL) Protein / creatinine ratio, urine, random (01/20/2025 11:51 AM CDT) Creatinine ur 98.8 Not Estab. mg/dL [facility] - 01 Protein, ur, quant 31.5 Not Estab. mg/dL [facility] - 01 Protein/Creat Ratio 319(H) 0 - 200 mg/g creat [facility] - 01 Urine 01/20/2025 11:5 1 AM CDT 01/20/2025 Narrative [facility] - 01/21/2025 11:10 AM CDT Performed at: [address] [place] [address] [id number] Payroll Benefits Administrator: Karan Ray PhD, Phone: [phone] us Annette Loco MD LAB URINE ORDERABLES Final Resul t Performing Organization Address [facility] Phone Number [employer] [facility] - 01 * Vitamin D 25 hydroxy (01/20/2025 11:51 AM CDT) Vitamin D, 25-Hydroxy 40.3 30.0 - 100.0 ng/mL [facility] - 01 Comment: Vitamin D deficiency has been defined by the [place] of Medicine and an Endocrine Society practice guideline as a level of serum 25-OH vitamin D less than 20 ng/mL (1,2). The Endocrine Society went on to further define vitamin D insufficiency as a level between 21 and 29 ng/mL (2). 1. IOM ([place] of Medicine). 2010. Dietary reference intakes for calcium and D. [place]: The National Academies Press. 2. Bushra MF, Jerzy CASSIDY, SophiaAlfa LEYVA et al. Evaluation, treatment, and prevention of vitamin D deficiency: an Endocrine Society clinical practice guideline. JCEM. 2010; 96(7):1911-30. Blood 01/20/2025 11:5 1 AM CDT 01/20/2025 Narrative [facility] - 01/21/2025 8:11 AM CDT Performed at: [address] [place] [address] [id number] Payroll Benefits Administrator: Karan Ray PhD, Phone: [phone] us Annette Loco MD LAB BLOOD ORDERABLES Final Resul t Performing Organization Address [facility] Co de Phone Number [facility] - * PTH (01/20/2025 11:51 AM CDT) PTH Intact 30 15 - 65 pg/mL [facility] - 01 Blood 01/20/2025 11:5 1 AM CDT 01/20/2025 Narrative [facility] - 01/21/2025 10:10 AM CDT Performed at: [address] [place] [address] [id number] Payroll Benefits Administrator: Karan Ray PhD, Phone: [phone] us Annette Loco MD LAB BLOOD ORDERABLES Final Resul t Performing Organization Address [facility] Co de Phone Number [facility] - * (ABNORMAL) Ferritin (01/20/2025 11:51 AM CDT) Ferritin 498(H) 30 - 400 ng/mL [facility] - 01 Blood 01/20/2025 11:5 1 AM CDT 01/20/2025 Narrative [facility] - 01/21/2025 8:11 AM CDT Performed at: [address] [place] [address] [id number] Payroll Benefits Administrator: Karan Ray PhD, Phone: [phone] us Annette Loco MD LAB BLOOD ORDERABLES Final Resul t [facility] - * (ABNORMAL) Renal function panel (01/20/2025 11:51 AM CDT) Glucose 165(H) 70 - 99 mg/dL [facility] - 01 BUN 11 6 - 24 mg/dL [facility] - 01 Creatinine, Serum 0.95 0.76 - 1.27 mg/dL [facility] - 01 eGFR 95 >59 mL/min/1.7 3 [facility] - 01 BUN/creat ratio 12 9 - 20 [facility] - 01 Sodium 142 134 - 144 mmol/L [facility] - 01 Potassium, sr 4.0 3.5 - 5.2 mmol/L [facility] - 01 Chloride 103 96 - 106 mmol/L [facility] - 01 CO2 23 20 - 29 mmol/L [facility] - 01 Calcium 8.5(L) 8.7 - 10.2 mg/dL [facility] - 01 Phosphorus, sr 2.8 2.8 - 4.1 mg/dL [facility] - 01 Albumin 3.9 3.8 - 4.9 g/dL [facility] - 01 Blood 01/20/2025 11:5 1 AM CDT 01/20/2025 Narrative [facility] - 01/21/2025 8:11 AM CDT Performed at: 01 - [place] [id number] Payroll Benefits Administrator: Karan Ray PhD, Phone: [phone] Annette Loco MD LAB BLOOD ORDERABLES Final Resul t [facility] - * (ABNORMAL) Hemoglobin A1c (10/11/2021 2:22 PM CDT) Hgb A1C 6.5(H) 4.0 - 5.6 % [facility] ([place]) Estimated Average Glucose 140 mg/dL [facility] ([place]) Comment: The ADA recommends reporting an estimated Average Glucose (eAG) with all Hemoglobin A1c results using the equation derived from a study of 507 normal and diabetic adults. Minority populations were underrepresented and children were not included. (Diabetes Care 31:6687-0930, 2008). The eAG is not equivalent to a fasting glucose. Blood 10/11/2021 2:22 PM CDT 10/11/2021 3:47 PM CDT Wendy Hernandez MD LAB BLOOD ORDERABLES Final Result [facility] ([place]) [address] [facility] Department [place] [address] * Lipid panel (05/01/2021 2:07 AM CDT) Cholesterol 166 30 - 199 mg/dL [facility] Comment: Interpretive Data Ages < or = 19 years Acceptable: <170 mg/dL Borderline high: 170-199 mg/dL High: >or= 200 mg/dL Ages > or = 20 years Desirable: <200 mg/dL Borderline high: 200-239 mg/dL High: >or= 240 mg/dL Literature References: 1. Expert Panel on Integrated Guidelines for Cardiovascular Health and Risk Reduction in Children and Adolescents. Pediatrics 2011;128:S213 2. NCEP Expert Panel. Circulation 2004;110:227 Current Interpretive Data was last revised on 2018. Testing performed by: [facility], [facility] [facility], [place]., [address] Triglycerides 86 <=149 mg/dL [facility] Comment: Interpretive Data Ages < or = 9 years Acceptable: <75 mg/dL Borderline high: 75-99 mg/dL High: >or= 100 mg/dL Ages 10 to 20 years Acceptable: <90 mg/dL Borderline high: 90-129 mg/dL High: >or= 130 mg/dL Ages > or = 20 years Desirable: <150 mg/dL Borderline high: 150-199 mg/dL High: 200-499 mg/dL Very high: >or= 499 mg/dL Literature References: 1. Expert Panel on Integrated Guidelines for Cardiovascular Health and Risk Reduction in Children and Adolescents. Pediatrics 2011;128:S213 2. NCEP Expert Panel. Circulation 2004;110:227 Current Interpretive Data was last revised on 2018. Testing performed by: [facility], [address] [place] [address]., [id number] HDL 40 >=40 mg/dL [facility] Comment: Interpretive Data Ages < or = 19 years Acceptable: >45 mg/dL Borderline low: 40-45 mg/dL Low: <40 mg/dL Ages > or = 20 years Desirable: >or= 60 mg/dL Low: <40 mg/dL Literature References: 1. Expert Panel on Integrated Guidelines for Cardiovascular Health and Risk Reduction in Children and Adolescents. Pediatrics 2011;128:S213 2. NCEP Expert Panel. Circulation 2004;110:227 Current Interpretive Data was last revised on 2018. Testing performed by: [facility], [address] [place] [address]., [id number] LDL, calculated 109 <=129 mg/dL [facility] Comment: Interpretive Data Ages < or = 19 years Acceptable: <110 mg/dL Borderline high: 110-129 mg/dL High: >or= 130 mg/dL Ages > or = 20 years Optimal: <100 mg/dL Near optimal: 100-129 mg/dL Borderline high: 130-159 mg/dL High: >160 mg/dL Literature References: 1. Expert Panel on Integrated Guidelines for Cardiovascular Health and Risk Reduction in Children and Adolescents. Pediatrics 2011;128:S213 2. NCEP Expert Panel. Circulation 2004;110:227 Current Interpretive Data was last revised on 2018. Testing performed by: [facility], [address] [place] [address]., [address] Non-HDL Cholesterol 126 mg/dL [facility] Comment: Interpretive Data Ages < or = 19 years Acceptable: <120 mg/dL Borderline high: 120-144 mg/dL High: >145 mg/dL Ages > or = 20 years When triglycerides are >200 mg/dL, Non-HDL cholesterol is a secondary target of therapy with treatment goals that are 30 mg/dL greater than the LDL cholesterol target. Literature References: 1. Expert Panel on Integrated Guidelines for Cardiovascular Health and Risk Reduction in Children and Adolescents. Pediatrics 2011;128:S213 2. NCEP Expert Panel. Circulation 2004;110:227 Current Interpretive Data was last revised on 2018. Testing performed by: [facility], [facility] [place]., [address] Chol/HDL ratio 4 [facility] Comment:Testing performed by : [facility], [address] [place] [address]., [id number] Blood 05/01/2021 2:07 AM CDT 05/01/2021 7:45 AM CDT us Loco Harry MD LAB BLOOD ORDERABLES Final Res ult [facility] [address] [facility] [place] [address] * Hepatitis panel, acute (07/12/2018 10:41 AM UX LEAD) Hep A IgM Nonreactive Nonreactive [facility] Comment: Interpretive Data If test is reported as GRAYZONE, new sample should be drawn in two weeks for testing. Current interpretive data was last revised on 2016. Hep B core IgM Nonreactive Nonreactive [facility] Comment: Interpretive Data If test is reported as GRAYZONE, new sample should be drawn for testing. Current interpretive data was last revised on 2016. Hep C Ab Nonreactive Nonreactive [facility] Comment: Interpretive Data Positive results should be confirmed by a molecular method. If positive, a second separately collected sample should be submitted for Hepatitis C Virus (HCV) RNA Detection and Quantitation by Real-Time Reverse Elementary School Director-PCR (RT-PCR). Current interpretive data was last revised on 2016. HepBsAg Nonreactive Nonreactive [facility] Blood specimen (specimen) 07/12/2018 10:41 AM UX LEAD 07/12/2018 10:48 AM UX LEAD Narrative [facility] - 07/12/2018 12:42 PM UX LEAD us Annette Loco MD LAB MICROBIOLOGY - GENERAL ORDER RONALD Edited Result - Final [facility] Department [place] [address] from Last 3 Months or Most Recently Relevant to Health Maintenance Insurance ANTH ACCESS CHOICE Member Subscriber Plan / Payer (Ef fective 2024-Present) Name:Clifton Sanchez Relation to Subscriber:Self Name:Clifton Sanchez Payer ID:[id number] (NAIC) Type:[facility] Address: [address] MEDICARE ANTHEM ACCESS CHOICE ANTHEM ACCESS CHOICE Member Subscriber Plan / Payer (Ef fective 2019-Present) Name:Clifton Sanchez Relation to Subscriber:Self Name:Clifton Sanchez Payer ID:[id number] (NAIC) Type:[employer] Address: [facility] [id number] [facility] Advance Directives For more information, please contact: [phone] * Full Code (Latest Code Status on File) Date Activated Date Inactivated Comments 10/29/2021 12:05 PM 10/31/2021 7:45 PM * Full Code Date Activated Date Inactivated Comments 04/30/2021 11:07 AM 05/02/2021 10:51 PM * Full Code Date Activated Date Inactivated Comments 12/13/2019 10:29 PM 12/25/2019 4:17 PM Care Teams Drawer Maker Relationship Specialty Start Date End Date [facility], Kashif Carter [address] [place] [address] PCP - General Genetics 04/11/24 [place] [address] [place] [address] Surgeon Orthopedic Surgery 05/01/21 [place] [address] [place] [address] Referring Physician Cardiology 03/28/22 Joana Christopher, polymer materials consultant Failure Coordinator Transplant 08/16/23 Poonam Collins RN Heart Failure Coordinator Cardiology 06/20/24 Maisha Lee Primary Pulmonology Physician 04/03/25
== END 2025-04-14 14:08 | disposition home or self-care (01) ==
PROVIDERS: Visit Provider Physician Assistant Surgical
DX: S69.90XA Unspecified injury of unspecified wrist, hand and finger(s), initial encounter (principal); X58.XXXA Exposure to other specified factors, initial encounter
CPT/HCPCS: 73140

== ENCOUNTER 2025-04-30 12:27 | Outpatient (CLI) | payer MEDICARE, SELFPAY ==
[2025-04-30 12:29] LABS: Hematocrit 30.2 % (42.0-52.0); Hemoglobin 9.3 g/dL (14.0-18.0); Mean Corpuscular HGB Conc 30.8 g/dl (32-36); Mean Corpuscular Hemoglobin 29.6 pg (26-34); Mean Corpuscular Volume 96.2 fl (80-100); Platelet Count Result 278 k/mm3 (150-375); Red Blood Count 3.14 M/mm3 (4.6-6.20); White Blood Count 8.4 K/mm3 (4.5-10.0)
[2025-04-30 12:51] LABS: Alanine Aminotransferase 21 U/L (6-50); Albumin Level 3.8 g/dL (3.5-5.1); Alkaline Phosphatase 108 U/L (38-126); Anion Gap 6 mmol/L (4-12); Aspartate Amino Transferase 29 U/L (17-59); Bilirubin,Total 0.4 mg/dL (0.2-1.3); Blood Urea Nitrogen 23 mg/dL (9-20); Calcium 9.3 mg/dL (8.4-10.2); Carbon Dioxide 31 mmol/L (22-30); Chloride 98 mmol/L (98-107); Estimated Glomerular Filt Rate > 60; Glucose 263 mg/dL (65-110); Potassium 3.9 mmol/L (3.4-5.0); Sodium 135 mmol/L (137-145); Total Protein 8.5 g/dL (6.3-8.2)
[2025-04-30 12:54] LABS: Iron 42 ug/dL (49-181)
[2025-04-30 13:06] LABS: Percent Iron Saturation 23 % (20-50)
[2025-04-30 13:31] LABS: Thyroid Stimulating Hormone Reflex 0.696 uIU/mL (0.465-4.68)
[2025-04-30 13:36] LABS: Ferritin 331.00 ng/mL (11.1-264)
--- OUTSIDE RECORDS SUMMARY | 2025-04-30 13:52 | XMS_ITS | Encounter Summary ---
Author Organization [employer] Address [address] [place] [address] Care Team Providers Care Intellectual Property Counsel Name Role Phone Magdy Guzman MD Primary Care Provider [phone] Encounter Details Date Type Department Care Team (Late st Contact Info) Description 09/18/2005 Outpatient [facility] [address] [facility] 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
--- OUTSIDE RECORDS SUMMARY | 2025-04-30 13:52 | XMS_ITS | Encounter Summary ---
Author Organization [employer] Address [address] [place] [address] Care Team Providers Care Primary Health Care Nurse Name Role Phone Magdy Guzman MD Primary Care Provider [phone] Encounter Details Date Type Department Care Team (Late st Contact Info) Description 11/24/2004 Outpatient Historical [facility] Endocrinology & Diabetes Management 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
--- OUTSIDE RECORDS SUMMARY | 2025-04-30 13:52 | XMS_ITS | Clinical Summary ---
Author Organization [facility] Address [address] [place] [address] Phone Care Team Providers Care Aoc Director Intelligence Officer Name Role Phone Magdy Guzman MD Primary Care Provider [phone] Allergies Active Allergy Reactions Criticality Noted Date [...] jonah-dexamethaso ne (MAXITROL) 3.5mg/mL-10,000 unit/mL-0.1 % suspension [id number]-p exameth 3.5 mg/mL-10,000 unit/mL-0.1% eye drops Active [...] TAKE 2 TABLETS BY MOUTH IN THE SALES REPRESENTATIVE JEWELRY BEFORE BREAKFAST. 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
--- OUTSIDE RECORDS SUMMARY | 2025-04-30 13:52 | XMS_ITS | Encounter Summary ---
Author Organization [employer] Address [address] [place] [address] Care Team Providers Care Wood Barker Name Role Phone Magdy Guzman MD Primary Care Provider [phone] Encounter Details Date Type Department Care Team (Late st Contact Info) Description 10/18/2005 Outpatient [facility] [address] 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
--- OUTSIDE RECORDS SUMMARY | 2025-04-30 13:52 | XMS_ITS | Encounter Summary ---
Author Organization [employer] Address [address] [place] [address] Care Team Providers Care Assistant Fitness Manager Name Role Phone Magdy Guzman MD Primary Care Provider [phone] Encounter Details Date Type Department Care Team (Late st Contact Info) Description 05/27/2005 Outpatient [facility] [address] [place] [address] [address]. 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
--- OUTSIDE RECORDS SUMMARY | 2025-04-30 13:52 | XMS_ITS | Encounter Summary ---
Author Organization [facility] Address [address] [facility] [place] [address] Care Team Providers Care General Counsel Name Role Phone Derrick Saeed MD Unavailable Partha Miles MD Unavailable [phone] Magdy Guzman MD Primary Care Provider [phone] Reason for Visit * Reason Onset Date Comments MEDICATION REFILL 03/31/2025 Encounter Details Date Type Department Care Team (Late st Contact Info) Description 03/31/2025 Telephone [facility] - Endocrinology [address] [place] [address], [address] [place] [address] Michael Membreno MD [address] [place] [address] [address] [place] [address] MEDICATION REFILL Social History Tobacco Use Types Packs/Day Years Used Date Smoking Tobacco: Former Pipe Q uit: 02/14/2015 Smokeless Tobacco: Never Comments:smoked pipe 2-3 garry es per year Alcohol Use Standard Drinks/Week Comments Yes 15 (1 standard drink = 0.6 oz pu re alcohol) Sex and Gender Information Value Date Recorded Sex Assigned at Not on file Legal Sex Male 6:21 AM SERVICE TESTER Gender Identity Not on file Sexual Orientation Not on file 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 Not on file Not on file Not on file documented as of this encounter Miscellaneous Notes * Addendum Note - Christina Alfonso - 04/29/2025 9:58 AM CDTAddended by: CHRISTINA ALFONSO on: 04/29/2025 09:58 AM Modules accepted: Orders * Telephone Encounter - Nichelle Zambrano - 03/31/2025 11:10 AM CDT Next appt 08/18/2025 NS \ CX Last appt 03/27/2025 Michael Membreno MD Meds/allergies reviewed documented in this encounter Plan of Treatment Upcoming Encounters Date Type Department Care Team (Late st Contact Info) Description 08/18/2025 11:20 AM SERVICE TESTER Office Visit [facility] - Endocrinology [address] [place] [address] Michael Membreno MD [address] [place] [address] [place] [address] documented as of this encounter Visit Diagnoses Diagnosis Diabetes mellitus type 2, insulin dependent (HCC)- Primary Type II or unspecified type diabetes mellitus without mention of complication, not stated as uncontrolled Controlled type 2 diabetes mellitus without complication, with long-term current use of insulin (HCC) documented in this encounter Care Teams General Counsel Relationship Specialty Start Date End Date Magdy Guzman MD [facility] [address] [place] [address] PCP - General Family Medicine 03/17/21 Derrick Saeed MD Referring Physician Plastic and Reconstructive Surgery 05/26/15 Partha Miles MD Radiation Oncologist Radiation Oncology 05/26/15 documented as of this encounter
--- OUTSIDE RECORDS SUMMARY | 2025-04-30 13:52 | XMS_ITS | Clinical Summary ---
Author Organization [facility] Address [address] [place] [address] Care Team Providers Care Peanut Grader Name Role Phone Derrick Saeed MD Unavailable [phone] Partha Miles MD Unavailable [phone] Magdy Guzman MD Primary Care Provider [phone] Source Comments [facility],non-owned Affiliates and Associated Physician Practices is amultiple site organization consisting of ambulatory clinics and hospital sitesin [place], [place], [place] and [place]. This disclosure is being madepursuant to the Care Everywhere program and may not contain all information available regarding this patient. Last updated 18.[facility] Allergies Active Allergy Reactions Criticality Noted Date [...] (FLOMAX) 0.4 MG capsule 08/16/19 21 Active Lakeland-3 Fatty Acids (RA FISH OIL) 1000 MG [...] tablet as needed by oral route. Active blood glucose (Accu-Chek Guide) test stripIndicatio ns:Controlled type 2 diabetes mellitus without complication, with long-term current use of insulin ([facility]) Use 1 (one) strip once daily 100 [...] monitor) 100 Each 3 03/31/20 25 Active Blood Glucose Monitoring Suppl (Accu-Chek Guide) w/Device KITIndications :Controlled type 2 diabetes mellitus without complication, with long-term current use of insulin (HCC) Use 1 Each once daily 1 Each 04/29/20 25 Active Blood Glucose Monitoring Suppl (Accu-Chek Guide) w/Device KITIndications :Controlled type 2 diabetes mellitus without complication, with long-term current use of insulin ([facility]) Use 1 Each once daily 1 Each 01/01/20 25 025 Discontin ued(List Clean-Up) Active Problems Problem Noted Date Diagnosed Date Dyslipidemia 11/06/2017 Insulin pump status, using U500 in pump 11/01/19 Essential hypertension 01/26/2016 Diabetes mellitus type II, c ontrolled, with no complications 10/27/2015 Mixed hyperlipidemia 10/27/2015 Hypertension with goal blood pressure less than 140/90 10/27/2015 Morbid obesity 10/27/2015 ANMOL (obstructive sleep apnea) 10/27/2015 Encounters Date Type Department Care Team Description 03/31/2025 Telephone [facility] Endocrinology [address], [address] [place] [address] Michael Membreno MD MEDICATION REFILL 03/27/2025 10:40 AM CDT Office Visit [facility] - Endocrinology [address], [address] [place] [id number] Michael Membreno MD Diabetes mellitus type 2, [...] on file Legal Sex Male 6:21 AM CHILLING HOOD OPERATOR Gender Identity Not on file Sexual Orientation Not on file 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 Not on file Not on file Not on file Last Filed Vital Signs Vital Sign Reading Time Taken Comments Blood Pressure 144/76 05/22/2024 10:24 AM CHILLING HOOD OPERATOR Pulse 84 05/27/2015 10:57 AM CHILLING HOOD OPERATOR Temperature 37.2 C (99 F) 05/27/2015 10:57 AM CHILLING HOOD OPERATOR Respiratory Rate 16 05/27/2015 10:57 AM CHILLING HOOD OPERATOR Oxygen Saturation - - Inhaled Oxygen Concentration - - Weight 167.8 kg (370 lb) 05/22/2024 10:24 AM CHILLING HOOD OPERATOR Height 177.8 cm (5' 10) 05/22/2024 10:24 AM CHILLING HOOD OPERATOR Body Mass Index 53.09 05/22/2024 10:24 AM CHILLING HOOD OPERATOR Plan of Treatment Upcoming Encounters Date Type Department Care Team (Late st Contact Info) Description 08/18/2025 11:20 AM CHILLING HOOD OPERATOR Office Visit [facility] - Endocrinology [address], [address] [place] [address] Michael Membreno MD [address] [place] [address] Health Maintenance Due Date Last [...] URINE RANDOM PANEL Routine 05/22/2024 11:19 AM CHILLING HOOD OPERATOR Diabetes mellitus type 2, insulin dependent COMPREHENSIVE METABOLIC PANEL Routine 05/22/2024 11:19 AM CHILLING HOOD OPERATOR Diabetes mellitus type 2, insulin dependent HM DIABETES EYE EXAM Routine 01/26/2016 from Last 3 Months or Most Recently Relevant to Health Maintenance Results * HEMOGLOBIN A1C - POINT OF CARE (AMB) (03/27/2025 10:40 AM CDT) Hemoglobin A1c POCT 6.3 % [facility] Expiration Date [address] [facility] Lot # [id number] [facility] QC Verified Yes Yes [facility] Blood BLOOD SPECIMEN / Unknown 03/27/2025 10:40 AM CDT Michael Membreno MD LAB - POINT OF CARE ORDERAB LES Final Result [facility] [address] [facility] [address] [place], [place] [address] [phone] * (ABNORMAL) MICROALB/CREAT RATIO URINE RANDOM PANEL (05/22/2024 11:19 AM CHILLING HOOD OPERATOR) Creatinine Urine 114.35 mg/dL [facility] ACCOUNT BILL Microalbumin Urine 4.0 mg/dL [facility] ACCOUNT BILL Microalbumin/Crea tinine Ratio 34(H) <30 mg/g [facility] ACCOUNT BILL Urine URINE SPECIMEN OBTAINED BY CLEAN CATCH PROCEDURE / Unknown 05/22/2024 11:19 AM CHILLING HOOD OPERATOR 05/22/2024 Narrative [facility] ACCOUNT BILL - 05/22/2024 4:09 PM CHILLING HOOD OPERATOR Performed at: [address] [place] [id number] Supervisor Bottle Machines: Geovanny Garza MD, Phone: [phone] Michael Membreno MD LAB - URINE CHEMISTRY ORDER RONALD Final Result [facility] ACCOUNT BILL [address] [place] [address] * (ABNORMAL) COMPREHENSIVE METABOLIC PANEL (05/22/2024 11:19 AM CHILLING HOOD OPERATOR) Glucose 165(H) 70 - 99 mg/dL [facility] [...] BLOOD SPECIMEN / Unknown 05/22/2024 11:19 AM CHILLING HOOD OPERATOR 05/22/2024 Narrative [facility] ACCOUNT BILL - 05/22/2024 4:09 PM CHILLING HOOD OPERATOR Performed at: [address] [place] [id number] Supervisor Bottle Machines: Geovanny Garza MD, Phone: [phone] us Michael Membreno MD LAB - CHEMISTRY ORDERABLES Final Result [facility] ACCOUNT BILL [address] [place] [address] * DIABETES EYE EXAM (01/26/2016) us Provider Unknown HEALTH MAINTENANCE Final Result from Last 3 Months or Most Recently Relevant to Health Maintenance Insurance [employer] MEDICARE FOR[facility]LY [facility] Care Teams Peanut Grader Relationship Specialty Start Date End Date Magdy Guzman MD [facility] [place] [address] PCP - General Family Medicine 03/17/21 Derrick Saeed MD Referring Physician Plastic and Reconstructive Surgery 05/26/15 Partha Miles MD Radiation Oncologist Radiation Oncology 05/26/15
--- OUTSIDE RECORDS SUMMARY | 2025-04-30 13:52 | XMS_ITS | Clinical Summary ---
Author Organization [facility] Address [address] [place] [address] Phone Care Team Providers Care Plumbing And Heating Contractor Name Role Phone Magdy Guzman MD Primary Care Provider Social History Tobacco Use Types Packs/Day Years Used Date Smoking Tobacco: Never Assessed Sex and Gender Information Value Date Recorded Sex Assigned at Not on file Legal Sex Male 7:38 AM CLIENT SOLUTIONS DIRECTOR Gender Identity Not on file Sexual Orientation [...] this topic Insurance [employer] Care Teams Plumbing And Heating Contractor Relationship Specialty Start Date End Date Magdy Guzman MD [facility] [place] [address] PCP - General Ticket Printer 07/28/20
--- OUTSIDE RECORDS SUMMARY | 2025-04-30 13:52 | XMS_ITS | Encounter Summary ---
Author Organization [facility] Address [address] [place] [address] Phone Care Team Providers Care Caramel Candy Maker Helper Name Role Phone Wendy Hernandez MD Unavailable [phone] Shahzad Nair MD Primary Care Provider [phone] Joana Christopher RN Unavailable Unavailable Fabian Duran MD Unavailable Nilda Henley RN Unavailable [phone] Joana Christopher RN Unavailable Unavailable Joana Christopher RN Unavailable Unavailable [facility], [facility] Primary Care Pro vider Poonam Collins [...] on file Legal Sex Male 11:58 PM ICE CREAM MAKER Gender Identity Not on file Sexual Orientation Straight 07/23/2020 6: 40 AM ICE CREAM MAKER documented as of this encounter Plan of Treatment Not on file documented as of this encounter Procedures Procedure Name Priority Date/Time Associated Diagnosis Comments SCAN - LABS 04/25/2022 documented in this encounter Results * SCAN - LABS (04/25/2022) us Provider Scanning Final Result documented in this encounter Visit Diagnoses Not on filedocumented in this encounter Care Teams Caramel Candy Maker Helper Relationship Specialty Start Date End Date Shahzad Nair MD [address] [place] [address] [place] [address] PCP - General 10/29/21 04/10/24 [facility], Kashif Carter [address] [place] [address] PCP - General Genetics 04/11/24 [place] [address] [address] Surgeon Orthopedic Surgery 05/01/21 Joana Christopher, director acuteInjection Specialist Cardiology 03/28/22 08/16/23 Fabian Duran MD Referring Physician Cardiology 03/28/22 Nilda Henlye, RN [address] [facility] [address] [place] [address] Injection Specialist Cardiology 03/28/22 Joana Christopher, machine tank operator Failure Coordinator 08/03/23 4 Joana Christopher, machine tank operator Failure Coordinator Transplant 08/16/23 Poonam Collins RN Heart Failure Coordinator Cardiology 06/20/24 Maisha Lee Primary Gill Net Stringer 04/03/25 documented as of this encounter
--- OUTSIDE RECORDS SUMMARY | 2025-04-30 13:52 | XMS_ITS | Clinical Summary ---
Author Organization [facility] Address [address] [place] [address] Care Team Providers Care Packaging Inspector Name Role Phone Wendy Hernandez MD Unavailable [phone] Fabian Duran MD Unavailable [phone] Joana Christopher RN Unavailable Unavailable [facility], [facility] Primary Care Pro vider Poonam [...] (12/23/2019): Added automatically from request for surgery [id number] Acanthosis nigricans 09/23/2019 Acute urticaria 09/23/2019 Enlarged [...] cardiac cath. Insulin pump adjusted due to quill cleaning machine operator hypoglycemia when NPO for cath. Patient will be discharged home today Recommendations: Resumehome Metformin on discharge Insulin Pump ON and FUNCTIONING Patient is mentally and physically capable of operating insulin pump Continue pump and basal-bolus dosing as shown below: Pump model: Omnipod with The Invisible Armor Johanny CGM Insulin type: Humalog U500 concentrated [...] require outpatient Endocrinology follow-up upon discharge; Dr. Mihcael Membreno (patient state he has appointment next [...] home basal settings: Pump model: Omnipod with CompassMedstyle Johanny CGM Insulin type: Humalog U500 concentrated [...] Type Department Care Team Description 04/02/2025 Telephone [facility] [address] [facility] [address] [place] [address] [place] [address] Fabian Duran MD 04/02/2025 Telephone [facility] [address] [facility] [facility] 8[address] [place] [address] [place] [address] Fabian Duran MD from Last 3 Months Immunizations Immunization Administration Dates Next Due Influenza, Quadrivalent, Spl it, Preservative Free, Intramuscular 05/02/2021 Influenza, Trivalent, IM (MDV) 05/13/2015 Yara (J&J) SARS-CoV-2 Vaccination 10/21/2020 Tdap 05/15/2017 Surgical History Surgery Date Site/Laterality Comments SD BIOPSY BONE TROCAR/NEEDLE SUPERFICIAL Biopsy Bone - (Added by TW Conv) SD TONSILLECTOMY PRIMARY/SEC ONDARY <AGE 12 Tonsillectomy - (Added by TW Conv) FRACTURE SURGERY Left leg KELOID EXCISION JOINT REPLACEMENT Left knee Medical History Medical History Date Comments Hyperlipidemia Hyperlipidemia Personal history of diseases of skin or subcutaneous tissue History of keloid of skin - (Added by TW Conv) Osteomyelitis Osteomyelitis of arm - (Added by TW Conv) Heart failure Poor circulation Hypertension Peripheral neuropathy Osteoarthritis Type 2 diabetes mellitus BPH (benign prostatic hyperplasia) Sleep apnea Hard to intubate CHF (congestive heart failure) (HCC) COPD (chronic obstructive pu lmonary disease) Family History Medical History Relation Name Comments Asthma Brother Family history of asthma - (Added by Conv) Diabetes Father Family history of diabetes [...] on file Legal Sex Male 11:58 PM DIVIDING MACHINE OPERATOR HELPER Gender Identity Not on file Sexual Orientation Straight 07/23/2020 6: 40 AM DIVIDING MACHINE OPERATOR HELPER Obstetrics History Last Filed Vital Signs Vital [...] 2025 05/20/2021, 10/21/2020 Lipid Panel 05/22/2025 05/22/2024, 0203/2023, 09/24/2021, Additional history exists eGFR 01/20/2026 01/20/2025, 03/18, 04/11/2024, Additional history exists DTaP/Tdap/Td Vaccine (3 - Td or Tdap) 05/02/2034 05/02/2024, 05/15/2017 Hepatitis C Screening Completed 07/12/2018 Zoster Vaccine Completed 05/02/2024, 11/06/2023 Influenza Vaccine Completed 03/14/2025, , 04/21/2023, Additional history exists Medical Devices Implanted Type Area Medical Record Clerk Device Identifier Shelf Expiration Date Model / Serial / Lot [employer] [id number] Palacos R+G High Viscosity Cement Bone Gentamicin Arthroplasty - [id number] Implanted:Qty: 1 on 04/30/2021 by Wendy Hernandez MD at [facility] Left: Knee [employer] 09/14/2023 [id number] / / [id number] [employer] [id number] Palacos R+G High Viscosity Cement Bone Gentamicin Arthroplasty - [id number] Implanted:Qty: 1 on 04/30/2021 by Wendy Hernandez MD at [facility] Left: Knee [employer] 09/14/2023 [id number] / / [id number] [employer] [id number] Vanguard 67.5mm Cruciate Retaining Cemented Primary Knee Left - [id number] Implanted:Qty: 1 on 04/30/2021 by Wendy Hernandez MD at [facility] Left: Knee [employer] [id number] 01/07/2029 [id number] / / [id number] [employer] [id number] 79mm I Beam Knee Tray Tibial Cocr - [id number] Implanted:Qty: 1 on 04/30/2021 by Wendy Hernandez MD at [facility] Left: Knee [employer] 11/04/2030 [id number] / / [id number] [employer] [id number] Ascent 34mm 1 Peg Wire Knee Anterior Posterior Component Patellar - [id number] Implanted:Qty: 1 on 04/30/2021 by Wendy Hernandez MD at [facility] Left: Knee [employer] [id number] 03/29/[id number] / / [id number] [employer] [id number] Vanguard [id number] Anterior Stabilize Inlay Knee 0d Bearing - [id number] Implanted:Qty: 1 on 04/30/2021 by Wendy Hernandez MD at [facility] Left: Knee [employer] [id number] 12/23/2025 [id number] / / [id number] [employer] 79mm I Beam Knee Tray Tibial Cocr [id number] - [id number] Implanted:Qty: 1 on 10/29/2021 by Wendy Hernandez MD at [facility] Right: Knee [employer] 03/15/2031 [id number] / / [id number] [employer] Vanguard 70mm Cruciate Retaining Cemented Primary Knee Right [id number] - [id number] Implanted:Qty: 1 on 10/29/2021 by Wendy Hernandez MD at [facility] Right: Knee [employer] [id number] 01/26/2031 [id number] / / [id number] [employer] [id number] Anterior Stabilize Inlay Knee 0d Bearing - [id number] Implanted:Qty: 1 on 10/29/2021 by Wendy Hernandez MD at [facility] Right: Knee [employer] [id number] 06/23/2026 [id number] / / [id number] [employer] [id number] Palacos R High Viscosity Cement 40gm Bone Green - [id number] Implanted:Qty: 1 on 10/29/2021 by Wendy Hernandez MD at [facility] Right: Knee [employer] 11/13/2024 [id number] / / [id number] [employer] [id number] Palacos R High Viscosity Cement 40gm Bone Green - [id number] Implanted:Qty: 1 on 10/29/2021 by Wendy Hernandez MD at [facility] Right: Knee [employer] 11/13/2024 [id number] / / [id number] [employer] Ascent 37mm 1 Peg Wire Knee Anterior Posterior Component Patellar [id number] - [id number] Implanted:Qty: 1 on 10/29/2021 by Wendy Hernandez MD at [facility] Right: Knee [employer] [id number] 12/04/2025 [id number] / / [id number] Procedures Procedure Name Priority Date/Time Associated Diagnosis Comments RENAL FUNCTION PANEL Routine 01/20/2025 11:51 AM [...] HEPATITIS PANEL, ACUTE Routine 07/12/2018 10:41 AM DIVIDING MACHINE OPERATOR HELPER Proteinuria, unspecified type from Last 3 Months or Most Recently Relevant to Health Maintenance Results * (ABNORMAL) Renal function panel (01/20/2025 11:51 [...] - 01/21/2025 8:11 AM CDT Performed at: - [address] [id number] Manager Lvn: Karan Ray PhD, Phone: [phone] us Annette Loco MD LAB BLOOD ORDERABLES Final Resul t [facility] - 01 * (ABNORMAL) Hemoglobin A1c (10/11/2021 2:22 PM CDT) Hgb A1C 6.5(H) 4.0 - 5.6 % [facility] ([facility]) Estimated Average Glucose 140 mg/dL [facility] ([facility]) Comment: The ADA recommends reporting an estimated Average Glucose (eAG) with all Hemoglobin A1c results using the equation derived from a study of 507 normal and diabetic adults. Minority populations were underrepresented and children were not included. (Diabetes Care 31:8944-7460, 2008). The eAG is not equivalent to a fasting glucose. Blood 10/11/2021 2:22 PM CDT 10/11/2021 3:47 PM CDT Wendy Hernandez MD LAB BLOOD ORDERABLES Final Result [facility] ([place]) 1 [facility] Department [place] [address] * Lipid panel (05/01/2021 2:07 AM CDT) Cholesterol 166 30 - 199 mg/dL [facility] Comment: Interpretive Data Ages < or [...] last revised on 2018. Testing performed by: [facility], [address] [place] [address]., [address] Triglycerides 86 <=149 mg/dL [facility] Comment: Interpretive Data Ages < or [...] last revised on 2018. Testing performed by: [facility], [address] [place] [address]., [address] HDL 40 >=40 mg/dL [facility] Comment: Interpretive Data Ages < or [...] last revised on 2018. Testing performed by: [facility], [address] [place] [address]., [address] LDL, calculated 109 <=129 mg/dL [facility] Comment: Interpretive Data Ages < or [...] last revised on 2018. Testing performed by: [facility], [address] [place] [address]., [address] Non-HDL Cholesterol 126 mg/dL [facility] Comment: Interpretive Data Ages < or [...] last revised on 2018. Testing performed by: [facility], [address] [place] [address]., [address] Chol/HDL ratio 4 [facility] Comment:Testing performed by : [facility], [facility] [facility], [place]., [address] Blood 05/01/2021 2:07 AM CDT 05/01/2021 7:45 AM CDT us Loco Harry MD LAB BLOOD ORDERABLES Final Res ult [facility] [address] [place] [facility] [place] [address] * Hepatitis panel, acute (07/12/2018 10:41 AM DIVIDING MACHINE OPERATOR HELPER) Hep A IgM Nonreactive Nonreactive [facility] Comment: Interpretive Data If test is reported as GRAYZONE, new sample should be drawn in two weeks for testing. Current interpretive data was last revised on 2016. Hep B core IgM Nonreactive Nonreactive [facility] Comment: Interpretive Data If test is reported as GRAYZONE, new sample should be drawn for testing. Current interpretive data was last revised on 2016. Hep C Ab Nonreactive Nonreactive [facility] Comment: Interpretive Data Positive results should be confirmed by a molecular method. If positive, a second separately collected sample should be submitted for Hepatitis C Virus (HCV) RNA Detection and Quantitation by Real-Time Reverse Electrical Logging Engineer-PCR (RT-PCR). Current interpretive data was last revised on 2016. HepBsAg Nonreactive Nonreactive [facility] Blood specimen (specimen) 07/12/2018 10:41 AM DIVIDING MACHINE OPERATOR HELPER 07/12/2018 10:48 AM DIVIDING MACHINE OPERATOR HELPER Narrative [facility] - 07/12/2018 12:42 PM DIVIDING MACHINE OPERATOR HELPER us Annette Loco MD LAB MICROBIOLOGY - GENERAL ORDER RONALD Edited Result - Final [facility] Department [place] [address] from Last 3 Months or Most Recently Relevant to Health Maintenance Insurance [facility] MEDICARE ADVANTAGE [facility] ACCESS CHOICE ANTHEM ACCESS CHOICE Member Subscriber Plan / Payer (Ef fective 2019-Present) Name:Clifton Sanchez Relation to Subscriber:Self Name:Clifton Sanchez Payer ID:[id number] (NAIC) Type:[facility] Address: [address] BUREAU OF DISABILITY [facility] Advance Directives For more information, please contact: [phone] * Full Code (Latest Code Status on File) Date Activated Date Inactivated Comments 10/29/2021 12:05 PM 10/31/2021 7:45 PM * Full Code Date Activated Date Inactivated Comments 04/30/2021 11:07 AM 05/02/2021 10:51 PM * Full Code Date Activated Date Inactivated Comments 12/13/2019 10:29 PM 12/25/2019 4:17 PM Care Teams Packaging Inspector Relationship Specialty Start Date End Date [facility], Kashif Carter [address] [place] [address] PCP - General Genetics 04/11/24 [place] [address] [place] [address] Surgeon Orthopedic Surgery 05/01/21 [place] [address] [place] [address] Referring Physician Cardiology 03/28/22 Joana Christopher RN Heart Failure Coordinator Transplant 08/16/23 Poonam Collins RN Heart Failure Coordinator Cardiology 06/20/24 Maisha Lee Primary Refrigeration Insulator 04/03/25
--- OUTSIDE RECORDS SUMMARY | 2025-04-30 13:52 | XMS_ITS | Encounter Summary ---
Author Organization [facility] Address [address] [place] [address] Care Team Providers Care Telemetry Registered Nurse Name Role Phone Magdy Guzman MD Primary Care Provider [phone] Encounter Details Date Type Department Care Team (Late st Contact Info) Description 04/13/2005 Outpatient Historical [facility] Endocrinology & Diabetes Management [address] [place] [address] Jennifer Cantu MD [address] [place] [address] Social History Tobacco Use Types Packs/Day Years Used Date Smoking Tobacco: Never Assessed Sex and Gender Information Value Date Recorded Sex Assigned at Not on file Legal Sex Male 2:42 AM AUTOMOTIVE PARTS ADVISOR Gender Identity Not on file Sexual Orientation Not on file documented as of this encounter Plan of Treatment Not on file documented as of this encounter Visit Diagnoses Not on filedocumented in this encounter Care Teams Telemetry Registered Nurse Relationship Specialty Start Date End Date Magdy Guzman MD PCP - General Family Practice 05/13/20 documented as of this encounter
--- OUTSIDE RECORDS SUMMARY | 2025-04-30 13:52 | XMS_ITS | Encounter Summary ---
Author Organization [employer] Address [address] [place] [address] Care Team Providers Care Joint Machine Operator Name Role Phone Magdy Guzman MD Primary Care Provider [phone] Encounter Details Date Type Department Care Team (Late st Contact Info) Description 07/25/2005 [facility] [address] [facility] [place] [address] Billy Ramsay MD [address] [place] [address] Social History Tobacco Use Types Packs/Day Years Used Date Smoking Tobacco: Never Assessed Sex and Gender Information Value Date Recorded Sex Assigned at Not on file Legal Sex Male 2:42 AM ER MANAGER Gender Identity Not on file Sexual Orientation Not on file documented as of this encounter Plan of Treatment Not on file documented as of this encounter Visit Diagnoses Not on filedocumented in this encounter Care Teams Joint Machine Operator Relationship Specialty Start Date End Date Magdy Guzman MD PCP - General Family Practice 05/13/20 documented as of this encounter
--- OUTSIDE RECORDS SUMMARY | 2025-04-30 13:52 | XMS_ITS | Encounter Summary ---
Author Organization [facility] Address [address] [place] [address] Phone Care Team Providers Care Test Puller Name Role Phone Wendy Hernandez MD Unavailable [phone] Shahzad Nair MD Primary Care Provider [phone] Joana Christopher RN Unavailable Unavailable Fabian Duran MD Unavailable [phone] Nilda Henley RN Unavailable [phone] Joana Christopher RN Unavailable Unavailable Joana Christopher RN Unavailable Unavailable [facility] Primary Care Pro vider Poonam [...] on file Legal Sex Male 11:58 PM STEEL DIVISION SUPERVISOR Gender Identity Not on file Sexual Orientation Straight 07/23/2020 6: 40 AM STEEL DIVISION SUPERVISOR documented as of this encounter Plan of Treatment Not on file documented as of this encounter Procedures Procedure Name Priority Date/Time Associated Diagnosis Comments SCAN - LABS 06/20/2022 documented in this encounter Results * SCAN - LABS (06/20/2022) us Provider Scanning Edited Result - Final documented in this encounter Visit Diagnoses Not on filedocumented in this encounter Care Teams Test Puller Relationship Specialty Start Date End Date Shahzad Nair MD [address] [place] [address] [place] [address] PCP - General 10/29/21 04/10/24 [facility], Kashif Poseyran [address] [place] [address] PCP - General Genetics 04/11/24 [place] [address] [address] Surgeon Orthopedic Surgery 05/01/21 Joana Christopher, hand painterMaintenance Instructor Cardiology 03/28/22 08/16/23 Fabian Duran MD Referring Physician Cardiology 03/28/22 Nilda Henley, RN [address] [facility] [address] [place] [address] Maintenance Instructor Cardiology 03/28/22 Joana Christopher, production grader Failure Coordinator 08/03/23 4 Joana Christopher, production grader Failure Coordinator Transplant 08/16/23 Poonam Collins production grader Failure Coordinator Cardiology 06/20/24 Maisha Lee Primary Pack Master 04/03/25 documented as of this encounter
--- OUTSIDE RECORDS SUMMARY | 2025-04-30 13:53 | XMS_ITS | Encounter Summary ---
Author Organization [facility] Address [address] [place] [address] Phone Care Team Providers Care Analysis Mgr Name Role Phone Shahzad Nair MD Primary Care Provider [phone] Magdy Guzman MD Primary Care Provider [phone] Shahzad Nair MD Primary Care Provider [phone] Wendy Hernandez MD Unavailable [phone] Shahzad Nair MD Primary Care Provider [phone] Joana Christopher RN Unavailable Unavailable Fabian Duran MD Unavailable [phone] Nilda Henley RN Unavailable [phone] Joana Christopher RN Unavailable Unavailable Joana Christopher RN Unavailable Unavailable [facility] Primary Care Pro vider Poonam Collins RN Unavailable Unavailab Maisha Crandall Unavailable Unavailable Encounter Details Date Type Department Care Team (Late st Contact Info) Description 05/15/2019 Telephone [facility] Cardiology [address] [facility] 8th [place] [address] [place] [address] Osmany Hernandez Social History Tobacco Use Types Packs/Day Years Used Date Smoking Tobacco: Some Days Smokeless Tobacco: Never Alcohol Use Standard Drinks/Week Comments Yes 0 (1 standard drink = 0.6 oz pur e alcohol) Occasionally Sex and Gender Information Value Date Recorded Sex Assigned at Not on file Legal Sex Male 11:58 PM ACADEMIC COORDINATOR Gender Identity Not on file Sexual Orientation Straight 07/23/2020 6: 40 AM ACADEMIC COORDINATOR documented as of this encounter Plan of Treatment Not on file documented as of this encounter Visit Diagnoses Not on filedocumented in this encounter Care Teams Analysis Mgr Relationship Specialty Start Date End Date Shahzad Nair MD [address] [place] [address] [place] [address] PCP - General 12/06/17 12/18/19 Magdy Guzman MD [address] [place] [address] [place] [address] PCP - General Family Medicine 12/19/19 12/24/19 Shahzad Nair MD [address] [place] [address] [place] [address] PCP - General 12/25/19 10/28/21 Shahzad Nair MD [address] [place] [address] [place] [address] PCP - General 10/29/21 [facility] [address] [place] [address] PCP - General Genetics 04/11/24 [place] [address] [place] [address] Surgeon Orthopedic Surgery 05/01/21 Joana Christopher, senior ui ux designerSolid Waste Manager Cardiology 03/28/22 08/16/23 Fabian Duran MD Referring Physician Cardiology 03/28/22 Nilda Henley, RN [address] [place] [address] Solid Waste Manager Cardiology 03/28/22 Joana Christopher, shear setter Failure Coordinator 08/03/23 4 Joana Christopher, shear setter Failure Coordinator Transplant 08/16/23 Poonam Collins, shear setter Failure Coordinator Cardiology 06/20/24 Maisha Lee Primary Plasma Cutting Machine Operator 04/03/25 documented as of this encounter
--- OUTSIDE RECORDS SUMMARY | 2025-04-30 13:53 | XMS_ITS | Encounter Summary ---
Author Organization [facility] Address [address] [facility] [place] [address] Care Team Providers Care Staff Registered Nurse Name Role Phone Derrick Saeed MD Unavailable Partha Miles MD Unavailable [phone] Danna Rollins Primary Care Provider Unavailabl e Magdy Guzman MD Primary Care Provider [phone] Encounter Details Date Type Department Care Team (Late st Contact Info) Description 11/23/2020 Lab Requisition [facility] [address] [facility] [place] [address] Leno Smith Jr., MD [address] [facility] [address] [place] [address] Social History Tobacco Use Types Packs/Day Years Used Date Smoking Tobacco: Former Pipe Q uit: 02/14/2015 Smokeless Tobacco: Never Comments:smoked pipe 2-3 garry es per year Alcohol Use Standard Drinks/Week Comments Yes 15 (1 standard drink = 0.6 oz pu re alcohol) Sex and Gender Information Value Date Recorded Sex Assigned at Not on file Legal Sex Male 6:21 AM HUMAN 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 FACULTY 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 Gender Identity Not on file Sexual Orientation Not on file 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 Not on file Not on file Not on file documented as of this encounter Plan of Treatment Upcoming Encounters Date Type Department Care Team (Late st Contact Info) Description 08/18/2025 11:20 AM HUMAN GEOGRAPHY FACULTY MEMBER Office Visit [facility] - Endocrinology [address] [facility], [address] [place] [address] Michael Membreno MD [address] [facility] [address] [place] [address] documented as of this encounter Procedures Procedure Name Priority Date/Time Associated Diagnosis Comments DERMATOPATHOLOGY Routine 11/20/2020 12:0 0 AM CDT documented in this encounter Results * DERMATOPATHOLOGY (11/20/2020 12:00 AM CDT) Case Report Dermatopathology Report Case: [id number] Authorizing Provider: Leno Smith Jr., MD Collected: 11/20/2020 12:00 AM Ordering Location: [facility] Received: 11/23/2020 12:56 PM Pathologist: [...] specimen consists of a shave biopsy measuring 1o1b1rx. Jar 0. 1 5:26 PM CDT DERMATOPATHOLOGY [...] characteristic determined by the Dermatopathology Laboratory at [facility], directed by Dr. Leonarda Brandt. These tests need not be, and therefore are not, approved by the [place] Food and Drug Administration. The tests are used for clinical purposes. Billing Codes Specimen Charges Stain Charges 03841 1 1 5:26 PM CDT DERMATOPATHOLOGY LABORATORY Embedded Images 1 5:26 PM CDT DERMATOPATHOLOGY LABORATORY Pathology/Cytolog y TISSUE SPECIMEN FROM SKIN / Unknown 11/20/2020 11/23/2020 12:56 PM CDT Leno Smith Jr., MD LAB - PATHOLOGY/CYTOLOG Y ORDERABLES Final Result DERMATOPATHOLOGY LABORATORY [facility] - Department of Dermatology [facility] [address] [place] [address], [address] [phone] documented in this encounter Visit Diagnoses Not on filedocumented in this encounter Care Teams Staff Registered Nurse Relationship Specialty Start Date End Date Danna Rollins Update Information PCP - General 11/23/20 03/16/21 Magdy Guzman MD [facility] [place] [address] PCP - General Family Medicine 03/17/21 Derrick Saeed MD Referring Physician Plastic and Reconstructive Surgery 05/26/15 Partha Miles MD Radiation Oncologist Radiation Oncology 05/26/15 documented as of this encounter
--- OUTSIDE RECORDS SUMMARY | 2025-04-30 13:53 | XMS_ITS | Encounter Summary ---
Author Organization [facility] Address [address] [place] [address] Phone Care Team Providers Care Instructor Business Education Name Role Phone Wendy Hernandez MD Unavailable [phone] Shahzad Nair MD Primary Care Provider [phone] Joana Christopher RN Unavailable Unavailable Fabian Duran MD Unavailable [phone] Nilda Henley RN Unavailable Joana Christopher RN Unavailable Unavailable Joana Christopher RN Unavailable Unavailable [facility] Primary Care Pro vider Poonam Collins RN Unavailable Unavailab Maisha Crandall Unavailable Unavailable Encounter Details Date Type Department Care Team (Late st Contact Info) Description 06/26/2023 Telephone [facility] Medicine Cardiology [address] [facility] 8th [place] [address] [place] [address] Fabian Duran MD [address] [facility] [address] [place] [address] Social History Tobacco Use Types [...] on file Legal Sex Male 11:58 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 Gender Identity Not on file Sexual Orientation Straight 07/23/2020 6: 40 AM SECURITY FLEX UTILITY OFFICER documented as of this encounter Plan of Treatment Not on file documented as of this encounter Visit Diagnoses Not on filedocumented in this encounter Care Teams Instructor Business Education Relationship Specialty Start Date End Date Shahzad Nair MD [address] [place] [address] [place] [address] PCP - General 10/29/21 04/10/24 [facility] Kashif Carter [address] [place] [address] PCP - General Genetics 04/11/24 [place] [address] [address] Surgeon Orthopedic Surgery 05/01/21 Joana Christopher, ore bridge operatorPelt Salter Cardiology 03/28/22 08/16/23 Fabian Duran MD Referring Physician Cardiology 03/28/22 Nilda Henley, DANIELLE [address] [address] [place] Cardiology 03/28/22 Joana Christopher, doll dresser Failure Coordinator 08/03/23 4 Joana Christopher, doll dresser Failure Coordinator Transplant 08/16/23 Poonam Collins, doll dresser Failure Coordinator Cardiology 06/20/24 Maisha Lee Primary Playground Monitor 04/03/25 documented as of this encounter
[2025-04-30 14:03] LABS: Vitamin B12 885.0 pg/mL (239-931)
[2025-05-01 15:09] LABS: Deamidated Gliadin Abs, IgA 7 units (0-19); Deamidated Gliadin Abs, IgG 2 units (0-19); Immunoglobulin A, Qn 625 mg/dL (90-386)
[2025-05-02 10:08] LABS: Pancreatic Elastase, Fecal 762 (>200)
[2025-05-02 15:09] LABS: Calprotectin, Fecal 375 ug/g (0-120)
== END 2025-04-30 12:28 | disposition home or self-care (01) ==
PROVIDERS: Visit Provider Nurse Practitioner
DX: K92.0 Hematemesis (principal); K21.9 Gastro-esophageal reflux disease without esophagitis; K52.9 Noninfective gastroenteritis and colitis, unspecified; K90.9 Intestinal malabsorption, unspecified; I50.9 Heart failure, unspecified
CPT/HCPCS: 36415; 80053; 82607; 82653; 82728; 82746; 82784; 83540; 83550; 83993; 84443; 85027; 86231; 86258

== ENCOUNTER 2025-06-17 12:45 | Outpatient (CLI) | payer MEDICARE, SELFPAY ==
--- NOTE | 2025-06-17 13:20 | NEURO_ITS ---
Impression: # Diabetic complains of numbness of hands. ? 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 ? 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 ? # Needle/ EMG exam neurogenic. Nerve Conduction Studies ?Stim Site NR Peak (ms) P-T Amp (?V) Site1 Site2 Delta-P (ms) Dist (cm) Nicola (m/s) Left Median Anti Sensory (2-3nd Digit)??? NO RESPONSE Wrist NR Wrist 2-3nd Digit 14.0 Wrist NR Wrist 2-3nd Digit 14.0 Right Median Anti Sensory (2-3nd Digit)??? NO RESPONSE Wrist NR Wrist 2-3nd Digit 14.0 Wrist NR Wrist 2-3nd Digit 14.0 Left Radial Anti Sensory (Base 1st Digit) Wrist ? 2.0 9.7 Wrist Base 1st Digit 2.0 0.0 Right Radial Anti Sensory (Base 1st Digit) Wrist ? 2.8 5.9 Wrist Base 1st Digit 2.8 0.0 Left Ulnar Anti Sensory (5th Digit) Wrist ? 4.2 11.4 Wrist 5th Digit 4.2 14.0 33 Right Ulnar Anti Sensory (5th Digit) Wrist ? 4.1 2.5 Wrist 5th Digit 4.1 14.0 34 ?Stim Site NR Onset (ms) O-P Amp (mV) Site1 Site2 Delta-0 (ms) Dist (cm) Nicola (m/s) Left Median Motor (Abd Poll Brev) Wrist ? 11.9 0.1 Elbow Wrist 6.0 29.0 48 Elbow ? 17.9 1.2 Right Median Motor (Abd Poll Brev) Wrist ? 14.5 0.6 Elbow Wrist 7.5 29.0 39 Elbow ? 22.0 0.5 Left Ulnar Motor (Abd Dig Minimi) Wrist ? 3.0 3.4 A Elbow Wrist 7.5 32.0 43 A Elbow ? 10.5 2.7 B Elbow Wrist 6.4 31.0 48 B Elbow ? 9.4 0.6 Right Ulnar Motor (Abd Dig Minimi) Wrist ? 3.0 1.6 A Elbow Wrist 6.6 30.0 45 A Elbow ? 9.6 1.2 B Elbow Wrist 5.4 25.0 46 B Elbow ? 8.4 0.4 F Wave Studies ?NR F-Lat (ms) L-R F-Lat (ms) Left Median (Mrkrs) (Abd Poll Brev) ? 30.09 2.31 Right Median (Mrkrs) (Abd Poll Brev) ? 27.78 2.31 Left Ulnar (Mrkrs) (Abd Dig Min) ? 37.53 9.29 Right Ulnar (Mrkrs) (Abd Dig Min) ? 28.24 9.29 Electromyography ?Side Muscle Nerve Root Ins Act Fibs Amp Dur Recrt Comment Right 1stDorInt Ulnar C8-T1 Nml Nml Nml >12ms Nml Left 1stDorInt Ulnar C8-T1 Nml Nml Nml >12ms Nml Right ABD Dig Min Ulnar C8-T1 Nml Nml Nml >12ms Nml Left ABD Dig Min Ulnar C8-T1 Nml Nml Nml >12ms Nml Left Abd Poll Brev Median C8-T1 Nml Nml Nml >12ms +2 Right Abd Poll Brev Median C8-T1 Nml Nml Nml >12ms +2 Right Abd Poll Long Radial (Post Int) C7-8 Nml Nml Nml Nml Nml Left Abd Poll Long Radial (Post Int) C7-8 Nml Nml Nml Nml Nml Left BrachioRad Radial C5-6 Nml Nml Nml Nml Nml Right BrachioRad Radial C5-6 Nml Nml Nml Nml Nml Right Ext Digitorum Radial (Post Int) C7-8 Nml Nml Nml Nml Nml Left Ext Digitorum Radial (Post Int) C7-8 Nml Nml Nml Nml Nml Left Ext Indicis Radial (Post Int) C7-8 Nml Nml Nml Nml Nml Right Ext Indicis Radial (Post Int) C7-8 Nml Nml Nml Nml Nml Left FlexPolLong Median (Ant Int) C7-8 Nml Nml Nml Nml Nml Right FlexPolLong Median (Ant Int) C7-8 Nml Nml Nml Nml Nml Right PronatorTeres Median C6-7 Nml Nml Nml Nml Nml Left PronatorTeres Median C6-7 Nml Nml Nml Nml Nml
--- OUTSIDE RECORDS SUMMARY | 2025-06-17 13:38 | XMS_ITS | Encounter Summary ---
Author Organization [facility] Address [address] [place] [address] Care Team Providers Care Direct Mail Clerk Name Role Phone Magdy Guzman MD Primary Care Provider [phone] Encounter Details Date Type Department Care Team (Late st Contact Info) Description 05/27/2005 [facility] [address] [place] [address] [address] [place], [place] [id number] Rafa Grimaldo MD Social History Tobacco Use Types Packs/Day Years Used Date Smoking Tobacco: Never Assessed Sex and Gender Information Value Date Recorded Sex Assigned at Not on file Legal Sex Male 2:42 AM DIRECTOR PRODUCT DEVELOPMENT Gender Identity Not on file Sexual Orientation Not on file documented as of this encounter Plan of Treatment Not on file documented as of this encounter Visit Diagnoses Not on filedocumented in this encounter Care Teams Direct Mail Clerk Relationship Specialty Start Date End Date Magdy Guzman MD PCP - General Family Practice 05/13/20 documented as of this encounter
--- OUTSIDE RECORDS SUMMARY | 2025-06-17 13:38 | XMS_ITS | Clinical Summary ---
Author Organization [facility] Address [address] [place] [address] Care Team Providers Care Sound Designer Name Role Phone Derrick Saeed MD Unavailable [phone] Partha Miles MD Unavailable [phone] Magdy Guzman MD Primary Care Provider [phone] Source Comments [facility],non-owned Affiliates and Associated Physician Practices is amultiple site organization consisting of ambulatory clinics and hospital sitesin [place], [place], [place] and [place]. This disclosure is being madepursuant to the Care Everywhere program and may not contain all information available regarding this patient. Last updated 18.[facility] Allergies Active Allergy Reactions Criticality Noted Date [...] times daily before meals Reported on 08/02/2016 6 Active PROAIR HFA 108 (90 BASE) MCG/ACT inhaler 90 mcg as needed 9 Active isosorbide dinitrate (ISORDIL) 20 MG tablet 3 times daily 0 Active torsemide (DEMADEX) 20 MG tablet Take 1 (one) tablet by mouth 2 times daily 0 Active hydrALAZINE (APRESOLINE) 100 MG tablet 3 times daily 0 Active pregabalin (LYRICA) 200 MG capsule Take 1 (one) capsule by mouth 4 times daily 0 Active carvedilol (COREG) 25 MG tablet carvedilol 25 mg tablet TAKE 1 TABLET BY MOUTH TWICE DAILY WITH MEALS 0 Active tamsulosin (FLOMAX) 0.4 MG capsule 1 Active Adrian-3 Fatty Acids (RA FISH OIL) 1000 MG Fish Oil 0 Active montelukast (SINGULAIR) 10 MG tablet montelukast 10 mg tablet TAKE 1 TABLET BY MOUTH ONCE DAILY Active traMADol (ULTRAM) 50 MG tablet Take 2 (two) tablets by mouth Active GVOKE HYPOPEN 2-PACK 0.5 MG/0.1ML SOAJ INJECT 0.1 ML SUB-Q DIRECTED 2 mL 2 Active ezetimibe (ZETIA) 10 MG tablet Take 1 tablet by mouth once daily 90 tablet 2 Active Insulin Disposable Pump (Omnipod Classic Pods, Gen 3,) MISC Inject 1 Each subcutaneously every 2 days 30 Each 5 2 Active atorvastatin (Lipitor) 80 MG tablet TAKE 1 TABLET BY MOUTH ONCE DAILY AT BEDTIME 90 tablet 2 Active HumaLOG KWIKPEN 200 UNIT/ML 3 Active Ozempic, 2 MG/DOSE, 8 MG/3ML pen 4 Active aspirin (Aspirin) 81 MG chew tablet Take 1 (one) tablet by mouth 4 Active cyclobenzaprin e (Flexeril) 10 MG tablet Take 1 (one) tablet by mouth at bedtime Active FeroSul 325 (65 Fe) MG tablet 4 Active fluticasone propionate (Flonase) 50 MCG/ACT nasal spray INSTILL 2 SPRAYS IN NOSTRIL(S) ONCE A DAY FOR RHINITIS (MUST BE USED DIRECTED FOR MINIMUM OF 21 DAYS TO PROVIDE ADEQUATE BENEFITS) 4 Active hydrOXYzine HCl (Atarax) 25 MG tablet Take 1 (one) tablet by mouth every 6 hours as needed Active leflunomide (Arava) 20 MG tablet Take 1 (one) tablet by mouth once daily 4 Active Multiple Vitamin (Multi-Vitamin ) TABS Take 1 (one) tablet by mouth Active omeprazole (PriLOSEC) 40 MG capsule TAKE 1 CAPSULE BY MOUTH ONCE DAILY TO PREVENT NSAID SE 4 Active tadalafil (Cialis) 20 MG tablet Take 1 tablet as needed by oral route. Active blood glucose (Accu-Chek Guide) test stripIndicatio ns:Controlled type 2 diabetes mellitus without complication, with long-term current use of insulin (HCC) Use 1 (one) strip once daily 100 strip 5 Active losartan (Cozaar) 25 MG tablet Take 0.5 (one-half) tablet by mouth once daily Active Blood Glucose Monitoring Suppl (Accu-Chek Guide) w/Device KITIndications :Diabetes mellitus type 2, insulin dependent (HCC) Use 1 Each as directed 1 Each 5 Active blood glucose (Accu-Chek Guide) test stripIndicatio ns:Diabetes mellitus type 2, insulin dependent (HCC) Use 1 (one) strip once daily as needed for Other (as calibration with continous glucose monitor) 100 strip 3 5 Active Accu-Chek FastClix LancetsIndicat ions:Diabetes mellitus type 2, insulin dependent (HCC) Use once daily as needed (as calibration with continuous glucose monitor) 100 Each 3 5 Active Blood Glucose Monitoring Suppl (Accu-Chek Guide) w/Device KITIndications :Controlled type 2 diabetes mellitus without complication, with long-term current use of insulin (HCC) Use 1 Each once daily 1 Each 5 Active Active Problems Problem Noted Date Diagnosed Date Dyslipidemia 11/06/2017 Insulin pump status, using U500 in pump 11/01/19 17 Essential hypertension 01/26/2016 Diabetes mellitus type II, c ontrolled, with no complications 10/27/2015 Mixed hyperlipidemia 10/27/2015 Hypertension with goal blood pressure less than 140/90 10/27/2015 Morbid obesity 10/27/2015 ANMOL (obstructive sleep apnea) 10/27/2015 Encounters Date Type Department Care Team Description 03/31/2025 Telephone [facility] Endocrinology [address], [address] [place] [address] Michael Membreno MD MEDICATION REFILL 03/27/2025 10:40 AM CDT Office Visit [facility] Endocrinology [address], [address] [place] [address] Michael Membreno MD Diabetes mellitus type 2, [...] on file Legal Sex Male 6:21 AM SELECTOR PACKER Gender Identity Not on file Sexual Orientation Not on file 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 on file Not on file Not on file Last Filed Vital Signs Vital Sign Reading Time Taken Comments Blood Pressure 144/76 05/22/2024 10:24 AM SELECTOR PACKER Pulse 84 05/27/2015 10:57 AM SELECTOR PACKER Temperature 37.2 C (99 F) 05/27/2015 10:57 AM SELECTOR PACKER Respiratory Rate 16 05/27/2015 10:57 AM SELECTOR PACKER Oxygen Saturation - - Inhaled Oxygen Concentration - - Weight 167.8 kg (370 lb) 05/22/2024 10:24 AM SELECTOR PACKER Height 177.8 cm (5' 10) 05/22/2024 10:24 AM SELECTOR PACKER Body Mass Index 53.09 05/22/2024 10:24 AM SELECTOR PACKER Plan of Treatment Upcoming Encounters Date Type Department Care Team (Late st Contact Info) Description 08/18/2025 11:20 AM SELECTOR PACKER Office Visit [facility] - Endocrinology [address], [address] [place] [address] Michael Membreno MD [address] [place] [address] Health Maintenance Due Date Last Done Comments COLOGUARD (AGES 45-75) - COLON CA SCREENING 1969 COLON MONITORING 1969 COLONOSCOPY - COLON CA SCREENING 1969 CT COLONOGRAPHY - COLON CA SCREENING 1969 Colorectal Cancer Screening 1969 FIT - COLON CA SCREENING 1969 FLEX SIG - COLON CA SCREENING 1969 MEDICARE AWV 12 MONTHS 1969 HIV SCREENING 1984 HEPATITIS C SCREENING 08/17/1987 HEPATITIS B VACCINE (1 of 3 - 19+ 3-dose series) 1988 PNEUMOCOCCAL VACCINE 50+ (1 of 2 - PCV) 1988 ZOSTER VACCINE (1 of 2) 2019 DEPRESSION SCREENING 07/17/2024 DIABETES - URINE PROTEIN SCREENING 07/17/2024 05/22/2024, 08/25/2022, 09/24/2021, Additional history exists COVID-19 VACCINE ( - season) 2025 05/20/2021, 10/21/2020 INFLUENZA VACCINE (#1) 2025 , 04/21/2023, 05/17/2022, Additional history exists DIABETES RETINOPATHY SCREENING 04/03/2025 04/03/2023 (Done Outside Per Patient), 01/26/2016 DIABETES-SERUM CREATININE 05/22/20252023, 09/05/2022, 08/25/2022, Additional history exists DIABETES-HGB A1C 09/24/2025 03/27/2025, 12/2023, 05/03/2023, Additional history exists DIABETES-FOOT EXAM WITH MONOFILAMENT 03/27/2026 03/27/2025, 07/28/2015 DTAP/TDAP/TD VACCINES (2 - Td or Tdap) 05/15/2027 05/15/2017 HIB VACCINE Aged Out No longer eligi [...] URINE RANDOM PANEL Routine 05/22/2024 11:19 AM SELECTOR PACKER Diabetes mellitus type 2, insulin dependent COMPREHENSIVE METABOLIC PANEL Routine 05/22/2024 11:19 AM SELECTOR PACKER Diabetes mellitus type 2, insulin dependent HM DIABETES EYE EXAM Routine 01/26/2016 from Last 3 Months or Most Recently Relevant to Health Maintenance Results * HEMOGLOBIN A1C - POINT OF CARE (AMB) (03/27/2025 10:40 AM CDT) Hemoglobin A1c POCT 6.3 % [facility] Expiration Date [facility] Lot # [id number] [facility] QC Verified Yes Yes [facility] Blood BLOOD SPECIMEN / Unknown 03/27/2025 10:40 AM CDT Michael Membreno MD LAB - POINT OF CARE ORDERAB LES Final Result [facility] [address], [facility] [address] [place] [id number] [phone] * (ABNORMAL) MICROALB/CREAT RATIO URINE RANDOM PANEL (05/22/2024 11:19 AM SELECTOR PACKER) Creatinine Urine 114.35 mg/dL [facility] ACCOUNT BILL Microalbumin Urine 4.0 mg/dL [facility] ACCOUNT BILL Microalbumin/Crea tinine Ratio 34(H) <30 mg/g [facility] ACCOUNT BILL Urine URINE SPECIMEN OBTAINED BY CLEAN CATCH PROCEDURE / Unknown 05/22/2024 11:19 AM SELECTOR PACKER 05/22/2024 Narrative [facility] ACCOUNT BILL - 05/22/2024 4:09 PM SELECTOR PACKER Performed at: [address] [place] [address] [place] [id number] Obstetrics Gynecology Md: Geovanny Garza MD, Phone: [phone] Michael Membreno MD LAB - URINE CHEMISTRY ORDER RONALD Final Result Performing Organization Address City/[facility]/ZIP Co de Phone Number [facility] ACCOUNT BILL [address] [place] [address] * (ABNORMAL) COMPREHENSIVE METABOLIC PANEL (05/22/2024 11:19 AM SELECTOR PACKER) Glucose 165(H) 70 - 99 mg/dL [facility] [...] BLOOD SPECIMEN / Unknown 05/22/2024 11:19 AM SELECTOR PACKER 05/22/2024 Narrative [facility] ACCOUNT BILL - 05/22/2024 4:09 PM SELECTOR PACKER Performed at: [address] [place] [id number] Obstetrics Gynecology Md: Geovanny Garza MD, Phone: [phone] us Michael Membreno MD LAB - CHEMISTRY ORDERABLES Final Result Performing Organization Address City/State/[facility] Co de Phone Number [facility] ACCOUNT BILL [address] [place] [address] * DIABETES EYE EXAM (01/26/2016) us Provider Unknown HEALTH MAINTENANCE Final Result from Last 3 Months or Most Recently Relevant to Health Maintenance [facility] Care Teams Sound Designer Relationship Specialty Start Date End Date Magdy Guzman MD [facility] [place] [id number] PCP - General Family Medicine 03/17/21 Derrick Saeed MD Referring Physician Plastic and Reconstructive Surgery 05/26/15 Partha Miles MD Radiation Oncologist Radiation Oncology 05/26/15
--- OUTSIDE RECORDS SUMMARY | 2025-06-17 13:38 | XMS_ITS | Clinical Summary ---
Author Organization [facility] Address [address] [place] [address] Care Team Providers Care Addictions Counselor Assistant Name Role Phone Wendy Hernandez MD Unavailable [phone] Fabian Cervantes MD Unavailable [phone] Joana Christopher RN Unavailable Unavailable [facility] Primary Care Pro vider Poonam Collins [...] (HumuLIN R) 500 unit/mL CONCENTRATED vial for injectionIndicat ions:Diabetes Mellitus with Severe Insulin Resistance USE 300 [...] Active coenzyme Q10 400 mg capsule daily Active polyethylene glycol (MIRALAX) 17 gram packetIndication s:constipation Take 1 packet (17 g total) by mouth 2 (two) times a day as needed Active ammonium lactate (AMLACTIN) 12 % cream APPLY TO THICK ROUGH SKIN ON THE LEGS NECK AND ARM PITS 10/16/19 21 Active traMADoL (ULTRAM) 50 mg tablet Take 2 tablets (100 mg total) by mouth 3 (three) times a day Active HYDROcodone-acet aminophen (NORCO) 7.5-325 mg per tablet as needed [...] by mouth daily 02/06/20 24 Active multivitamin tabletIndication s:Vitamin Deficiency Prevention Take 1 tablet by mouth Active Dexcom G6 Sensor device 03/04/20 24 Active losartan (COZAAR) 25 mg tablet Take 0.5 tablets (12.5 mg total) by mouth daily 15 tablet 11 02/05/20 25 026 Active hydrALAZINE (APRESOLINE) 100 mg tablet Take 1 tablet (100 mg total) by mouth 3 (three) times a day 90 tablet 1 04/02/20 25 025 Active Active Problems Problem Noted Date Diagnosed [...] (12/23/2019): Added automatically from request for surgery [id number] Acanthosis nigricans 09/23/2019 Acute urticaria 09/23/2019 Enlarged [...] cardiac cath. Insulin pump adjusted due to inventory control/shipping receiving hypoglycemia when NPO for cath. Patient will be discharged home today Recommendations: Resumehome Metformin on discharge Insulin Pump ON and FUNCTIONING Patient is mentally and physically capable of operating insulin pump Continue pump and basal-bolus dosing as shown below: Pump model: Omnipod with Freestyle Johanny CGM [...] outpatient Endocrinology follow-up upon discharge; Dr. Michael Memrbeno Encounters Date Type Department Care Team Description 05/08/2025 1:20 PM CDT Office Visit [facility] Cardiology [address] [place] [address] Medical Office Building [address] [place] [address] Fabian Cervantes MD Chronic systolic heart failure (HCC) (Primary Dx); Hypertension, essential; Cardiomyopathy, ischemic 05/08/2025 11:30 AM CDT Ancillary Procedure [facility] [address] [place] [address] [address] [place] [address] Chronic systolic heart failure (HCC) 05/07/2025 Telephone [facility] Transplant Heart [address] Count Includes [facility] [address] Mailstop [phone] [place] [address] Joana Christopher RN 04/02/2025 Telephone [facility] Cardiology [address] [facility] Advanced Medicine 8th [place] [address] [place] [address] Fabian Cevrantes MD 04/02/2025 Telephone [facility] Cardiology [address] [facility] 8th [place] [address] [place] [address] Fabian Cervantes MD from Last 3 Months Immunizations Immunization Administration Dates Next Due Influenza, Quadrivalent, Spl it, Preservative Free, Intramuscular 05/02/2021 Influenza, Trivalent, IM (MDV) 05/13/2015 [employer] ([facility]) SARS-CoV-2 Vaccination 10/21/2020 Tdap 05/15/2017 Surgical History Surgery Date Site/Laterality Comments NE BIOPSY BONE TROCAR/NEEDLE SUPERFICIAL Biopsy Bone - (Added by TW Conv) NE TONSILLECTOMY PRIMARY/SEC ONDARY <AGE 12 Tonsillectomy - (Added by Conv) FRACTURE SURGERY Left leg KELOID EXCISION [...] on file Legal Sex Male 11:58 PM SIGNALING PROJECT ENGINEER Gender Identity Not on file Sexual Orientation Straight 07/23/2020 6: 40 AM SIGNALING PROJECT ENGINEER Last Filed Vital Signs Vital Sign Reading Time Taken Comments Blood Pressure 132/64 05/08/2025 12:49 PM CDT Pulse 100 05/08/2025 12:49 PM CDT Temperature 36.8 C (98.3 F) 01/22/2025 3:56 PM CDT Respiratory Rate 14 01/26/2023 3:00 PM CDT Oxygen Saturation 97% 05/08/2025 12:49 PM CDT Inhaled Oxygen Concentration - - Weight 158.8 kg (350 lb) 05/08/2025 12:49 PM CDT Height 177.8 cm (5' 10) 01/22/2025 3:56 PM CDT Body Mass Index 50.22 01/22/2025 3:56 PM CDT Plan of Treatment [...] history exists Medical Devices Implanted Type Area Pencils Washer Device Identifier Shelf Expiration Date Model / Serial / Lot [employer] [id number] Palacos R+G High Viscosity Cement Bone Gentamicin Arthroplasty - [id number] Implanted:Qty: 1 on 04/30/2021 by Wendy Hernandez MD at [facility] Left: Knee [employer] 09/14/2023 [id number] / / [id number] [employer] [id number] Palacos R+G High Viscosity Cement Bone Gentamicin Arthroplasty - [id number] Implanted:Qty: 1 on 04/30/2021 by Wendy Hernandez MD at [facility] Left: Knee [employer] 09/14/2023 [id number] / / [id number] [employer] [id number] Vanguard 67.5mm Cruciate Retaining Cemented Primary Knee Left - [id number] Implanted:Qty: 1 on 04/30/2021 by Wendy Hernandez MD at [facility] Left: Knee [employer] [id number] 01/07/2029 [id number] / / [id number] [employer] [id number] 79mm I Beam Knee Tray Tibial Cocr - [id number] Implanted:Qty: 1 on 04/30/2021 by Wendy Hernandez MD at [facility] Left: Knee [employer] 11/04/2030 [id number] / / [id number] [employer] [id number] Ascent 34mm 1 Peg Wire Knee Anterior Posterior Component Patellar - [id number] Implanted:Qty: 1 on 04/30/2021 by Wendy Hernandez MD at [facility] Left: Knee [employer] [id number] 03/29/2026 [id number] / / [id number] [employer] [id number] Vanguard [id number] Anterior Stabilize Inlay Knee 0d Bearing - [id number] Implanted:Qty: 1 on 04/30/2021 by Wendy Hernandez MD at [facility] Left: Knee [employer] [id number] 12/23/2025 [id number] / / [id number] [employer] 79mm I Beam Knee Tray Tibial Cocr [id number] - [id number] Implanted:Qty: 1 on 10/29/2021 by Wendy Hernandez MD at [facility] Right: Knee [employer] 03/15/2031 [id number] / / [id number] [employer] Vanguard 70mm Cruciate Retaining Cemented Primary Knee Right [id number] - [id number] Implanted:Qty: 1 on 10/29/2021 by Wendy Hernandez MD at [facility] Right: Knee [employer] [id number] 01/26/2031 [id number] / / [id number] [employer] [id number] Anterior Stabilize Inlay Knee 0d Bearing - [id number] Implanted:Qty: 1 on 10/29/2021 by Wendy Hernandez MD at [facility] Right: Knee [employer] [id number] 06/23/2026 [id number] / / [id number] [employer] [id number] Palacos R High Viscosity Cement 40gm Bone Green - [id number] Implanted:Qty: 1 on 10/29/2021 by Wendy Hernandez MD at [facility] Right: Knee [employer] 11/13/2024 [id number] / / [id number] [employer] [id number] Palacos R High Viscosity Cement 40gm Bone Green - [id number] Implanted:Qty: 1 on 10/29/2021 by Wendy Hernandez MD at [facility] Right: Knee [employer] 11/13/2024 [id number] / / [id number] [employer] Ascent 37mm 1 Peg Wire Knee Anterior Posterior Component Patellar [id number] - [id number] Implanted:Qty: 1 on 10/29/2021 by Wendy Hernandez MD at [facility] Right: Knee [employer] [id number] 12/04/2025 [id number] / / [id number] Procedures Procedure Name Priority Date/Time Associated Diagnosis Comments TRANSTHORACIC ECHO (TTE) COMPLETE W DOPPLER/CF W CONTRAST Routine 05/08/2025 12:19 PM CDT Chronic systolic heart failure (HCC) RENAL FUNCTION PANEL Routine 01/20/2025 11:51 AM [...] 2:07 AM CDT HEPATITIS PANEL, ACUTE Routine 8 10:41 AM SIGNALING PROJECT ENGINEER Proteinuria, unspecified type from Last 3 Months or Most Recently Relevant to Health Maintenance Results * TRANSTHORACIC ECHO (TTE) COMPLETE W DOPPLER/CF W CONTRAST (05/08/2025 12:19 PM CDT) EF Mod BP 69 % CONS SCIMAGE Anatomical Region Laterality Modality Ultrasound 05/08/2025 11:4 3 AM CDT Narrative 05/22/2025 11:28 AM SIGNALING PROJECT ENGINEER [facility] Cardiac Diagnostic Lab [address] , [address] [place] [address] Transthoracic Echocardiographic Report Patient Name: VICKIE SANCHEZ J : 1970 (54y 8m) Sex: M Study Date: 05/08/2025 11:43:49 AM Ht(Inch): 70 Wt(Lb): 354.94 BSA: 2.66 Surgical Aide: Elyssa Car RDCS Location: [facility] Order Provider: FABIAN CERVANTES Heart Rate: 94 BMI: 50.92 BP: 132 / 84 Ref Provider: FABIAN CERVANTES PROCEDURES: Echocardiographic Report: Transthoracic complete echo with strain imaging and contrast, 2D, spectral and tissue Doppler, color flow Doppler, M-mode. Additional Procedures: Myocardial strain imaging was performed. Contrast: Contrast Enhancement was Employed: After initial imaging due to sub- optimal quality related to co-morbidity defined by patient's body habitus, due to suboptimal image quality with inadequate visualization of at least 2 of 16 LV wall segments in any view after initial imaging. Perflutren contrast was administered using the volume necessary to obtain adequate images and. 0.8 ml Optison Administered, (2.2 ml wasted). Technically difficult study due to: Body habitus. Poor acoustic windows. INDICATIONS: Systolic heart failure and Hypertension. CONCLUSIONS: 1. Normal left ventricular size based on volume index. Normal LV wall thickness. Normal left ventricular systolic function. The Ejection Fraction (Kim's) is measured at 69 %. Normal diastolic function. 2. Normal right ventricular systolic function. Dilated RV. 3. There is no significant valvular heart disease. 4. Normal aortic root size at sinuses of Valsalva. 5. Poor with limited visualization of cardiac structures which limits accuracy of certain measurements. COMPARISONS: On visual c/w prior study on 12/19/2022, there has been a decrease in HR and probably small decrease in LVSF, technically very challenging images make the comparison difficult. ATTESTATION: I have personally reviewed and interpreted this study without fellow or resident. DISCLAIMER: The study images and the final report will be retained in the patient chart by the Echo Laboratory for the legally required time period. This chart constitutes the legal record of any testing performed. FINDINGS: Study Quality: Poor with limited visualization of cardiac structures which limits accuracy of certain measurements. Left Ventricle: Normal left ventricular size based on volume index. Normal LV wall thickness. Normal left ventricular systolic function. The Ejection Fraction (Kim's) is measured at 69 %. Normal diastolic function. Unable to assess global longitudinal strain due to image quality. Right Ventricle: Normal right ventricular systolic function. Dilated RV. Left Atrium: The left atrium is normal in size. Right Atrium: The right atrium is not well visualized due to poor acoustic windows. Atrial Septum: Normal interatrial septum. Mitral Valve: Normal mitral valve structure. No mitral regurgitation. No stenosis present. Aortic Valve: Trileaflet aortic valve. No aortic regurgitation. No aortic valve stenosis. The aortic valve area by the continuity equation (using VTI) is 2.5 cm2. Aortic valve dimensionless index is 0.71. Tricuspid Valve: Normal tricuspid valve structure. Trace tricuspid regurgitation. No tricuspid valve stenosis. Pulmonic Valve: Normal pulmonic valve structure. No pulmonic regurgitation. No pulmonic valve stenosis present. Pericardium: No pericardial effusion. Aorta: Normal aortic root size at sinuses of Valsalva. Abd Ao not well visualized. IVC: IVC not visualized due to poor acoustic windows. MEASUREMENTS: 2D/MM Value Range Doppler Value Range LVIDd 2D 5.5 cm [ 4.2 - 5.8 ] AV Peak Nicola 1.6 m/s [ 1.0 - 1.7 ] LVIDs 2D 3.1 cm [ 2.5 - 4.0 ] AV Peak PG 10 mmHg IVSd 2D 1.0 cm [ 0.6 - 1.0 ] AV Mean PG 5 mmHg LVPWd 2D 0.9 cm [ 0.6 - 1.0 ] AV VTI 28 cm LV Thickness Ratio 1.1 LVOT Peak Nicola 1.0 m/s [ 0.7 - 1.1 ] LV FS 2D 34.86 % [ 25.00 - 43.00 ] LVOT Peak PG 4 mmHg LV Mass 2D 203.28 g LVOT Mean PG 2 mmHg LV Mass Index 2D 76.32 g/m2 LVOT VTI 20 cm RWT 0.33 LVOT Diam 2.1 cm EDV Mod BP 102 ml [ 62 - 150 ] MARÍA VTI 2.5 cm2 LV EDV Index 38 ml/m2 LVOT/AV VTI 0.71 - Dimensionless index (DVI) ESV Mod BP 32 ml [ 21 - 61 ] MV E Peak Nicola 0.77 m/s [ 0.60 - 1.30 ] EF Mod BP 69 % [ 52 - 72 ] MV A Peak Nicola 0.59 m/s [ 1.00 - 1.20 ] LA Length 4C 6.3 cm MV E/A 1.3 ratio [ 0.8 - 1.5 ] LA Length 2C 5.2 cm MV Decel [place] 463 LA Volume BP 59 ml MV Decel Time 167 msec [ 104 - 258 ] LA Volume Index 22 ml/m2 [ 16 - 34 ] Med E` Nicola 9.2 cm/sec [ 8.0 - 25.0 ] TAPSE 1.9 cm [ 1.7 - 5.0 ] Lat E` Nicola 9.1 cm/sec [ 10.0 - 25.0 ] AoR Diam 2D 3.5 cm [ 3.1 - 3.7 ] Average E/E` 8 Ao Root Index 1.3 cm/m2 [ 1.0 - 2.0 ] RV S` 14.1 cm/sec PV Peak Nicola 1.1 m/s [ 0.4 - 0.8 ] PV Peak PG 5 mmHg Electronically Signed By: Oralia Trimble M.D. 05/22/2025 11:27:58 AM SIGNALING PROJECT ENGINEER CC: Fabian Cervantes MD Procedure Note Oralia Trimble MD - 05/22/2025 [facility] Cardiac Diagnostic Lab [address] , [address] [place] [address] Transthoracic Echocardiographic Report Patient Name: VICKIE SANCHEZ J : 1970 (54y 8m) Sex: M Study Date: 05/08/2025 11:43:49 AM Ht(Inch): 70 Wt(Lb): 354.94 BSA: 2.66 Surgical Aide: Elyssa Car RDCS Location: [facility] Order Provider:FABIAN CERVANTES Heart Rate: 94 BMI: 50.92 BP: 132 / 84 Ref Provider: FABIAN CERVANTES PROCEDURES: Echocardiographic Report: Transthoracic complete echo with strain imagingand contrast, 2D, spectral and tissue Doppler, color flow Doppler, M-mode. Additional Procedures: Myocardial strain imaging was performed. Contrast: Contrast Enhancement was Employed: After initial imaging due tosub- optimal quality related to co-morbidity defined by patient's body habitus, due tosuboptimal image quality with inadequate visualization of at least 2 of 16 LV wallsegments in any view after initial imaging. Perflutren contrast was administered using thevolume necessary to obtain adequate images and. 0.8 ml Optison Administered, (2.2ml wasted). Technically difficult study due to: Body habitus. Poor acoustic windows. INDICATIONS: Systolic heart failure and Hypertension. CONCLUSIONS: 1. Normal left ventricular size based on volume index. Normal LV wallthickness. Normal left ventricular systolic function. The Ejection Fraction (Kim's) ismeasured at 69 %. Normal diastolic function. 2. Normal right ventricular systolic function. Dilated RV. 3. There is no significant valvular heart disease. 4. Normal aortic root size at sinuses of Valsalva. 5. Poor with limited visualization of cardiac structures which limitsaccuracy of certain measurements. COMPARISONS: On visual c/w prior study on 12/19/2022, there has been a decrease in HR andprobably small decrease in LVSF, technically very challenging images make the comparisondifficult. ATTESTATION: I have personally reviewed and interpreted this study without fellow orresident. DISCLAIMER: The study images and the final report will be retained in the patientchart by the Echo Laboratory for the legally required time period. This chart constitutesthe legal record of any testing performed. FINDINGS: Study Quality: Poor with limited visualization of cardiac structures whichlimits accuracy of certain measurements. Left Ventricle: Normal left ventricular size based on volume index. NormalLV wall thickness. Normal left ventricular systolic function. The EjectionFraction (Kim's) is measured at 69 %. Normal diastolic function. Unable to assess globallongitudinal strain due to image quality. Right Ventricle: Normal right ventricular systolic function. Dilated RV. Left Atrium: The left atrium is normal in size. Right Atrium: The right atrium is not well visualized due to poor acousticwindows. Atrial Septum: Normal interatrial septum. Mitral Valve: Normal mitral valve structure. No mitral regurgitation. Nostenosis present. Aortic Valve: Trileaflet aortic valve. No aortic regurgitation. No aorticvalve stenosis. The aortic valve area by the continuity equation (using VTI) is 2.5 cm2.Aortic valve dimensionless index is 0.71. Tricuspid Valve: Normal tricuspid valve structure. Trace tricuspidregurgitation. No tricuspid valve stenosis. Pulmonic Valve: Normal pulmonic valve structure. No pulmonicregurgitation. No pulmonic valve stenosis present. Pericardium: No pericardial effusion. Aorta: Normal aortic root size at sinuses of Valsalva. Abd Ao not wellvisualized. IVC: IVC not visualized due to poor acoustic windows. MEASUREMENTS: 2D/MM Value Range DopplerValue Range LVIDd 2D 5.5 cm [ 4.2 - 5.8 ] AV Peak Vel1.6 m/s [ 1.0 - 1.7 ] LVIDs 2D 3.1 cm [ 2.5 - 4.0 ] AV Peak PG10 mmHg IVSd 2D 1.0 cm [ 0.6 - 1.0 ] AV Mean PG5 mmHg LVPWd 2D 0.9 cm [ 0.6 - 1.0 ] AV VTI28 cm LV Thickness Ratio 1.1 LVOT Peak Vel1.0 m/s [ 0.7 - 1.1 ] LV FS 2D 34.86 % [ 25.00 - 43.00 ] LVOT Peak PG4 mmHg LV Mass 2D 203.28 g LVOT Mean PG2 mmHg LV Mass Index 2D 76.32 g/m2 LVOT VTI20 cm RWT 0.33 LVOT Diam2.1 cm EDV Mod BP 102 ml [ 62 - 150 ] MARÍA VTI2.5 cm2 LV EDV Index 38 ml/m2 LVOT/AV VTI0.71 - Dimensionless index (DVI) ESV Mod BP 32 ml [ 21 - 61 ] MV E Peak Vel0.77 m/s [ 0.60 - 1.30 ] EF Mod BP 69 % [ 52 - 72 ] MV A Peak Vel0.59 m/s [ 1.00 - 1.20 ] LA Length 4C 6.3 cm MV E/A1.3 ratio [ 0.8 - 1.5 ] LA Length 2C 5.2 cm MV Decel [id number] LA Volume BP 59 ml MV Decel Nigu016 msec [ 104 - 258 ] LA Volume Index 22 ml/m2 [ 16 - 34 ] Med E` Vel9.2 cm/sec [ 8.0 - 25.0 ] TAPSE 1.9 cm [ 1.7 - 5.0 ] Lat E` Vel9.1 cm/sec [ 10.0 - 25.0 ] AoR Diam 2D 3.5 cm [ 3.1 - 3.7 ] Average E/E`8 Ao Root Index 1.3 cm/m2 [ 1.0 - 2.0 ] RV S`14.1 cm/sec PV Peak Nicola 1.1 m/s [ 0.4 - 0.8 ] PV Peak PG 5 mmHg Electronically Signed By: Oralia Trimble M.D. 05/22/2025 11:27:58 AM SIGNALING PROJECT ENGINEER CC: Fabian Cervantes MD Fabian Cervantes MD CV ECHO PROCEDURES Final Re sult * (ABNORMAL) Renal function panel (01/20/2025 11:51 [...] 01/21/2025 8:11 AM CDT Performed at: - [facility] [id number] Die Attaching Machine Tender: Karan Ray PhD, Phone: [phone] Annette Loco MD LAB BLOOD ORDERABLES Final Resul t Performing Organization Address City/[facility] Co de Phone Number [facility] - 01 * (ABNORMAL) Hemoglobin A1c (10/11/2021 2:22 PM CDT) Pathologist [facility] Hgb A1C 6.5(H) 4.0 - 5.6 % [facility] Estimated Average Glucose 140 mg/dL [facility] Comment: The ADA recommends reporting an estimated Average Glucose (eAG) with all Hemoglobin A1c results using the equation derived from a study of 507 normal and diabetic adults. Minority populations were underrepresented and children were not included. (Diabetes Care 31:8019-8376, 2008). The eAG is not equivalent to a fasting glucose. Blood 10/11/2021 2:22 PM CDT 10/11/2021 3:47 PM CDT Wendy Hernandez MD LAB BLOOD ORDERABLES Final Result Performing Organization Address City/[facility]/ZIP Co de Phone Number [facility] [address] [facility] Department [place] [address] * Lipid panel (05/01/2021 2:07 AM CDT) Pathologist [facility] Cholesterol 166 30 - 199 mg/dL [facility] Comment: Interpretive Data Ages < [...] Pediatrics 2011;128:S213 2. NCEP Expert Panel. Circulation 2003;110:227 Current Interpretive Data was last revised on 2018. Testing performed by: [facility], [address] [place] [address]., [address] Triglycerides 86 <=149 mg/dL [facility] Comment: Interpretive Data Ages < [...] last revised on 2018. Testing performed by: [facility], [address] [place] [address]., [address] HDL 40 >=40 mg/dL [facility] Comment: Interpretive Data Ages < [...] last revised on 2018. Testing performed by: [facility], [address] [place] [address]., [address] LDL, calculated 109 <=129 mg/dL [facility] Comment: Interpretive Data Ages < [...] last revised on 2018. Testing performed by: [facility], [address] [place] [address]., [address] Non-HDL Cholesterol 126 mg/dL [facility] Comment: Interpretive Data Ages < or [...] last revised on 2018. Testing performed by: [facility], [address] [place] [address]., [address] Chol/HDL ratio 4 [facility] Comment:Testing performed by : [facility], [address] [place] [address]., [address] Blood 05/01/2021 2:07 AM CDT 05/01/2021 7:45 AM CDT us Loco Harry MD LAB BLOOD ORDERABLES Final Res ult [facility] [address] [place] [facility] Department [place] [address] * Hepatitis panel, acute (07/12/2018 10:41 AM SIGNALING PROJECT ENGINEER) Hep A IgM Nonreactive Nonreactive [facility] Comment: Interpretive Data If test is reported as GRAYZONE, new sample should be drawn in two weeks for testing. Current interpretive data was last revised on 2016. Hep B core IgM Nonreactive Nonreactive [facility] Comment: Interpretive Data If test is reported as GRAYZONE, new sample should be drawn for testing. Current interpretive data was last revised on 2016. Hep C Ab Nonreactive Nonreactive [facility] Comment: Interpretive Data Positive results should be confirmed by a molecular method. If positive, a second separately collected sample should be submitted for Hepatitis C Virus (HCV) RNA Detection and Quantitation by Real-Time Reverse Telegraphic Typewriter Repairer-PCR (RT-PCR). Current interpretive data was last revised on 2016. HepBsAg Nonreactive Nonreactive [facility] Blood specimen (specimen) 07/12/2018 10:41 AM SIGNALING PROJECT ENGINEER 07/12/2018 10:48 AM SIGNALING PROJECT ENGINEER Narrative [facility] - 07/12/2018 12:42 PM SIGNALING PROJECT ENGINEER Annette Loco MD LAB MICROBIOLOGY - GENERAL ORDER RONALD Edited Result - Final [facility] [place] [address] from Last 3 Months or Most Recently Relevant to Health Maintenance Insurance [facility] MEDICARE ADVANTAGE [facility] ACCESS CHOICE [facility] ACCESS CHOICE Member Subscriber Plan / Payer (Ef fective 2019-Present) Name:Vickie Sanchez Relation to Subscriber:Self Name:Medina Sancheztom Bautista Payer ID:[id number] (NA) Type:[employer] Address: [address] BUREAU OF DISABILITY [facility] MEDICARE ADVANTAGE Advance Directives For more information, please contact: [phone] * Full Code (Latest Code Status on File) Date Activated Date Inactivated Comments 10/29/2021 12:05 PM 10/31/2021 7:45 PM * Full Code Date Activated Date Inactivated Comments 04/30/2021 11:07 AM 05/02/2021 10:51 PM * Full Code Date Activated Date Inactivated Comments 12/13/2019 10:29 PM 12/25/2019 4:17 PM Care Teams Addictions Counselor Assistant Relationship Specialty Start Date End Date [facility], Kashif Carter [address] [place] [address] PCP - General Genetics 04/11/24 [place] [address] [place] [address] Surgeon Orthopedic Surgery 05/01/21 [place] [address] [place] [address] Referring Physician Cardiology 03/28/22 Joana Christopher, food and drug research scientist Failure Coordinator Transplant 08/16/23 Poonam Collins, food and drug research scientist Failure Coordinator Cardiology 06/20/24 Maisha Lee Primary Post Closing Specialist 04/03/25
--- OUTSIDE RECORDS SUMMARY | 2025-06-17 13:38 | XMS_ITS | Encounter Summary ---
Author Organization [employer] Address [address] [place] [address] Care Team Providers Care Display Artist Name Role Phone Magdy Guzman MD Primary Care Provider [phone] Encounter Details Date Type Department Care Team (Late st Contact Info) Description 09/18/2005 [facility] [address] [facility] 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
--- OUTSIDE RECORDS SUMMARY | 2025-06-17 13:38 | XMS_ITS | Encounter Summary ---
Author Organization [facility] Address [address] [place] [address] Care Team Providers Care Shirt Bander Name Role Phone Magdy Guzman MD Primary Care Provider [phone] Encounter Details Date Type Department Care Team (Late st Contact Info) Description 11/24/2004 [facility]patient [facility] 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
--- OUTSIDE RECORDS SUMMARY | 2025-06-17 13:38 | XMS_ITS | Encounter Summary ---
Author Organization [facility] Address [address] [place] [address] Phone Care Team Providers Care Measurement Supervisor Name Role Phone Wendy Hernandez MD Unavailable [phone] Shahzad Nair MD Primary Care Provider [phone] Joana Christopher RN Unavailable Unavailable Fabian Duran MD Unavailable Nilda Henley RN Unavailable [phone] Joana Christopher RN Unavailable Unavailable Joana Christopher RN Unavailable Unavailable [facility] Primary Care Pro vider Poonam Collins RN Unavailable Unavailab Maisha Crandall Unavailable Unavailable Encounter Details Date Type Department Care Team (Latest Contact Info) Description 06/20/2022 Orders Only [facility] Scanning, Provider Social History Tobacco Use [...] on file 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 Gender Identity Not on file Sexual Orientation Straight 07/23/2020 6: 40 AM HOUSE CARPENTER documented as of this encounter Plan of Treatment Not on file documented as of this encounter Procedures Procedure Name Priority Date/Time Associated Diagnosis Comments SCAN - LABS 06/20/2022 documented in this encounter Results * SCAN - LABS (06/20/2022) us Provider Scanning Edited Result - Final documented in this encounter Visit Diagnoses Not on filedocumented in this encounter Care Teams Measurement Supervisor Relationship Specialty Start Date End Date Shahzad Nair MD [address] [place] [address] [place] [address] PCP - General 10/29/21 04/10/24 [facility], Kashif Poseyran [address] [place] [address] PCP - General Genetics 04/11/24 [place] [address] [address] Surgeon Orthopedic Surgery 05/01/21 Joana Christopher, wire coiler machine operatorManager Money Cardiology 03/28/22 08/16/23 Fabian Duran MD Referring Physician Cardiology 03/28/22 Nilda Henley, RN [address] [facility] [address] [place] [address] Manager Money Cardiology 03/28/22 Joana Christopher, academic support coordinator Failure Coordinator 08/03/23 4 Joana Christopher, academic support coordinator Failure Coordinator Transplant 08/16/23 Poonam Collins academic support coordinator Failure Coordinator Cardiology 06/20/24 Maisha Lee Primary Automotive Artist 04/03/25 documented as of this encounter
--- OUTSIDE RECORDS SUMMARY | 2025-06-17 13:38 | XMS_ITS | Clinical Summary ---
Author Organization [facility] Address [address] [place] [address] Phone Care Team Providers Care Sagger Soak Name Role Phone Magdy Guzman MD Primary Care Provider [phone] Allergies Active Allergy Reactions Criticality Noted Date [...] jonah-dexamethaso ne (MAXITROL) 3.5mg/mL-10,000 unit/mL-0.1 % suspension zapfuocy-vhnfbiwuj-s exameth 3.5 mg/mL-10,000 unit/mL-0.1% eye drops Active [...] TAKE 2 TABLETS BY MOUTH IN THE MARKETING PLANNING MANAGER BEFORE BREAKFAST. 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
--- OUTSIDE RECORDS SUMMARY | 2025-06-17 13:38 | XMS_ITS | Encounter Summary ---
Author Organization [employer] Address [address] [place] [address] Care Team Providers Care Melter Loader Name Role Phone Magdy Guzman MD Primary Care Provider Encounter Details Date Type Department Care Team (Late st Contact Info) Description 10/18/2005 Outpatient Historical [facility] [address] 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
--- OUTSIDE RECORDS SUMMARY | 2025-06-17 13:38 | XMS_ITS | Encounter Summary ---
Author Organization [facility] Address [address] [place] [address] Phone Care Team Providers Care Abalone Fisherman Name Role Phone Wendy Hernandez MD Unavailable [phone] Shahzad Nair MD Primary Care Provider [phone] Joana Christopher RN Unavailable Unavailable Fabian Duran MD Unavailable [phone] Nilda Henley RN Unavailable [phone] Joana Christopher RN Unavailable Unavailable Joana Christopher RN Unavailable Unavailable [facility], [facility] Primary Care Pro vider Poonam [...] on file Legal 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 Male 11:58 PM 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 JACK 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 Gender Identity Not on file Sexual Orientation Straight 07/23/2020 6: 40 AM GRAB JACK MAN documented as of this encounter Plan of Treatment Not on file documented as of this encounter Procedures Procedure Name Priority Date/Time Associated Diagnosis Comments SCAN - LABS 04/25/2022 documented in this encounter Results * SCAN - LABS (04/25/2022) us Provider Scanning Final Result documented in this encounter Visit Diagnoses Not on filedocumented in this encounter Care Teams Abalone Fisherman Relationship Specialty Start Date End Date Shahzad Nair MD [address] [place] [address] [place] [address] PCP - General 10/29/21 04/10/24 [facility], Kashif Carter [address] [place] [address] PCP - General Genetics 04/11/24 [place] [address] [address] Surgeon Orthopedic Surgery 05/01/21 Joana Christopher, keg raiserBody Design Checker Cardiology 03/28/22 08/16/23 Fabian Duran MD Referring Physician Cardiology 03/28/22 Nilda Henley, RN [address] [facility] [address] [place] [address] Body Design Checker Cardiology 03/28/22 Joana Christopher, sewing demonstrator Failure Coordinator 08/03/23 4 Joana Christopher, sewing demonstrator Failure Coordinator Transplant 08/16/23 Poonam Collins RN Heart Failure Coordinator Cardiology 06/20/24 Maisha Lee Primary Diver Pumper 04/03/25 documented as of this encounter
--- OUTSIDE RECORDS SUMMARY | 2025-06-17 13:38 | XMS_ITS | Encounter Summary ---
Author Organization [employer] Address [address] [place] [address] Care Team Providers Care Systems Software Specialist Name Role Phone Magdy Guzman MD Primary Care Provider [phone] Encounter Details Date Type Department Care Team (Late st Contact Info) Description 07/25/2005 Outpatient [facility] [address] [facility] 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
--- OUTSIDE RECORDS SUMMARY | 2025-06-17 13:38 | XMS_ITS | Encounter Summary ---
Author Organization [employer] Address [address] [place] [address] Care Team Providers Care Panel Installer Name Role Phone Magdy Guzman MD Primary Care Provider [phone] Encounter Details Date Type Department Care Team (Late st Contact Info) Description 04/13/2005 Outpatient Historical [facility] Endocrinology & Diabetes Management 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
--- OUTSIDE RECORDS SUMMARY | 2025-06-17 13:38 | XMS_ITS | Clinical Summary ---
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
--- OUTSIDE RECORDS SUMMARY | 2025-06-17 13:39 | XMS_ITS | Encounter Summary ---
Author Organization [facility] Address [address] [facility] [place] [address] Care Team Providers Care Detective Investigator Name Role Phone Derrick Saeed MD Unavailable Partha Miles MD Unavailable Danna Rollins Primary Care Provider Unavailabl e Magdy Guzman MD Primary Care Provider [phone] Encounter Details Date Type Department Care Team (Late st Contact Info) Description 11/23/2020 Lab Requisition [facility] [address] [facility] [place] [address] Leno Smith Jr., MD [address] 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 Not on file Not on file Not on file documented as of this encounter Plan of Treatment Upcoming Encounters Date Type Department Care Team (Late st Contact Info) Description 08/18/2025 11:20 AM MANAGER FINE DINING Office Visit [facility] - Endocrinology [address] [facility] [place] [address] Michael Membreno MD [address] [facility] [address] [place] [address] documented as of this encounter Procedures Procedure Name Priority Date/Time Associated Diagnosis Comments DERMATOPATHOLOGY Routine 11/20/2020 12:0 0 AM CDT documented in this encounter Results * DERMATOPATHOLOGY (11/20/2020 12:00 AM CDT) Case Report Dermatopathology Report Case: [id number] Authorizing Provider: Leno Smith Jr., MD Collected: 11/20/2020 12:00 AM Ordering Location: [facility] Lab Received: 11/23/2020 12:56 PM [...] specimen consists of a shave biopsy measuring [id number]. Jar 0. 1 5:26 PM CDT DERMATOPATHOLOGY [...] characteristic determined by the Dermatopathology Laboratory at [facility], directed by Dr. Leonarda Brandt. These tests need not be, and therefore are not, approved by the [place] Food and Drug Administration. The tests are used for clinical purposes. Billing Codes Specimen Charges Stain Charges 91955 1 1 5:26 PM CDT DERMATOPATHOLOGY LABORATORY Embedded Images 1 5:26 PM CDT DERMATOPATHOLOGY LABORATORY Pathology/Cytolog y TISSUE SPECIMEN FROM SKIN / Unknown 11/20/2020 11/23/2020 12:56 PM CDT Leno Smith Jr., MD LAB - PATHOLOGY/CYTOLOG Y ORDERABLES Final Result DERMATOPATHOLOGY LABORATORY [facility] - Department of Dermatology [facility] Medicine [address] [place] [address], [address] [phone] documented in this encounter Visit Diagnoses Not on filedocumented in this encounter Care Teams Detective Investigator Relationship Specialty Start Date End Date Danna Rollisn Update Information PCP - General 11/23/20 03/16/21 Magdy Guzman MD [facility] [place] [address] PCP - General Family Medicine 03/17/21 Derrick Saeed MD Referring Physician Plastic and Reconstructive Surgery 05/26/15 Partha Miles MD Radiation Oncologist Radiation Oncology 05/26/15 documented as of this encounter
--- OUTSIDE RECORDS SUMMARY | 2025-06-17 13:39 | XMS_ITS | Encounter Summary ---
Author Organization [facility] Address [address] [place] [address] Phone Care Team Providers Care College Athletic Director Name Role Phone Wendy Hernandez MD Unavailable [phone] Shahzad Nair MD Primary Care Provider [phone] Joana Christopher RN Unavailable Unavailable Fabian Duran MD Unavailable Nilda Henley RN Unavailable Joana Christopher RN Unavailable Unavailable Joana Christopher RN Unavailable Unavailable [facility], [facility] Primary Care Pro vider Poonam Collins RN Unavailable Unavailab Maisha Crandall Unavailable Unavailable Encounter Details Date Type Department Care Team (Late st Contact Info) Description 06/26/2023 Telephone [facility] Medicine Cardiology [address] [facility] 8th [place] [address] [place] [address] Fabian Duran MD [address] [facility] [address] [place] [address] Social History Tobacco Use Types [...] on file Legal Sex Male 11:58 PM PHLEBOTOMY PROGRAM COORDINATOR Gender Identity Not on file Sexual Orientation Straight 07/23/2020 6: 40 AM PHLEBOTOMY PROGRAM COORDINATOR documented as of this encounter Functional Status * BP Location Answer Date of Assessment Author Right arm 06/26/2023 3:52 PM PHLEBOTOMY PROGRAM COORDINATOR Savi Salazar RMA * BP Location Answer Date of Assessment Author Right arm 06/26/2023 3:52 PM PHLEBOTOMY PROGRAM COORDINATOR Savi Salazar RMA documented as of this encounter Plan of Treatment Not on file documented as of this encounter Visit Diagnoses Not on filedocumented in this encounter Care Teams College Athletic Director Relationship Specialty Start Date End Date Shahzad Nair MD [address] [place] [address] [place] [address] PCP - General 10/29/21 [facility] [place] [address] PCP - General Genetics 04/11/24 [place] [address] [address] Surgeon Orthopedic Surgery 05/01/21 Joana Christopher, luggage attendantElectrical Continuity Inspector Cardiology 03/28/22 08/16/23 Fabian Duran MD Referring Physician Cardiology 03/28/22 Nilda Henley, RN [address] [facility] [address] [place] [address] Electrical Continuity Inspector Cardiology 03/28/22 Joana Christopher, dental insurance coordinator Failure Coordinator 08/03/23 4 Joana Christopher, dental insurance coordinator Failure Coordinator Transplant 08/16/23 Poonam Collins dental insurance coordinator Failure Coordinator Cardiology 06/20/24 Maisha Lee Primary Construction Cost Estimator 04/03/25 documented as of this encounter
--- OUTSIDE RECORDS SUMMARY | 2025-06-17 13:39 | XMS_ITS | Encounter Summary ---
Author Organization [facility] Address [address] [place] [address] Phone Care Team Providers Care Conveyor Belt Installer Name Role Phone Shahzad Nair MD Primary Care Provider [phone] Magdy Guzman MD Primary Care Provider [phone] Shahzad Nair MD Primary Care Provider [phone] Wendy Hernandez MD Unavailable [phone] Shahzad Nair MD Primary Care Provider [phone] Joana Christopher RN Unavailable Unavailable Fabian Duran MD Unavailable [phone] Nilda Henley RN Unavailable [phone] Joana Christopher RN Unavailable Unavailable Joana Christopher RN Unavailable Unavailable [facility] Primary Care Pro vider Poonam Collins RN Unavailable Unavailab Maisha Crandall Unavailable Unavailable Encounter Details Date Type Department Care Team (Late st Contact Info) Description 05/15/2019 Telephone [facility] Cardiology [address] [facility] 8[address] [place] [address] [place] [address] Osmany Hernandez Social History Tobacco Use Types Packs/Day Years Used Date Smoking Tobacco: Some Days Smokeless Tobacco: Never Alcohol Use Standard Drinks/Week Comments Yes 0 (1 standard drink = 0.6 oz pur e alcohol) Occasionally Sex and Gender Information Value Date Recorded Sex Assigned at Not on file 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 Gender Identity Not on file Sexual Orientation Straight 07/23/2020 6: 40 AM DRAFTING TEACHER documented as of this encounter Plan of Treatment Not on file documented as of this encounter Visit Diagnoses Not on filedocumented in this encounter Care Teams Conveyor Belt Installer Relationship Specialty Start Date End Date Shahzad Nair MD [address] [place] [address] [place] [address] PCP - General 12/06/17 12/18/19 Magdy Guzman MD [address] [place] [address] [place] [address] PCP - General Family Medicine 12/19/19 12/24/19 Shahzad Nair MD [address] [place] [address] [place] [address] PCP - General 12/25/19 10/28/21 Shahzad Nair MD [address] [place] [address] [place] [address] PCP - General 10/29/21 [facility] [place] [address] PCP - General Genetics 04/11/24 [place] [address] [place] [address] Surgeon Orthopedic Surgery 05/01/21 Joana Christopher, driver/guideCyanide Pot Tender Cardiology 03/28/22 08/16/23 Fabian Duran MD Referring Physician Cardiology 03/28/22 Nilda Henley, RN [address] [place] [address] Cyanide Pot Tender Cardiology 03/28/22 Joana Christopher, belt cleaner Failure Coordinator 08/03/23 4 Joana Christopher, belt cleaner Failure Coordinator Transplant 08/16/23 Poonam Collins, belt cleaner Failure Coordinator Cardiology 06/20/24 Maisha Lee Primary Commercial Engineer 04/03/25 documented as of this encounter
== END 2025-06-17 12:46 | disposition home or self-care (01) ==
PROVIDERS: Visit Provider Physician Assistant Surgical
DX: G56.03 Carpal tunnel syndrome, bilateral upper limbs (principal)
CPT/HCPCS: 95886; 95911

== ENCOUNTER 2025-06-23 00:58 | Day surgery (SDC) | payer MEDICARE, SELFPAY ==
--- OUTSIDE RECORDS SUMMARY | 2012-09-03 18:00 | XMS_ITS | Continuity of Care Document ---
Author Organization [facility] Address [address] [place] [address] [address] [place] [address] Phone Care Team Providers Care Fryer Line Helper Name Role Phone Torres PT, DPT, Matt Unavailable Unavailable Procedures Procedure Date Medical Record Fee PT RE-EVALUATION THERAPEUTIC EXERCISES NEUROMUSCULAR RE-ED MANUAL THERAPY FUNC ACTIVITY 15 MIN ULTRASOUND THERAPY HOT/COLD PACK THERAPEUTIC EXERCISES NEUROMUSCULAR RE-ED MANUAL THERAPY FUNC ACTIVITY 15 MIN ULTRASOUND THERAPY HOT/COLD PACK THERAPEUTIC EXERCISES NEUROMUSCULAR RE-ED MANUAL THERAPY FUNC ACTIVITY 15 MIN ULTRASOUND THERAPY HOT/COLD PACK THERAPEUTIC EXERCISES NEUROMUSCULAR RE-ED MANUAL THERAPY FUNC ACTIVITY 15 MIN ULTRASOUND THERAPY HOT/COLD PACK PT RE-EVALUATION THERAPEUTIC EXERCISES NEUROMUSCULAR RE-ED MANUAL THERAPY FUNC ACTIVITY 15 MIN HOT/COLD PACK THERAPEUTIC EXERCISES NEUROMUSCULAR RE-ED MANUAL THERAPY FUNC ACTIVITY 15 MIN HOT/COLD PACK THERAPEUTIC EXERCISES NEUROMUSCULAR RE-ED MANUAL THERAPY FUNC ACTIVITY 15 MIN HOT/COLD PACK PT EVALUATION THERAPEUTIC EXERCISES MANUAL THERAPY HOT/COLD PACK Advance Directives Directive Yes / No Effective Date File Name No Information Encounters Encounter Description Practice Location Reason(s) For Visit Diagnoses Date Provider Providers Copied on Encounter [address], [id number], tel:[phone] [place] No Information Brian Gutierrez. [address] [place] [address], [facility], [place], [place], [facility], . tel:[phone] [place] [address], [place], [place], [id number], tel:[phone] [place] No Information Brian Gutierrez. [address] [place] [address], [facility], [place], [facility], . tel:[phone], [place], [place], [id number], tel:[phone] [place] No Information Brian Gutierrez. [address] [place] [address], [facility], [place], [facility], . tel:[phone] [address] [place] [address], [place], [place], [id number], tel:[phone] [place] No Information Brian Gutierrez. [address] [place] [address], [facility], [place], [facility], . tel:[phone] [address], [place], [place], [id number], tel:[phone] [place] No Information Brian Gutierrez. [address] [place] [address], [address], [place], [place], [facility], . tel:[phone], [place], [place], [id number], tel:[phone] [place] No Information Brian Gutierrez. [address] [facility], [address], [place], [facility], . tel:[phone] [address], [place], [place], [id number], tel:[phone] [place] No Information Brian Gutierrez. [address] [place] [address], [facility] [address] [address], . tel:[phone] [address], [place], [place], [id number], tel:[phone] [place] No Information Brian Gutierrez. [address] [place] [address], [address] [address], . tel:[phone], [place], [id number], tel:[phone] [place] Pain in thoracic spine Brian Gutierrez. [address] [place] [address], [facility] [address] [address], . tel:[phone] Family History Family Member Type Diagnosis Age At Onset No Information Payers Payer name Insurance type Covered green party ID Authoriza tion(s) No Information Social History Type Description Quantity Date Captured Comments Sex Male Smoking Status No Information Chief Complaint And Reason For Visit No Information Reason For Referral Reason For Referral No Information History Of Present Illness Encounter Date Complaint History Of Prese nt Illness No Information Functional Status Date Functional Assessmen t No Information Instructions Date Instruction Additional Infor mation No Information Assessments Type Assessment Date No Information Patient Care Teams Name Effective Dates (start - stop) Status Members No Information
--- OUTSIDE RECORDS SUMMARY | 2021-12-16 05:40 | XMS_ITS | Continuity of Care Document ---
Author Organization [employer] [facility] Address [address] [place] [address] Phone Care Team Providers Care Business Law Professor Name Role Phone Wendy Hernandez MD Unavailable Unavailable Allergies, Adverse Reactions, Alerts Substance Reaction Status Criticality NSAIDS (Non-Steroidal Anti-Inflammatory Drug) Active No Information Medications Medication Instructions Dosage Dose Quantity Effective Dates (start - stop) Status Indication Fill Status Comments hydrocodone 7.5 mg-acetamino phen 325 mg tablet take 1 tablet by oral route every 6 to 8 hours as needed for pain 1 tablet 2 - Active Percocet 7.5 mg-325 mg tablet take 1 tablet by oral route every 6 hours as needed 1 tablet 2 - Active mupirocin 2 % topical ointment apply by topical route 3 times every day with cotton swab to each nostril for 5 days prior to surgery 04/25/21 to 04/29/21 1 tablet 1 - Active Procedures Procedure Date POSTOPERATIVE FOLLOW-UP VISIT, INCLUDED IN GLOBAL SERVICE Advance Directives Directive Yes / No Effective Date File Name No Information Encounters Encounter Description Practice Location Reason(s) For Visit Diagnoses Date Provider Encounter Disposition Gregorio [facility], [address], [place], [place], [id number] , [place] tel: [phone] [facility] knee (chief complaint) Status post total knee replacement, right 2 David Nguyen. [address], [facility] [address], [place], [place], [address] , [place]. tel: [phone] [facility], [address], [place], [place], [address] , [place] tel: [phone] [facility] RIGHT KNEE (chief complaint) [facility] [address] [address], [address], [place], [place], [address] , [place]. tel: [phone] [facility], [address], [place], [place], [address] , [place] tel: [phone] [facility] No Information [facility]. [address], [address], [place], [place], [address] , [place]. tel: [phone] [facility], [address], [place], [place], [address] , tel: [phone] [facility] [address], [address], [place], [place], [address] , [place]. tel: [phone] [facility], [address], [place], [place], [address] , [place] tel: [phone] [facility] No Information [facility]. [address], [address], [place], [place], [address] , [place]. tel: [phone] [employer] [address], [place], [place], [address] , [place] tel: [phone] [facility] Left Knee (chief complaint) right knee (chief complaint) Status post total left knee replacementPrimar y osteoarthritis of right knee [facility] [address], [address], [place], [place], [address] , [place]. tel: [phone] [employer] [address], [place], [place], [address] , [place] tel: [phone] [facility] No Information [facility]. [address], [address], [place], [place], [address] , [place]. tel: [phone] [employer] [address], [place], [place], [address] , tel: [phone] [facility] No Information 1 [facility]. [address] [address], [address], [place], [place], [address] , . tel: [phone] [employer] [address], [place], [place], [address] , tel: [phone] [facility] Bilateral Knees (chief complaint) Primary osteoarthritis of both knees 1 [facility]. [address] [address], [address], [place], [place], [address] , . tel: [phone] Family History Family Member Type Diagnosis Age At Onset No Information Payers Payer name Insurance type Identifiers Authorization(s) [facility] BL luciano ID: [id number] Name: Coverage Status Eligibility Check on: [id number] ship to Subscriber: selfPayer Address: [address], [place], [place], [facility], [facility] Phone: Social History Type Description Quantity Date Captured Comments Alcohol Use Details hard liquor 1 drink occasionally Caffeine Use Details Unknown Tobacco Use Status No Information Smoking Status Former smoker Sex Male Current Gender Male (finding) Chief Complaint And Reason For Visit From encounter dated '12/16/2021 11:40'. knee (chief complaint). Description: 6 weeks postop right tkr - telehealth call doing well without problem good rom and off walker in therapy no problems plan continue exercise fu 2 months Plan Of Treatment Date Type Action Status Referral Ordered: X-RAY EXAM OF KNEE, ONE OR TWO VIEWS Right Right ordered Referral Referred To: Physical Therapy [address] [place], [phone] Ordered: Ref[facility]uate and [facility] - Level 2 ordered Referral Ordered: X-RAY EXAM OF KNEE, ONE OR TWO VIEWS Left ordered Referral Ordered: X-RAY EXAM OF KNEE, ONE OR TWO VIEWS Bilateral ordered History Of Present Illness Encounter Date Complaint History Of Prese nt Illness knee 6 weeks postop r ight tkr - telehealth call doing well without problem good rom and off walker in therapy no problems plan continue exercise fu 2 months RIGHT KNEE first psotp righ t tkr and doign very well without pain or problems xrys good position and fixaiton plan ocnitnue exercises a nd therpay fu 1 month Left Knee Postop left TKR and doing very well with minimal pain and good early ROM and function. X-rays - good position and fixation. Plan - continue home exercises and begin outpatient physical therapy. F/U 4-6 weeks. right knee 10 years of prog ressive daily non-constant stabbing and aching 9/10 pain, swelling, limited ROM, giving way with loss of ability to stand, walk, bend, stoop and climb. No longer helped by conservative care including NSAIDs, injections and over 12 months of physician directed home exercises and physical therapy. X-rays - right knee advanced DJD with joint space loss and osteophytes, Kellgren-Yan grade 4. Impression - advanced DJD right knee. Plan - right total knee.PATIENT SCHEDULED FOR R TKR SX 07-02-21 AT . PRE & POST OP INSTRUCTIONS GIVEN TO PATIENT. Bilateral Knees young but wheelc hair bound due to advanced benny knee daily aching and stabbing 9/10 pain deformity and instability of both knees limiting his ability to stand walk stoo pbend limb stoop work and no longer helped by nsaids injections and over 12 months of physician directed home exercises xrays advanced benny knee djd with joint space loss varus osteophytes k-l grade 4imp advance d benny knee djd plan stage tkr left first Functional Status Date Description Comments No Information Instructions Date Instruction Additional Infor mation doing well contiiue exercise and therapy fu 2 months Related to Status post total knee replacement, right Disease process Right knee pain, los s of motion and function Plan - right total knee replacement The patient has clinical and radiographic evidence of degenerative joint disease of the knee. It is causing pain, limp and dysfunction including but not limited to an inability to walk, climb stairs, travel and perform hygiene and activities of daily living. The disease has not responded to conservative measures including but not limited to rest, ice/heat, NSAIDs, exercise therapy and intra-articular injections. The patient understands the natural history of the disease. The patient was given a review of treatment options including continued non-surgical treatment versus surgical treatment. The patient understands the indications, risks and potential complications of each treatment option and having failed conservative treatment now wishes to proceed with surgical total knee replacement. I concur. Related to Primary osteoarthritis of right knee Doing well Continue home exercises and begin outpatient therapy F/U 4-6 weeks Related to Status post total left knee replacement Disease process advnaced benny knee dj d plan left total knee The patient has clinical and radiographic evidence of degenerative joint disease of the knee. It is causing pain, limp and dysfunction including but not limited to an inability to walk, climb stairs, travel and perform hygiene and activities of daily living. The disease has not responded to conservative measures including but not limited to rest, ice/heat, NSAIDs, exercise therapy and intra-articular injections. The patient understands the natural history of the disease. The patient was given a review of treatment options including continued non-surgical treatment versus srugical treatment. The patient understands the indications, risks and potential complications of each treatment option and having failed conservative treatment now wishes to proceed with surgical total knee replacement. I concur. Related to Primary osteoarthritis of both knees Disease process Assessments Type Assessment Date assessment Status post total knee replaceme nt, right Mental Status Date Description Comments Orientation - Oriented to time, place, person, situation.
[2025-06-03 09:17] VITALS: BMI 48.7
--- OUTSIDE RECORDS SUMMARY | 2025-06-23 01:01 | XMS_ITS | Clinical Summary ---
Author Organization [facility] Address [address] [place] [address] Care Team Providers Care Electro Plater Name Role Phone Wendy Hernandez MD Unavailable [phone] Fabian Cervantes MD Unavailable [phone] Joana Christopher RN Unavailable Unavailable [facility] Pro vider Poonam [...] (12/23/2019): Added automatically from request for surgery [id number] Acanthosis nigricans 09/23/2019 Acute urticaria 09/23/2019 Enlarged [...] cardiac cath. Insulin pump adjusted due to table cover folder hypoglycemia when NPO for cath. Patient will [...] Description 05/08/2025 1:20 PM CDT Office Visit [facility] Cardiology [address] [place] [address] Medical Office Building [address] [place] [address] Fabian Cervantes MD Chronic systolic heart failure (HCC) (Primary Dx); Hypertension, essential; Cardiomyopathy, ischemic 05/08/2025 11:30 AM CDT Ancillary Procedure [facility] [address] [place] [address] [address] [place] [address] Chronic systolic heart failure (HCC) 05/07/2025 Telephone [facility] Transplant Heart [address] Mailstop 90-29-906 [place] [address] Joana Christopher RN 04/02/2025 Telephone [facility] Cardiology [address] [facility] Advanced Medicine 8th [place] [address] [place] [address] Fabian Cervantes MD 04/02/2025 Telephone [facility] Cardiology [address] [facility] 8th [place] [address] [place] [address] Fabian Cervantes MD from Last 3 Months Immunizations Immunization Administration Dates Next Due Influenza, Quadrivalent, Spl it, Preservative Free, Intramuscular 05/02/2021 Influenza, Trivalent, IM (MDV) 05/13/2015 Adar IT (J&J) SARS-CoV-2 Vaccination 10/21/2020 Tdap 05/15/2017 Surgical History Surgery Date Site/Laterality Comments ID BIOPSY BONE TROCAR/NEEDLE SUPERFICIAL Biopsy Bone - (Added by TW Conv) ID TONSILLECTOMY PRIMARY/SEC ONDARY <AGE 11 Tonsillectomy - [...] on file Legal Sex Male 11:58 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 Gender Identity Not on file Sexual Orientation Straight 07/23/2020 6: 40 AM HIGH HEEL BUILDER Last Filed Vital Signs Vital Sign Reading [...] history exists Medical Devices Implanted Type Area Application Support Device Identifier Shelf Expiration Date Model / Serial / Lot makeena Inc [id number] Palacos R+G High Viscosity Cement Bone Gentamicin Arthroplasty - [id number] Implanted:Qty: 1 on 04/30/2021 by Wendy Hernandez MD at [facility] Left: Knee [employer] 09/14/2023 [id number] / / [id number] [employer] [id number] Palacos R+G High Viscosity Cement Bone Gentamicin Arthroplasty - [id number] Implanted:Qty: 1 on 04/30/2021 by Wendy Hernandez MD at [facility] Left: Knee [employer] 09/14/2023 [id number] / / [id number] [employer] [id number] Vanguard 67.5mm Cruciate Retaining Cemented Primary Knee Left - [id number] Implanted:Qty: 1 on 04/30/2021 by Wendy Hernandez MD at [facility] Left: Knee [employer] [id number] 01/07/2029 [id number] / / [id number] [employer] [id number] 79mm I Beam Knee Tray Tibial Cocr - [id number] Implanted:Qty: 1 on 04/30/2021 by Wendy Hernandez MD at [facility] Left: Knee [employer] 11/04/2030 [id number] / / [id number] [employer] [id number] Ascent 34mm 1 Peg Wire Knee Anterior Posterior Component Patellar - [id number] Implanted:Qty: 1 on 04/30/2021 by Wendy Hernandez MD at [facility] Left: Knee [employer] [id number] 03/29/2026 [id number] / / [id number] [employer] [id number] Vanguard [id number] Anterior Stabilize Inlay Knee 0d Bearing - [id number] Implanted:Qty: 1 on 04/30/2021 by Wendy Hernandez MD at [facility] Left: Knee [employer] [id number] 12/23/2025 [id number] / / [id number] [employer] 79mm I Beam Knee Tray Tibial Cocr [id number] - [id number] Implanted:Qty: 1 on 10/29/2021 by Wendy Hernandez MD at [facility] Right: Knee [employer] 03/15/2031 [id number] / / [id number] [employer] Vanguard 70mm Cruciate Retaining Cemented Primary Knee Right [id number] - [id number] Implanted:Qty: 1 on 10/29/2021 by Wendy Hernandez MD at [facility] Right: Knee [employer] [id number] 01/26/2031 [id number] / / [id number] [employer] [id number] Anterior Stabilize Inlay Knee 0d Bearing - [id number] Implanted:Qty: 1 on 10/29/2021 by Wendy Hernandez MD at [facility] Right: Knee [employer] [id number] 06/23/2026 [id number] / / [id number] [employer] [id number] Palacos R High Viscosity Cement 40gm Bone Green - [id number] Implanted:Qty: 1 on 10/29/2021 by Wendy Hernandez MD at [facility] Right: Knee [employer] 11/13/2024 [id number] / / [id number] [employer] [id number] Palacos R High Viscosity Cement 40gm Bone Green - [id number] Implanted:Qty: 1 on 10/29/2021 by Wendy Hernandez MD at [facility] Right: Knee [employer] 11/13/2024 [id number] / / [id number] [employer] Ascent 37mm 1 Peg Wire Knee Anterior Posterior Component Patellar [id number] - [id number] Implanted:Qty: 1 on 10/29/2021 by Wendy Hernandez MD at [facility] Right: Knee [employer] [id number] 12/04/2025 [id number] / / [id number] Procedures Procedure Name Priority Date/Time Associated Diagnosis [...] HEPATITIS PANEL, ACUTE Routine 8 10:41 AM HIGH HEEL BUILDER Proteinuria, unspecified type from Last 3 Months or Most Recently Relevant to Health Maintenance Results * TRANSTHORACIC ECHO (TTE) COMPLETE W DOPPLER/CF W CONTRAST (05/08/2025 12:19 PM CDT) EF Mod BP 69 % CONS SCIMAGE Anatomical Region Laterality Modality Ultrasound 05/08/2025 11:4 3 AM CDT Narrative 05/22/2025 11:28 AM HIGH HEEL BUILDER [facility] Cardiac Diagnostic Lab [address] , [address] [place] [address] Transthoracic Echocardiographic Report Patient Name: VICKIE SANCHEZ J : 1970 (54y 8m) Sex: M Study Date: 05/08/2025 11:43:49 AM Ht(Inch): 70 Wt(Lb): 354.94 BSA: 2.66 Health Safety Manager: Elyssa Car RDCS Location: [facility] Order Provider: FABIAN CERVANTES Heart [...] LA Length 2C 5.2 cm MV Decel School[place] 463 LA Volume BP 59 ml MV [...] By: Oralia Trimble M.D. 05/22/2025 11:27:58 AM HIGH HEEL BUILDER CC: Fabian Cervantes MD Procedure Note Oralia Trimble MD - 05/22/2025 [facility] Cardiac Diagnostic Lab [address] , [address] [place] [address] Transthoracic Echocardiographic Report Patient Name: VICKIE SANCHEZ J : 1970 (54y 8m) Sex: M Study Date: 05/08/2025 11:43:49 AM Ht(Inch): 70 Wt(Lb): 354.94 BSA: 2.66 Health Safety Manager: Elyssa Car RDCS Location: [facility] Order Provider:FABIAN CERVANTES Heart Rate: [...] LA Length 2C 5.2 cm MV Decel [id number] LA Volume BP 59 ml MV Decel Omiu538 msec [ 104 - 258 ] LA [...] By: Oralia Trimble M.D. 05/22/2025 11:27:58 AM HIGH HEEL BUILDER CC: Fabian Cervantes MD Fabian Cervantes MD [...] 01/21/2025 8:11 AM CDT Performed at: - [facility] [id number] Dining Service Supervisor: Karan Ray PhD, Phone: [phone] Annette Loco MD LAB BLOOD ORDERABLES Final Resul t Performing Organization Address City/[facility] Co de Phone Number [facility] - 01 * (ABNORMAL) Hemoglobin A1c (10/11/2021 2:22 PM CDT) Pathologist [facility] Hgb A1C 6.5(H) 4.0 - 5.6 % [facility] Estimated Average Glucose 140 mg/dL [facility] Comment: The ADA recommends reporting an estimated Average Glucose (eAG) with all Hemoglobin A1c results using the equation derived from a study of 507 normal and diabetic adults. Minority populations were underrepresented and children were not included. (Diabetes Care 31:6930-2052, 2008). The eAG is not equivalent to a fasting glucose. Blood 10/11/2021 2:22 PM CDT 10/11/2021 3:47 PM CDT Wendy Hernandez MD LAB BLOOD ORDERABLES Final Result Performing Organization Address City/[facility]/ZIP Co de Phone Number [facility] [address] [facility] [place] [address] * Lipid panel (05/01/2021 2:07 AM CDT) Pathologist [facility] Cholesterol 166 30 - 199 mg/dL [facility] Comment: Interpretive Data Ages < or = [...] last revised on 2018. Testing performed by: [facility], [address] [place] [address]., [address] Triglycerides 86 <=149 mg/dL [facility] Comment: Interpretive Data Ages < or = [...] last revised on 2018. Testing performed by: [facility], [address] [place] [address]., [address] HDL 40 >=40 mg/dL [facility] Comment: Interpretive Data Ages < or = [...] last revised on 2018. Testing performed by: [facility], [address] [place] [address]., [address] LDL, calculated 109 <=129 mg/dL [facility] Comment: Interpretive Data Ages < or = [...] last revised on 2018. Testing performed by: [facility], [address] [place] [address]., [address] Non-HDL Cholesterol 126 mg/dL [facility] Comment: Interpretive Data Ages < or = [...] last revised on 2018. Testing performed by: [facility], [address] [place] [address]., [address] Chol/HDL ratio 4 [facility] Comment:Testing performed by : [facility], [address] [place] [address]., [address] Blood 05/01/2021 2:07 AM CDT 05/01/2021 7:45 AM CDT us Loco Harry MD LAB BLOOD ORDERABLES Final Res ult [facility] [address] [facility] [place] [address] * Hepatitis panel, acute (07/12/2018 10:41 AM HIGH HEEL BUILDER) Hep A IgM Nonreactive Nonreactive [facility] Comment: Interpretive Data If test is reported as GRAYZONE, new sample should be drawn in two weeks for testing. Current interpretive data was last revised on 2016. Hep B core IgM Nonreactive Nonreactive [facility] Comment: Interpretive Data If test is reported as GRAYZONE, new sample should be drawn for testing. Current interpretive data was last revised on 2016. Hep C Ab Nonreactive Nonreactive [facility] Comment: Interpretive Data Positive results should be confirmed by a molecular method. If positive, a second separately collected sample should be submitted for Hepatitis C Virus (HCV) RNA Detection and Quantitation by Real-Time Reverse Machine Pie Maker-PCR (RT-PCR). Current interpretive data was last revised on 2016. HepBsAg Nonreactive Nonreactive [facility] Blood specimen (specimen) 07/12/2018 10:41 AM HIGH HEEL BUILDER 07/12/2018 10:48 AM HIGH HEEL BUILDER Narrative [facility] - 07/12/2018 12:42 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 Annette Loco MD LAB MICROBIOLOGY - GENERAL ORDER RONALD Edited Result - Final [facility] [address] [facility] [place] [address] from Last 3 Months or Most Recently Relevant to Health Maintenance Insurance [facility] MEDICARE ADVANTAGE [facility] ACCESS CHO[facility] ACCESS CHO[facility] Member Subscriber Plan / Payer (Ef fective 2019-Present) Name:Vickie Sanchez Relation to Subscriber:Self Name:Medina Sancheztom Bautista Payer ID:[id number] (NA) Type:[employer] Address: [address] BUREAU OF DISABILITY [facility] MEDICARE ADVANTAGE Advance Directives For more information, please contact: [phone] * Full Code (Latest Code Status on File) Date Activated Date Inactivated Comments 10/29/2021 12:05 PM 10/31/2021 7:45 PM * Full Code Date Activated Date Inactivated Comments 04/30/2021 11:07 AM 05/02/2021 10:51 PM * Full Code Date Activated Date Inactivated Comments 12/13/2019 10:29 PM 12/25/2019 4:17 PM Care Teams Electro Plater Relationship Specialty Start Date End Date [facility], Kashif Carter [address] [place] [address] PCP - General Genetics 04/11/24 [place] [address] [place] [address] Surgeon Orthopedic Surgery 05/01/21 [place] [address] [place] [address] Referring Physician Cardiology 03/28/22 Joana Christopher, patrol agent Failure Coordinator Transplant 08/16/23 Poonam Collins, patrol agent Failure Coordinator Cardiology 06/20/24 Maisha Lee Primary Transmitter Supervisor 04/03/25
--- OUTSIDE RECORDS SUMMARY | 2025-06-23 01:01 | XMS_ITS | Encounter Summary ---
Author Organization [employer] Address [address] [place] [address] Care Team Providers Care Practice Professional Name Role Phone Magdy Guzman MD Primary Care Provider [phone] Encounter Details Date Type Department Care Team (Late st Contact Info) Description 09/18/2005 Outpatient [facility] [address] [facility] 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
--- OUTSIDE RECORDS SUMMARY | 2025-06-23 01:01 | XMS_ITS | Clinical Summary ---
Author Organization [facility] [employer] Address [address] [facility] [place] [address] Care Team Providers Care Plastics Repairer Name Role Phone Derrick Saeed MD Unavailable [phone] Partha Miles MD Unavailable [phone] Magdy Guzman MD Primary Care Provider [phone] Source Comments [facility],non-owned Affiliates and Associated Physician Practices is amultiple site organization consisting of ambulatory clinics and hospital sitesin [place], [place], [place] and [place]. This disclosure is being madepursuant to the Care Everywhere program and may not contain all information available regarding this patient. Last updated 18.[facility] [employer] Allergies Active Allergy Reactions Criticality Noted Date [...] tamsulosin (FLOMAX) 0.4 MG capsule 1 Active Plains-3 Fatty Acids (RA FISH OIL) 1000 MG [...] Type Department Care Team Description 03/31/2025 Telephone [facility] Endocrinology [address] [facility] [address], [address] [place] [address] Michael Membreno MD MEDICATION REFILL 03/27/2025 10:40 AM CDT Office Visit [facility] Endocrinology [address] [facility] [address], [address] [place] [address] Michael Membreno MD Diabetes mellitus type 2, [...] on file Legal Sex Male 6:21 AM RIVET FLUNKY Gender Identity Not on file Sexual Orientation Not on file 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 Not on file Not on file Not on file Last Filed Vital Signs Vital Sign Reading Time Taken Comments Blood Pressure 144/76 05/22/2024 10:24 AM RIVET FLUNKY Pulse 84 05/27/2015 10:57 AM RIVET FLUNKY Temperature 37.2 C (99 F) 05/27/2015 10:57 AM RIVET FLUNKY Respiratory Rate 16 05/27/2015 10:57 AM RIVET FLUNKY Oxygen Saturation - - Inhaled Oxygen Concentration - - Weight 167.8 kg (370 lb) 05/22/2024 10:24 AM RIVET FLUNKY Height 177.8 cm (5' 10) 05/22/2024 10:24 AM RIVET FLUNKY Body Mass Index 53.09 05/22/2024 10:24 AM RIVET FLUNKY Plan of Treatment Upcoming Encounters Date Type Department Care Team (Late st Contact Info) Description 08/18/2025 11:20 AM RIVET FLUNKY Office Visit [facility] - Endocrinology [address], [address] [place] [address] Michael Membreno MD [address] [facility] [address] [place] [address] Health Maintenance Due Date Last [...] URINE RANDOM PANEL Routine 05/22/2024 11:19 AM RIVET FLUNKY Diabetes mellitus type 2, insulin dependent COMPREHENSIVE METABOLIC PANEL Routine 05/22/2024 11:19 AM RIVET FLUNKY Diabetes mellitus type 2, insulin dependent [facility] DIABETES EYE EXAM Routine 01/26/2016 from Last 3 Months or Most Recently Relevant to Health Maintenance Results * HEMOGLOBIN A1C - POINT OF CARE (AMB) (03/27/2025 10:40 AM CDT) Hemoglobin A1c POCT 6.3 % [facility] Expiration Date [facility] Lot # [id number] [facility] QC Verified Yes Yes [facility] Blood BLOOD SPECIMEN / Unknown 03/27/2025 10:40 AM CDT Michael Membreno MD LAB - POINT OF CARE ORDERAB LES Final Result [facility] [address], [facility] [address] [place] [id number] [phone] * (ABNORMAL) MICROALB/CREAT RATIO URINE RANDOM PANEL (05/22/2024 11:19 AM RIVET FLUNKY) Creatinine Urine 114.35 mg/dL [facility] ACCOUNT BILL Microalbumin Urine 4.0 mg/dL [facility] ACCOUNT BILL Microalbumin/Crea tinine Ratio 34(H) <30 mg/g [facility] ACCOUNT BILL Urine URINE SPECIMEN OBTAINED BY CLEAN CATCH PROCEDURE / Unknown 05/22/2024 11:19 AM RIVET FLUNKY 05/22/2024 Narrative [facility] ACCOUNT BILL - 05/22/2024 4:09 PM RIVET FLUNKY Performed at: [address] [place] [address] [place] [id number] Client Relations Associate: Geovanny Garza MD, Phone: [phone] Michael Membreno MD LAB - URINE CHEMISTRY ORDER RONALD Final Result Performing Organization Address City/[facility]/ZIP Co de Phone Number [facility] ACCOUNT BILL [address] [place] [address] * (ABNORMAL) COMPREHENSIVE METABOLIC PANEL (05/22/2024 11:19 AM RIVET FLUNKY) Glucose 165(H) 70 - 99 mg/dL [facility] [...] BLOOD SPECIMEN / Unknown 05/22/2024 11:19 AM RIVET FLUNKY 05/22/2024 Narrative [facility] ACCOUNT BILL - 05/22/2024 4:09 PM RIVET FLUNKY Performed at: [address] [place] [id number] Client Relations Associate: Geovanny Garza MD, Phone: [phone] us Michael Membreno MD LAB - CHEMISTRY ORDERABLES Final Result Performing Organization Address City/State/[facility] Co de Phone Number [facility] ACCOUNT BILL [address] [place] [address] * DIABETES EYE EXAM (01/26/2016) us Provider Unknown HEALTH MAINTENANCE Final Result from Last 3 Months or Most Recently Relevant to Health Maintenance Insurance [facility] MEDICARE [facility] Care Teams Plastics Repairer Relationship Specialty Start Date End Date Magdy Guzman MD [facility] [place] [address] PCP - General Family Medicine 03/17/21 Derrick Saeed MD Referring Physician Plastic and Reconstructive Surgery 05/26/15 Partha Miles MD Radiation Oncologist Radiation Oncology 05/26/15
--- OUTSIDE RECORDS SUMMARY | 2025-06-23 01:01 | XMS_ITS | Encounter Summary ---
Author Organization [facility] Address [address] [facility] [place] [address] Care Team Providers Care Bd Special Education Teacher Name Role Phone Derrick Saeed MD Unavailable [phone] Partha Miles MD Unavailable Danna Rollins Primary Care Provider Unavailabl e Magdy Guzman MD Primary Care Provider [phone] Encounter Details Date Type Department Care Team (Late st Contact Info) Description 11/23/2020 Lab Requisition [facility] [address] [facility] [place] [address] Leno Smith Jr., MD [address] [facility] [address] [place] [address] Social History Tobacco Use Types Packs/Day Years Used Date Smoking Tobacco: Former Pipe Q uit: 02/14/2015 Smokeless Tobacco: Never Comments:smoked pipe 2-3 garry es per year Alcohol Use Standard Drinks/Week Comments Yes 15 (1 standard drink = 0.6 oz pu re alcohol) Sex and Gender Information Value Date Recorded Sex Assigned at Not on file Legal Sex Male 6:21 AM 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 Gender Identity Not on file Sexual Orientation Not on file 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 Not on file Not on file documented as of this encounter Plan of Treatment Upcoming Encounters Date Type Department Care Team (Late st Contact Info) Description 08/18/2025 11:20 AM 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 Office Visit [facility] Medical [facility] - Endocrinology [address] [facility], [address] [place] [address] Michael Membreno MD [address] [facility] [address] [place] [address] documented as of this encounter Procedures Procedure Name Priority Date/Time Associated Diagnosis Comments DERMATOPATHOLOGY Routine 11/20/2020 12:0 0 AM CDT documented in this encounter Results * DERMATOPATHOLOGY (11/20/2020 12:00 AM CDT) Case Report Dermatopathology Report Case: [id number] Authorizing Provider: Leno Smith Jr., MD Collected: 11/20/2020 12:00 AM Ordering Location: [facility] Derm[facility] Lab Received: 11/23/2020 12:56 PM [...] specimen consists of a shave biopsy measuring [id number]. Jar 0. 1 5:26 PM CDT DERMATOPATHOLOGY [...] characteristic determined by the Dermatopathology Laboratory at [facility], directed by Dr. Leonarda Brandt. These tests need not be, and therefore are not, approved by the [place] Food and Drug Administration. The tests are used for clinical purposes. Billing Codes Specimen Charges Stain Charges 73157 1 1 5:26 PM CDT DERMATOPATHOLOGY LABORATORY Embedded Images 1 5:26 PM CDT DERMATOPATHOLOGY LABORATORY Pathology/Cytolog y TISSUE SPECIMEN FROM SKIN / Unknown 11/20/2020 11/23/2020 12:56 PM CDT Leno Smith Jr., MD LAB - PATHOLOGY/CYTOLOG Y ORDERABLES Final Result DERMATOPATHOLOGY LABORATORY [facility] - Department of Dermatology [facility] [address] [place] [address], [address] [phone] documented in this encounter Visit Diagnoses Not on filedocumented in this encounter Care Teams Bd Special Education Teacher Relationship Specialty Start Date End Date Danna Rollins Update Information PCP - General 11/23/20 03/16/21 Magdy Guzman MD [facility] [place] [address] PCP - General Family Medicine 03/17/21 Derrick Saeed MD Referring Physician Plastic and Reconstructive Surgery 05/26/15 Partha Miles MD Radiation Oncologist Radiation Oncology 05/26/15 documented as of this encounter
--- OUTSIDE RECORDS SUMMARY | 2025-06-23 01:01 | XMS_ITS | Encounter Summary ---
Author Organization [employer] Address [address] [place] [address] Care Team Providers Care Preliminary School Psychologist Name Role Phone Magdy Guzman MD Primary Care Provider [phone] Encounter Details Date Type Department Care Team (Late st Contact Info) Description 10/18/2005 [facility] [address] [facility] 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
--- OUTSIDE RECORDS SUMMARY | 2025-06-23 01:01 | XMS_ITS | Clinical Summary ---
Author Organization [facility] Address [address] [place] [address] Phone Care Team Providers Care Meter/Relay Craftsman Name Role Phone Magdy Guzman MD Primary Care Provider Social History Tobacco Use Types Packs/Day Years Used Date Smoking Tobacco: Never Assessed Sex and Gender Information Value Date Recorded Sex Assigned at Not on file Legal Sex Male 7:38 AM STUDIO HAND Gender Identity Not on file Sexual Orientation [...] this topic Insurance [employer] Care Teams Meter/Relay Craftsman Relationship Specialty Start Date End Date Magdy Guzman MD [facility] [place] [address] PCP - General Scheduler Maintenance 07/28/20
--- OUTSIDE RECORDS SUMMARY | 2025-06-23 01:01 | XMS_ITS | Encounter Summary ---
Author Organization [facility] Address [address] [place] [address] Phone Care Team Providers Care Pig Furnace Operator Name Role Phone Wendy Hernandez MD Unavailable [phone] Shahzad Nair MD Primary Care Provider [phone] Joana Christopher RN Unavailable Unavailable Fabian Duran MD Unavailable [phone] Nilda Henley RN Unavailable [phone] Joana Christopher RN Unavailable Unavailable Joana Christopher RN Unavailable Unavailable [facility], [facility] Primary Care Pro vider Poonam Collins RN Unavailable Unavailab Maisha Crandall Unavailable Unavailable Encounter Details Date Type Department Care Team (Latest Contact Info) Description 04/25/2022 Orders Only [facility] Scanning, Provider Social [...] on file Legal Sex Male 11:58 PM MEAT SERVICE TEAM MEMBER Gender Identity Not on file Sexual Orientation Straight 07/23/2020 6: 40 AM MEAT SERVICE TEAM MEMBER documented as of this encounter Plan of Treatment Not on file documented as of this encounter Procedures Procedure Name Priority Date/Time Associated Diagnosis Comments SCAN - LABS 04/25/2022 documented in this encounter Results * SCAN - LABS (04/25/2022) us Provider Scanning Final Result documented in this encounter Visit Diagnoses Not on filedocumented in this encounter Care Teams Pig Furnace Operator Relationship Specialty Start Date End Date Shahzad Nair MD [address] [place] [address] [place] [address] PCP - General 10/29/21 04/10/24 [facility], Kashif Carter [address] [place] [address] PCP - General Genetics 04/11/24 [place] [address] [address] Surgeon Orthopedic Surgery 05/01/21 Joana Christopher, assistant director of residence lifePace Analyst Cardiology 03/28/22 08/16/23 Fabian Duran MD Referring Physician Cardiology 03/28/22 Nilda Henley, RN [address] [facility] [address] [place] [address] Pace Analyst Cardiology 03/28/22 Joana Christopher, high school library media specialist Failure Coordinator 08/03/23 4 Joana Christopher, high school library media specialist Failure Coordinator Transplant 08/16/23 Poonam Collins RN Heart Failure Coordinator Cardiology 06/20/24 Maisha Lee Primary Supervisor Epoxy Fabrication 04/03/25 documented as of this encounter
--- OUTSIDE RECORDS SUMMARY | 2025-06-23 01:01 | XMS_ITS | Encounter Summary ---
Author Organization [facility] Address [address] [place] [address] Care Team Providers Care Corporate Associate Name Role Phone Magdy Guzman MD Primary Care Provider [phone] Encounter Details Date Type Department Care Team (Late st Contact Info) Description 11/24/2004 Outpatient Historical [facility] & [facility] [address] [place] [address] Osvaldo Diaz MD [address] [facility] [address] [place] [address] Social History Tobacco Use Types Packs/Day Years Used Date Smoking Tobacco: Never Assessed Sex and Gender Information Value Date Recorded Sex Assigned at Not on file Legal Sex Male 2:42 AM HAND TUBE BENDER Gender Identity Not on file Sexual Orientation Not on file documented as of this encounter Plan of Treatment Not on file documented as of this encounter Visit Diagnoses Not on filedocumented in this encounter Care Teams Corporate Associate Relationship Specialty Start Date End Date Magdy Guzman MD PCP - General Family Practice 05/13/20 documented as of this encounter
--- OUTSIDE RECORDS SUMMARY | 2025-06-23 01:01 | XMS_ITS | Encounter Summary ---
Author Organization [facility] Address [address] [place] [address] Phone Care Team Providers Care Corncob Pipes Assembler Name Role Phone Wendy Hernandez MD Unavailable [phone] Shahzad Nair MD Primary Care Provider [phone] Joana Christopher RN Unavailable Unavailable Fabian Duran MD Unavailable Nilda Henley RN Unavailable [phone] Joana Christopher RN Unavailable Unavailable Joana Christopher RN Unavailable Unavailable [facility], [facility] Primary Care Pro vider Poonam [...] on file Legal Sex Male 11:58 PM QUALITY ASSURANCE TECHNICIAN Gender Identity Not on file Sexual Orientation Straight 07/23/2020 6: 40 AM QUALITY ASSURANCE TECHNICIAN documented as of this encounter Plan of Treatment Not on file documented as of this encounter Procedures Procedure Name Priority Date/Time Associated Diagnosis Comments SCAN - LABS 06/20/2022 documented in this encounter Results * SCAN - LABS (06/20/2022) us Provider Scanning Edited Result - Final documented in this encounter Visit Diagnoses Not on filedocumented in this encounter Care Teams Corncob Pipes Assembler Relationship Specialty Start Date End Date Shahzad Nair MD [address] [place] [address] [place] [address] PCP - General 10/29/21 04/10/24 [facility], Kashif Poseyran [address] [place] [address] PCP - General Genetics 04/11/24 [place] [address] [address] [address] Surgeon Orthopedic Surgery 05/01/21 Joana Christopher, hot stone setterElectronic Installer Cardiology 03/28/22 08/16/23 Fabian Duran MD Referring Physician Cardiology 03/28/22 Nilda Henley, RN [address] [facility] [address] [place] [address] Electronic Installer Cardiology 03/28/22 Joana Christopher, browning processor Failure Coordinator 08/03/23 4 Joana Christopher, browning processor Failure Coordinator Transplant 08/16/23 Poonam Collins browning processor Failure Coordinator Cardiology 06/20/24 Maisha Lee Primary Can Filler 04/03/25 documented as of this encounter
--- OUTSIDE RECORDS SUMMARY | 2025-06-23 01:01 | XMS_ITS | Encounter Summary ---
Author Organization [facility] Address [address] [place] [address] Phone Care Team Providers Care Hospice Chaplain Name Role Phone Shahzad Nair MD Primary Care Provider [phone] Magdy Guzman MD Primary Care Provider [phone] Shahzad Nair MD Primary Care Provider [phone] Wendy Hernandez MD Unavailable [phone] Shahzad Nair MD Primary Care Provider [phone] Joana Christopher RN Unavailable Unavailable Fabian Duran MD Unavailable [phone] Nilda Henley RN Unavailable [phone] Joana Christopher RN Unavailable Unavailable Joana Christopher RN Unavailable Unavailable [facility] Primary Care Pro vider Poonam Collins RN Unavailable Unavailab Maisha Crandall Unavailable Unavailable Encounter Details Date Type Department Care Team (Late st Contact Info) Description 05/15/2019 Telephone [facility] Cardiology [address] [facility] 8th [place] [address] [place] [address] Osmany Hernandez Social History Tobacco Use Types Packs/Day Years Used Date Smoking Tobacco: Some Days Smokeless Tobacco: Never Alcohol Use Standard Drinks/Week Comments Yes 0 (1 standard drink = 0.6 oz pur e alcohol) Occasionally Sex and Gender Information Value Date Recorded Sex Assigned at Not on file Legal Sex Male 11:58 PM KEG FILLER Gender Identity Not on file Sexual Orientation Straight 07/23/2020 6: 40 AM KEG FILLER documented as of this encounter Plan of Treatment Not on file documented as of this encounter Visit Diagnoses Not on filedocumented in this encounter Care Teams Hospice Chaplain Relationship Specialty Start Date End Date Shahzad Nari MD [address] [place] [address] [place] [address] PCP - General 12/06/17 12/18/19 Magdy Guzman MD [address] [place] [address] [place] [address] PCP - General Family Medicine 12/19/19 12/24/19 Shahzad Nair MD [address] [place] [address] [place] [address] PCP - General 12/25/19 10/28/21 Shahzad Nair MD [address] [place] [address] [place] [address] PCP - General 10/29/21 04[facility]10[facility] [address] [place] [address] PCP - General Genetics 04/11/24 [place] [address] [place] [address] Surgeon Orthopedic Surgery 05/01/21 Joana Christopher, gravity meter operatorBankruptcy Law Specialist Cardiology 03/28/22 08/16/23 Fabian Duran MD Referring Physician Cardiology 03/28/22 Nilda Henley, RN [address] [place] [address] Bankruptcy Law Specialist Cardiology 03/28/22 Joana Christopher, fingerprint technician Failure Coordinator 08/03/23 4 Joana Christopher, fingerprint technician Failure Coordinator Transplant 08/16/23 Poonam Collins, fingerprint technician Failure Coordinator Cardiology 06/20/24 Maisha Lee Primary Sas Bi Developer 04/03/25 documented as of this encounter
--- OUTSIDE RECORDS SUMMARY | 2025-06-23 01:01 | XMS_ITS | Encounter Summary ---
Author Organization [facility] Address [address] [place] [address] Phone Care Team Providers Care Backend Tester Name Role Phone Wendy Hernandez MD Unavailable [phone] Shahzad Nair MD Primary Care Provider [phone] Joana Christopher RN Unavailable Unavailable Fabian Duran MD Unavailable Nilda Henley RN Unavailable Joana Christopher RN Unavailable Unavailable Joana Christopher RN Unavailable Unavailable [facility], [facility] Primary Care Pro vider Poonam Collins RN Unavailable Unavailab Maisha Crandall Unavailable Unavailable Encounter Details Date Type Department Care Team (Late st Contact Info) Description 06/26/2023 Telephone [facility] Medicine Cardiology [address] [facility] 8th [place] [address] [place] [address] Fabian Duran MD [address] [facility] [address] [place] [address] Social History Tobacco Use Types [...] on file Legal Sex Male 11:58 PM SURGERY AIDE Gender Identity Not on file Sexual Orientation Straight 07/23/2020 6: 40 AM SURGERY AIDE documented as of this encounter Functional Status * BP Location Answer Date of Assessment Author Right arm 06/26/2023 3:52 PM SURGERY AIDE Savi Salazar RMA * BP Location Answer Date of Assessment Author Right arm 06/26/2023 3:52 PM SURGERY AIDE Savi Salazar RMA documented as of this encounter Plan of Treatment Not on file documented as of this encounter Visit Diagnoses Not on filedocumented in this encounter Care Teams Backend Tester Relationship Specialty Start Date End Date Shahzad Nair MD [address] [place] [address] [place] [address] PCP - General 10/29/21 [facility]/10[facility] [address] [place] [address] PCP - General Genetics 04/11/24 [place] [address] [address] Surgeon Orthopedic Surgery 05/01/21 Joana Christopher, manager project managementCommunications Agent Cardiology 03/28/22 08/16/23 Faiban Duran MD Referring Physician Cardiology 03/28/22 Nilda Henley, RN [address] [facility] [address] [place] [address] Communications Agent Cardiology 03/28/22 Joana Christopher, gas distribution and emergency clerk Failure Coordinator 08/03/23 4 Joana Christopher, gas distribution and emergency clerk Failure Coordinator Transplant 08/16/23 Poonam Collins gas distribution and emergency clerk Failure Coordinator Cardiology 06/20/24 Maisha Lee Primary Pipe Bender 04/03/25 documented as of this encounter
--- OUTSIDE RECORDS SUMMARY | 2025-06-23 01:01 | XMS_ITS | Encounter Summary ---
Author Organization [employer] Address [address] [place] [address] Care Team Providers Care Board Worker Name Role Phone Magdy Guzman MD Primary Care Provider Encounter Details Date Type Department Care Team (Late st Contact Info) Description 04/13/2005 Outpatient Historical [facility] Endocrinology & Diabetes Management [address] [facility] [address] [place] [address] Jennifer Cantu MD [address] [place] [address] Social History Tobacco Use Types Packs/Day Years Used Date Smoking Tobacco: Never Assessed Sex and Gender Information Value Date Recorded Sex Assigned at Not on file Legal Sex Male 2:42 AM MAGNETIC LOCATER Gender Identity Not on file Sexual Orientation Not on file documented as of this encounter Plan of Treatment Not on file documented as of this encounter Visit Diagnoses Not on filedocumented in this encounter Care Teams Board Worker Relationship Specialty Start Date End Date Magdy Guzman MD PCP - General Family Practice 05/13/20 documented as of this encounter
--- OUTSIDE RECORDS SUMMARY | 2025-06-23 01:01 | XMS_ITS | Encounter Summary ---
Author Organization [employer] Address [address] [place] [address] Care Team Providers Care Religious Ritual Slaughterer Name Role Phone Magdy Guzman MD Primary Care Provider [phone] Encounter Details Date Type Department Care Team (Late st Contact Info) Description 07/25/2005 Outpatient [facility] [address] [facility] [place] [address] Billy Ramsay MD [address] [place] [address] Social History Tobacco Use Types Packs/Day Years Used Date Smoking Tobacco: Never Assessed Sex and Gender Information Value Date Recorded Sex Assigned at Not on file Legal Sex Male 2:42 AM PILOT INSTRUCTOR Gender Identity Not on file Sexual Orientation Not on file documented as of this encounter Plan of Treatment Not on file documented as of this encounter Visit Diagnoses Not on filedocumented in this encounter Care Teams Religious Ritual Slaughterer Relationship Specialty Start Date End Date Magdy Guzman MD PCP - General Family Practice 05/13/20 documented as of this encounter
--- OUTSIDE RECORDS SUMMARY | 2025-06-23 01:01 | XMS_ITS | Encounter Summary ---
Author Organization [employer] Address [address] [place] [address] Care Team Providers Care Ghost Writer Name Role Phone Magdy Guzman MD Primary Care Provider [phone] Encounter Details Date Type Department Care Team (Late st Contact Info) Description 05/27/2005 Outpatient [facility] [address] [place] [address] [address] [place], [place] [address] Rafa Grimaldo MD Social History Tobacco Use Types Packs/Day Years Used Date Smoking Tobacco: Never Assessed Sex and Gender Information Value Date Recorded Sex Assigned at Not on file Legal Sex Male 2:42 AM DADO OPERATOR Gender Identity Not on file Sexual Orientation Not on file documented as of this encounter Plan of Treatment Not on file documented as of this encounter Visit Diagnoses Not on filedocumented in this encounter Care Teams Ghost Writer Relationship Specialty Start Date End Date Magdy Guzman MD PCP - General Family Practice 05/13/20 documented as of this encounter
--- OUTSIDE RECORDS SUMMARY | 2025-06-23 01:01 | XMS_ITS | Clinical Summary ---
Author Organization [facility] Address [address] [place] [address] Phone Care Team Providers Care Network Operations Technician Name Role Phone Magdy Guzman MD Primary Care Provider [phone] Allergies Active Allergy Reactions Criticality Noted Date [...] jonah-dexamethaso ne (MAXITROL) 3.5mg/mL-10,000 unit/mL-0.1 % suspension csjoalbt-qajcbnnpj-d exameth 3.5 mg/mL-10,000 unit/mL-0.1% eye drops Active [...] TAKE 2 TABLETS BY MOUTH IN THE GRAPHIC ART TECHNICIAN BEFORE BREAKFAST. MAY ALSO TAKE 1 TABLET [...] on file Legal Sex Male 2:42 AM MONITORING COORDINATOR Gender Identity Not on file Sexual [...] T d or Tdap) 05/15/2027 05/15/2017 Insurance [facility] BLUE ACCESS CHOICE Care Teams Network Operations Technician Relationship Specialty Start Date End Date Magdy Guzman MD PCP - General Family Practice 05/13/20
[2025-06-23 12:24] VITALS: BP 141/75; PULSE 88; RESP 15; TEMP 36.7; O2SAT 99; BMI 49.6
--- NOTE | 2025-06-23 12:27 | SUR.PREOP ---
Patient has a decxcom meter. Patient's blood sugar is 132 per dexcom meter at 1227 in pre op.
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
[2025-06-23] MEDS: LACTATED RINGERS 1,000 ML 150 ML IV CONT (12:44)
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
--- NOTE | 2025-06-23 13:18 | SUR.OPER ---
EGD END 1313 COLONOSCOPY START 131
--- NOTE | 2025-06-23 13:21 | S_PTH ---
PATIENT: Clifton Sanchez LOC: [facility]#:[id number] AGE/SX: 54/M ROOM: RE06/23/[address]: Jam Lane MD : 1970 BED: DIS: 06/23/2025 SPEC #: [id number] RECD: 06/23/25 14:33 STATUS: GEORGINA STEVENS #: [id number] LISSET: 06/23/25 13:[address]: Jam Lane DEPT: [facility] Surgical RECD BY: Viki Franklin ENTERED: 06/23/25 14:34 SP TYPE: Surgical OTHR DR: Piper Luu, LIBRARY MANAGER Tissues: A - Small Bowel Bx B - Gastric Biopsy C - Colon Polypectomy D - Colon Biopsy Procedures: Hematoxylin and Eosin Stain Gross and Microscopic Level 4
[2025-06-23 13:36] VITALS: BP 95/61; PULSE 80; RESP 15; O2SAT 97
[2025-06-23 13:46] VITALS: BP 126/83; PULSE 84; RESP 15; O2SAT 100
[2025-06-23 13:54] VITALS: BP 132/55; PULSE 81; RESP 15; O2SAT 99
== END 2025-06-23 14:09 | disposition home or self-care (01) ==
PROVIDERS: Referring Provider Nurse Practitioner; Visit Provider Internal Medicine Gastroenterology
PROC: 0DJ08ZZ Inspection of Upper Intestinal Tract, Via Natural or Artificial Opening Endoscopic (ICD-10-PCS; CPT 45378; principal; 2025-06-23 13:30)
DX: D64.9 Anemia, unspecified (principal); R19.7 Diarrhea, unspecified; K63.5 Polyp of colon; K29.50 Unspecified chronic gastritis without bleeding; K63.89 Other specified diseases of intestine; Z87.891 Personal history of nicotine dependence; E66.01 Morbid (severe) obesity due to excess calories; Z68.42 Body mass index [BMI] 45.0-49.9, adult
CPT/HCPCS: 45385; 45380; 88305; J2003; J2704; J7120